=== PATIENT | female | born 1950 | race Caucasian/White ===

== ENCOUNTER 2017-05-22 18:19 | Observation (INO) ==
[2017-05-22 19:00] LABS: Basophils % 0.3 %; Eosinophils # 0.1 K/mcL (0.0-0.6); Eosinophils % 1.8 %; Hemoglobin 10.5 g/dL (11.5-15.4); Immature Granulocytes % 0.4 % (0-4); Immature Platelets 2.4 % (1.1-6.1); Lymphocytes # 0.8 K/mcL (0.6-4.6); Lymphocytes % 11.3 %; Mean Corpuscular HGB Conc 31.8 g/dL (31.6-35.5); Mean Corpuscular Hemoglobin 31.8 pg (28.0-33.3); Mean Platelet Volume 9.2 fL (9.4-12.4); Monocytes # 0.5 K/mcL (0.0-1.3); Monocytes % 6.3 %; Neutrophils # 5.8 K/mcL (1.6-8.9); Platelet Count 176 K/mcL (140-400); Red Cell Distribution Width 15.1 % (11.5-14.5); Segmented Neutrophils % 79.9 %
[2017-05-22 19:09] LABS: INR 1.2; Prothrombin Time 12.7 Seconds (9.4-12.1)
[2017-05-22 19:11] LABS: Activated Partial Thrombo Time 33.7 Seconds (26.0-36.0)
[2017-05-22 19:13] LABS: Calcium 9.8 mg/dL (8.6-10.8)
[2017-05-22 19:35] LABS: Albumin 3.6 g/dL (3.5-5.0); Albumin/Globulin Ratio 0.9 (1.1-2.2); Bilirubin,Direct 0.3 mg/dL (0.0-0.5); Bilirubin,Indirect 0.4 mg/dL (0.0-1.2); Bilirubin,Total 0.7 mg/dL (0.2-1.2); Globulin 4.1 g/dL (2.4-3.5); Total Protein 7.7 g/dL (6.0-8.3)
--- NOTE | 2017-05-22 19:46 | Emergency Department Note ---
Disposition Clinical Impression: Chest pain Qualifiers: Chest pain type: unspecified Qualified Code(s): R07.9 - Chest pain, unspecified Disposition: Admitted As Inpatient Condition: Good Referrals: Dwayne-Carole Weiss DO [Primary Care Provider] - Forms: ED Satisfaction Letter Time of Disposition: 19:59 Chest Pain HPI - General Chief Complaint: ED Chest Pain Stated Complaint: Chest Pain Time Seen by Provider: 05/22/17 18:33 Source: patient, family Mode of arrival: ambulatory Limitations: no limitations Vital Signs Reviewed: Yes Nursing Notes Reviewed: Yes - History of Present Illness HPI Narrative: Patient presents to the ED with the chief complaint of chest pain. Patient reports that for the last 4 days she has been having intermittent exertional centralized chest pressure and heaviness. States that she has had pain like this previously, but normally responds to nitroglycerin. 4 days ago she had pain that did respond to nitroglycerin, but over the past few days her pain has been coming increasingly more consistent and not responding anymore to nitroglycerin. She does complain of some shortness of breath above baseline as well. She also complains of intermittent nausea after eating and some epigastric discomfort. She does have a history of GERD and is noncompliant with her medications. Her last heart catheter was in 2010 and she does not have any history of stents or bypasses. She denies any fever, chills, headache , changes in vision, abdominal pain, vomiting, pain or swelling in her legs. No history DVT or PE. Severity scale (1-10): 0 - Related Data Home Medications Medication Instructions Recorded Confirmed Albuterol Neb [AccuNeb] 1.25 mg IH Q8H PRN 06/08/16 08/09/16 Albuterol Sulfate [Albuterol 2 puff IH Q4HR PRN 06/08/16 08/09/16 Inhaler] Allopurinol [Zyloprim 100 MG] 100 mg PO BID 06/08/16 08/09/16 Amitriptyline [Elavil] 50 mg PO HS 06/08/16 08/09/16 Aspirin 81 mg PO DAILY 06/08/16 08/09/16 Atorvastatin Calcium [Lipitor] 20 mg PO HS 06/08/16 08/09/16 Citalopram Hydrobromide [Celexa] 40 mg PO DAILY 06/08/16 08/09/16 HYDROcodone/Acet 5/325 mg [[place] 1 tab PO Q6H PRN 06/08/16 08/09/16 5-325 mg] Insulin Glargine,Hum.rec.anlog 62 unit SQ BID 06/08/16 08/09/16 [Lantus Solostar] Isosorbide MONOnitrate (24 HR) 60 mg PO DAILY 06/08/16 08/09/16 [Imdur] LORazepam [Ativan] 1 mg PO BID PRN 06/08/16 08/09/16 Magnesium Oxide [Magnesium] 2,400 mg PO DAILY 06/08/16 08/09/16 Nitroglycerin [Nitrostat] 0.4 mg SL Q5M PRN 06/08/16 08/09/16 Omeprazole [PriLOSEC] 40 mg PO Q48H 06/08/16 08/09/16 Oxygen 2 l NS AD 06/08/16 08/09/16 Tiotropium [Spiriva] 18 mcg IH 0700 06/08/16 08/09/16 metFORMIN [Glucophage] 500 mg PO BIDWM 06/08/16 08/09/16 BuPROPion XL (24 HR) [Wellbutrin 150 mg PO DAILY 08/09/16 08/09/16 Xl] Previous Rx's Medication Instructions Recorded Metoprolol [Lopressor] 12.5 mg PO BID tablet 08/11/16 Allergies Allergy/AdvReac Type Severity Reaction Status Date / Time indomethacin [From Indocin] AdvReac See Verified 08/09/16 19:54 Comments sulfamethoxazole AdvReac Gastrointestinal Verified 08/09/16 19:54 [From Bactrim] Upset trimethoprim [From Bactrim] AdvReac Gastrointestinal Verified 08/09/16 19:54 Upset All systems ED: reviewed and negative except as stated. 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 - Social History Smoking Status: Former smoker Alcohol use: Reports: none Drug use: Reports: none Physical Exam - General Limitations: no limitations General appearance: alert, in no apparent distress, obese - Head Head exam: atraumatic, normocephalic, normal inspection - Eye Eye exam: Present: normal appearance, PERRL, EOMI - ENT ENT exam: normal exam, normal oropharynx, mucous membranes moist - Chest Chest inspection: Present: normal inspection, symmetric chest wall rise - Respiratory Respiratory exam: Present: normal lung sounds bilaterally - Cardiovascular Cardiovascular exam: Present: regular rate, normal rhythm, normal heart sounds - Abdominal Exam Abdominal exam: Present: soft, Non-Tender. Absent: tenderness - Extremities Exam Extremities exam: Present: normal inspection, full ROM. Absent: tenderness, pedal edema - Neurological Exam Neurological exam: Present: alert, oriented X3 - Psychiatric Psychiatric exam: Present: normal affect, normal mood - Skin Skin exam: Present: warm, dry, intact, normal color Course Vital Signs Temperature 98.2 F 05/22/17 18:21 Pulse Rate 94 05/22/17 18:21 Respiratory Rate 20 05/22/17 18:21 Blood Pressure 120/72 05/22/17 18:21 O2 Sat by Pulse Oximetry 94 05/22/17 18:21 Temperature 98.2 F 05/22/17 18:21 Pulse Rate 88 05/22/17 19:29 Respiratory Rate 16 05/22/17 19:29 Blood Pressure 132/62 05/22/17 19:29 O2 Sat by Pulse Oximetry 98 05/22/17 19:29 Oxygen Delivery Oxygen Delivery Nasal Cannula Chest Pain - Medical Records Medical records reviewed: Yes I reviewed the patient's medical records. - Lab Data Lab results reviewed: Yes I reviewed the patient's lab results. Result diagrams: 05/22/17 18:54 05/22/17 18:54 Lab Results 05/22/17 05/22/17 05/22/17 Range/Units 18:54 18:54 18:54 WBC 7.2 (4.3-11.1) K/mcL RBC 3.30 L (3.82-4.97) M/mcL Hgb 10.5 L (11.5-15.4) g/dL Hct 33.0 L (35.3-44.9) % MCV 100.0 (83.0-100.0) fL MCH 31.8 (28.0-33.3) pg MCHC 31.8 (31.6-35.5) g/dL RDW 15.1 H (11.5-14.5) % Plt Count 176 (140-400) K/mcL MPV 9.2 L (9.4-12.4) fL Immature Gran % 0.4 (0-4) % Seg Neutrophils % 79.9 % Lymphocytes % 11.3 % Monocytes % 6.3 % Eosinophils % 1.8 % Basophils % 0.3 % Neutrophils # 5.8 (1.6-8.9) K/mcL Lymphocytes # 0.8 (0.6-4.6) K/mcL Monocytes # 0.5 (0.0-1.3) K/mcL Eosinophils # 0.1 (0.0-0.6) K/mcL Basophils # 0.0 (0.0-0.2) K/mcL Immature Plt Fraction 2.4 (1.1-6.1) % PT 12.7 H (9.4-12.1) Seconds INR 1.2 APTT 33.7 (26.0-36.0) Seconds Sodium 140 (136-145) mEq/L Potassium 4.0 (3.5-4.5) mEq/L Chloride 101 (98-109) mEq/L Carbon Dioxide 28 (19-29) mEq/L BUN 22 H (7-20) mg/dL Creatinine 1.39 H (0.57-1.11) mg/dL Est GFR ( Amer) 46 L (> 60) Est GFR (Non-Af Amer) 38 L (> 60) BUN/Creatinine Ratio 16 (6-26) Glucose 148 H (70-99) mg/dL Calculated Osmolality 296 (280-300) Calcium 9.8 (8.6-10.8) mg/dL Total Bilirubin (0.2-1.2) mg/dL Direct Bilirubin (0.0-0.5) mg/dL Indirect Bilirubin (0.0-1.2) mg/dL AST (5-34) Units/L ALT (0-55) Units/L Alkaline Phosphatase (38-126) Units/L Troponin I (0-0.03) ng/mL Serum Total Protein (6.0-8.3) g/dL Albumin (3.5-5.0) g/dL Globulin (2.4-3.5) g/dL Albumin/Globulin Ratio (1.1-2.2) Lipase (8-78) Units/L 05/22/17 05/22/17 Range/Units 18:54 18:54 WBC (4.3-11.1) K/mcL RBC (3.82-4.97) M/mcL Hgb (11.5-15.4) g/dL Hct (35.3-44.9) % MCV (83.0-100.0) fL MCH (28.0-33.3) pg MCHC (31.6-35.5) g/dL RDW (11.5-14.5) % Plt Count (140-400) K/mcL MPV (9.4-12.4) fL Immature Gran % (0-4) % Seg Neutrophils % % Lymphocytes % % Monocytes % % Eosinophils % % Basophils % % Neutrophils # (1.6-8.9) K/mcL Lymphocytes # (0.6-4.6) K/mcL Monocytes # (0.0-1.3) K/mcL Eosinophils # (0.0-0.6) K/mcL Basophils # (0.0-0.2) K/mcL Immature Plt Fraction (1.1-6.1) % PT (9.4-12.1) Seconds INR APTT (26.0-36.0) Seconds Sodium (136-145) mEq/L Potassium (3.5-4.5) mEq/L Chloride (98-109) mEq/L Carbon Dioxide (19-29) mEq/L BUN (7-20) mg/dL Creatinine (0.57-1.11) mg/dL Est GFR ( Amer) (> 60) Est GFR (Non-Af Amer) (> 60) BUN/Creatinine Ratio (6-26) Glucose (70-99) mg/dL Calculated Osmolality (280-300) Calcium (8.6-10.8) mg/dL Total Bilirubin 0.7 (0.2-1.2) mg/dL Direct Bilirubin 0.3 (0.0-0.5) mg/dL Indirect Bilirubin 0.4 (0.0-1.2) mg/dL AST 35 H (5-34) Units/L ALT 30 (0-55) Units/L Alkaline Phosphatase 146 H (38-126) Units/L Troponin I 0.00 (0-0.03) ng/mL Serum Total Protein 7.7 (6.0-8.3) g/dL Albumin 3.6 (3.5-5.0) g/dL Globulin 4.1 H (2.4-3.5) g/dL Albumin/Globulin Ratio 0.9 L (1.1-2.2) Lipase 64 (8-78) Units/L - Radiology Data Radiology results reviewed: Yes I reviewed the patient's radiology results. - EKG Data EKG attestation: Yes I reviewed and interpreted this EKG. EKG results narrative: Sinus rhythm, rate 94, NC interval 153, QRS 94, QTC 401, left axis deviation, nonspecific T-wave changes, no acute ischemic changes compared to previous. Heart Score - Score History: Highly Suspicious EKG: Non Specific repolarisation Disturbance Age: 45-65 Risk Factors: Equal/Greater than 3 risk factor or history of atherosclerotic disease Troponin: Less than normal limit HEART Score Total: 6 S.B.A.R. - S.B.A.R. Situation: Demographics, MOA Background: Presenting Complaint, Relevant PMH, Meds, & Allergies Assessment: Vital Signs, Course and respsone to treatment, Exam Concerns, Patient/Family Expectation, Pertinant Lab Results, Outstanding Labs Recommendation: Barrier(s) to disposition, Recommendation based on pending studies, treatments, or consults S.B.A.R. Report Given to: Dr. Radha HuffmanB.AChristine Repor Time: 20:02 Attestation Statement - Attestation Attestation: I personally interviewed and examined this patient and my medical decision- making was reviewed with the Resident Physician, Dr. Zavala. I agree with the documented findings, disposition and treatment plan as described except to the extent set forth below. Patient is a 66-year-old white female with a known history of coronary artery disease and has had prior Most recent was in 2010. Patient presents today with a 4 day history of intermittent exertional chest pain that she has been experiencing at home that initially was relieved with nitroglycerin but over the past 48 hours has not been working as well to alleviate her discomfort. Patient has some baseline shortness of breath with this exertion as well. Patient also complaining of some epigastric pain that is aggravated by eating and associated with some mild nausea. Patient currently following aspirin and nitroglycerin here. Rest pain-free resting comfortably with stable vital signs and is in no acute distress at this time. Patient's physical exam findings as documented. Patient's EKG was unchanged from prior with no acute ischemic changes. Patient's lab evaluation was unremarkable her upper abdominal labs including lipase were within normal limits, and initial troponin is within normal limits. Chest x-ray was clear with no pulmonary edema. Patient will be admitted for further evaluation of her chest pain. Discussed with hospitalist who accepted patient for admission.
[2017-05-22] MEDS ORDERED: Naloxone 0.4 MG/ML INJ IVP PRN (21:11)
[2017-05-22] MEDS ORDERED: Acetaminophen 325 MG TABLET PO PRN (21:11)
[2017-05-22] MEDS ORDERED: Nitroglycerin 0.4 MG TAB.SUBL SL PRN (21:15)
[2017-05-22] MEDS ORDERED: Famotidine 20 MG TABLET PO SCH (21:15)
[2017-05-22] MEDS ORDERED: *HR* HYDROcodone/Acet 5/325 mg TABLET PO PRN (21:15)
[2017-05-22] MEDS ORDERED: *HR* LORazepam 1 MG TABLET PO PRN (21:15)
[2017-05-22] MEDS ORDERED: Ipratropium/Albuterol Neb 3 ML IH PRN (21:18)
--- NOTE | 2017-05-22 21:25 | Internal Med History&Physical ---
Date of Encounter: 05/22/17 Time of Encounter: 21:23 Assessment and Plan (1) Chest pain Current visit: Yes Status: Acute Patient reporting chest pressure with activity, relieved by rest and nitro. She had Stress test 07/2016 which was negative for ischemia or infarct. Echo showed EF 60-65% with mild LV diastolic dysfunction. [facility] in 2010 reportedly showed minimal CAD according to Dr. Patel's previous outpatient note. Patient follows with Dr. Patel and last saw him in October. EKG showed no ischemic changes. Troponin was negative at 0.00. Hold morning imdur until after stress test. Continuous gambling monitor serial troponins echocardiogram and stress test. Qualifiers: Chest pain type: unspecified Qualified Code(s): R07.9 - Chest pain, unspecified (2) Type 2 diabetes mellitus Current visit: Yes Status: Chronic Check Hgb A1c Diabetic diet. Check blood sugars ACHS and Q6hr while NPO Long acting insulin 52u BID, hold morning dose until after testing and taking PO (home dose is 62u BID) Continue home dose of short acting 14u TIDWM, hold while NPO and give sliding scale correction Q6hr while NPO. hypoglycemic protocol. 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 Lora as an outpatient for CKD 3. Her creatinine of 1.39 is consistent with her CKD 3, and slightly above her previous baseline of 1.31. Check chemistry daily. Qualifiers: Chronic kidney disease stage: stage 3 (moderate) Qualified Code(s): N18.3 - Chronic kidney disease, stage 3 (moderate) (4) COPD (chronic obstructive pulmonary disease) Current visit: Yes Status: Chronic Patient wears 2L O2 at home. She denies any increased shortness of breath or coughing. Not in exacerbation. duoneb treatments QID PRN continue home dose of Spiriva, albuterol. Titrate O2 to maintain saturation > 92%. Qualifiers: COPD type: unspecified COPD Qualified Code(s): J44.9 - Chronic obstructive pulmonary disease, unspecified (5) SILVIA (obstructive sleep apnea) Current visit: Yes Status: Chronic Patient reports she wears Bipap overnight. Respiratory therapy consulted for bipap. (6) DVT prophylaxis Current visit: Yes Status: Acute anti-embolic stockings heparin 5000u TID Internal Medicine - H&P: HPI Chief complaint: chest pain Admitted From: Emergency Dept Plans for Post Hospital Care: Home History of present illness: Ms. Campa is a 66 year old female with COPD, type 2 DM, HTN, HLD, CKD3, sleep apnea, CHF, sleep apnea, who presented to the ED with complaints of chest pain. Patient reports she has not felt well since last Sunday, reporting she's felt tired, weak, with poor appetite, nausea and some diarrhea. She reports she started having chest pressure on Sunday with activity, relieved by rest and nitro. The episodes of chest pain increased in frequency and intensity through today, when she felt like the chest pressure was not relieved by the nitro. She reports occasional chills, lightheadedness, palpitations. She denies any increased coughing or shortness of breath. Evaluation in the ED included an EKG which showed no ischemic changes. Troponin was negative at 0.00. CXR showed no acute process. Creatinine was mildly elevated above her previous baseline to 1.39. She was anemic with Hgb of 10.5, down from previous of 11.3 last July. She was satting in the 90s on her 2L O2 she wears at home. On exam, patient was alert and oriented, in no acute distress. She is morbidly obese. Lungs were clear bilaterally to auscultation, heart had regular rate and rhythm. No peripheral edema. Past Med Surg Social Fam HX - Past Medical History Medical history: CHF, COPD, coronary artery disease, diabetes, hyperlipidemia, hypertension, renal disease Psychiatric history: anxiety, depression - Past Surgical History Surgical History: appendectomy, cholecystectomy, hysterectomy, knee replacement - Social History Smoking Status: Former smoker Smokeless Tobacco Status: No Alcohol use: none Drug use: none - Family History Daughter Hx Family Cancer: Yes (unknown what kind) Mother Living Status: Still Living Hx Family Cardiac Disorders: Yes Father Living Status: Age at : 41 Cause of : stomach cancer Hx Family Cancer: Yes Internal Medicine - H&P: Meds Albuterol Neb [AccuNeb] 1.25 mg IH Q8H PRN 06/08/16 [History] Albuterol Sulfate [Albuterol Inhaler] 2 puff IH Q4HR PRN 06/08/16 [History] Allopurinol [Zyloprim 100 MG] 100 mg PO BID 06/08/16 [History] Amitriptyline [Elavil] 50 mg PO HS 06/08/16 [History] Aspirin 81 mg PO DAILY 06/08/16 [History] Atorvastatin Calcium [Lipitor] 40 mg PO HS 06/08/16 [History] Citalopram Hydrobromide [Celexa] 40 mg PO DAILY 06/08/16 [History] HYDROcodone/Acet 5/325 mg [[place] 5-325 mg] 1 tab PO Q6H PRN 06/08/16 [History] Insulin Glargine,Hum.rec.anlog [Lantus Solostar] 100 unit SQ BID 06/08/16 [ History] Isosorbide MONOnitrate (24 HR) [Imdur] 60 mg PO DAILY 06/08/16 [History] LORazepam [Ativan] 1 mg PO BID PRN 06/08/16 [History] Magnesium Oxide [Magnesium] 1,200 mg PO BID 06/08/16 [History] Nitroglycerin [Nitrostat] 0.4 mg SL Q5M PRN 06/08/16 [History] Omeprazole [PriLOSEC] 40 mg PO DAILY PRN 06/08/16 [History] Oxygen 2 l NS AD 06/08/16 [History] Tiotropium [Spiriva] 18 mcg IH 0700 06/08/16 [History] metFORMIN [Glucophage] 500 mg PO BIDWM 06/08/16 [History] BuPROPion XL (24 HR) [Wellbutrin Xl] 150 mg PO DAILY 08/09/16 [History] Insulin ASPART [NovoLOG] 14 unit SQ TIDAC 05/22/17 [History] Multivitamin [Multi-Day Vitamins] 1 each PO DAILY 05/22/17 [History] Allergies indomethacin [From Indocin] Adverse Reaction (Verified 08/09/16 19:54) See Comments Patient state she was hospitalized after taking "effected my whole system" sulfamethoxazole [From Bactrim] Adverse Reaction (Verified 08/09/16 19:54) Gastrointestinal Upset trimethoprim [From Bactrim] Adverse Reaction (Verified 08/09/16 19:54) Gastrointestinal Upset All Systems PM: A 10-system review of systems was performed and is negative for pertinent findings except as documented above in the HPI. - Constitutional Constitutional: anorexia, chills, no fever(s), no night sweats - EENT Eyes: no change in vision, no discharge, no pain, no photophobia Ears: no ear discharge, no ear pain, no tinnitus Nose, mouth and throat: no dysphagia, no nasal discharge, no neck pain, no sore throat - Cardiovascular Cardiovascular ROS IM: chest pain, dyspnea on exertion, lightheadedness, palpitations, no diaphoresis, no dyspnea, no syncope - Respiratory Respiratory: dyspnea, no cough, no wheezing, no excessive phlegm production - Gastrointestinal Gastrointestinal: diarrhea, nausea, no abdominal pain, no hematemesis, no hematochezia, no melena, no vomiting - Genitourinary Genitourinary: no change in urinary stream, no dysuria, no flank pain, no hematuria - Musculoskeletal Musculoskeletal ROS IM: no numbness, no tingling - Integumentary Integumentary IM: no rash, no unusual bruising - Neurological Neurological ROS: no confusion, no convulsions, no focal weakness, no numbness, no tingling, no tremor(s) - Hematologic/Lymphatic Hematologic/Lymphatic: no easy bruising - Constitutional Vitals: Temp Pulse Resp BP Pulse Ox 98.2 F 90 14 127/64 95 05/22/17 18:21 05/22/17 20:30 05/22/17 21:11 05/22/17 21:11 05/22/17 20:30 General appearance: Present: A&O X 3, morbidly obese, pleasant, no acute distress - Head Head exam: Present: atraumatic, normocephalic - Eye Eye exam: Present: PERRL, conjuntiva pink, sclera anicteric Pupils: Present: PERRL - Neck Neck exam general surgery: Present: supple, trachea midline. Absent: lymphadenopathy - Respiratory Respiratory exam: Present: CTAB. Absent: accessory muscle use, rales, rhonchi, wheezes - Cardiovascular Cardiovascular exam: Present: RRR, +S1, +S2. Absent: diastolic murmur, gallop, rubs, systolic murmur - GI/Abdominal GI/Abdominal exam: Present: normal bowel sounds, soft, no peritoneal signs. Absent: distended, tenderness - Extremities Exam Extremities exam: Present: warm, radial pulses palpable and symmetrical. Absent : calf tenderness, cyanotic, pedal edema - Neurological Exam Neurological exam: Present: CN II-XII intact, oriented X3, no focal deficits. Absent: facial droop, speech deficit - Skin Skin exam: Present: dry, intact Internal Med - H&P Results - Labs CBC & Chem 7: 05/22/17 18:54 05/22/17 18:54 Labs: All Lab Results (24 Hours) 05/22/17 05/22/17 05/22/17 Range/Units 18:54 18:54 18:54 WBC 7.2 (4.3-11.1) K/mcL RBC 3.30 L (3.82-4.97) M/mcL Hgb 10.5 L (11.5-15.4) g/dL Hct 33.0 L (35.3-44.9) % MCV 100.0 (83.0-100.0) fL MCH 31.8 (28.0-33.3) pg MCHC 31.8 (31.6-35.5) g/dL RDW 15.1 H (11.5-14.5) % Plt Count 176 (140-400) K/mcL MPV 9.2 L (9.4-12.4) fL Immature Gran % 0.4 (0-4) % Seg Neutrophils % 79.9 % Lymphocytes % 11.3 % Monocytes % 6.3 % Eosinophils % 1.8 % Basophils % 0.3 % Neutrophils # 5.8 (1.6-8.9) K/mcL Lymphocytes # 0.8 (0.6-4.6) K/mcL Monocytes # 0.5 (0.0-1.3) K/mcL Eosinophils # 0.1 (0.0-0.6) K/mcL Basophils # 0.0 (0.0-0.2) K/mcL Immature Plt Fraction 2.4 (1.1-6.1) % PT 12.7 H (9.4-12.1) Seconds INR 1.2 APTT 33.7 (26.0-36.0) Seconds Sodium 140 (136-145) mEq/L Potassium 4.0 (3.5-4.5) mEq/L Chloride 101 (98-109) mEq/L Carbon Dioxide 28 (19-29) mEq/L BUN 22 H (7-20) mg/dL Creatinine 1.39 H (0.57-1.11) mg/dL Est GFR ( Amer) 46 L (> 60) Est GFR (Non-Af Amer) 38 L (> 60) BUN/Creatinine Ratio 16 (6-26) Glucose 148 H (70-99) mg/dL Calculated Osmolality 296 (280-300) Calcium 9.8 (8.6-10.8) mg/dL Magnesium 2.0 (1.6-2.6) mg/dL Total Bilirubin (0.2-1.2) mg/dL Direct Bilirubin (0.0-0.5) mg/dL Indirect Bilirubin (0.0-1.2) mg/dL AST (5-34) Units/L ALT (0-55) Units/L Alkaline Phosphatase (38-126) Units/L Troponin I (0-0.03) ng/mL Serum Total Protein (6.0-8.3) g/dL Albumin (3.5-5.0) g/dL Globulin (2.4-3.5) g/dL Albumin/Globulin Ratio (1.1-2.2) Lipase (8-78) Units/L 05/22/17 05/22/17 Range/Units 18:54 18:54 WBC (4.3-11.1) K/mcL RBC (3.82-4.97) M/mcL Hgb (11.5-15.4) g/dL Hct (35.3-44.9) % MCV (83.0-100.0) fL MCH (28.0-33.3) pg MCHC (31.6-35.5) g/dL RDW (11.5-14.5) % Plt Count (140-400) K/mcL MPV (9.4-12.4) fL Immature Gran % (0-4) % Seg Neutrophils % % Lymphocytes % % Monocytes % % Eosinophils % % Basophils % % Neutrophils # (1.6-8.9) K/mcL Lymphocytes # (0.6-4.6) K/mcL Monocytes # (0.0-1.3) K/mcL Eosinophils # (0.0-0.6) K/mcL Basophils # (0.0-0.2) K/mcL Immature Plt Fraction (1.1-6.1) % PT (9.4-12.1) Seconds INR APTT (26.0-36.0) Seconds Sodium (136-145) mEq/L Potassium (3.5-4.5) mEq/L Chloride (98-109) mEq/L Carbon Dioxide (19-29) mEq/L BUN (7-20) mg/dL Creatinine (0.57-1.11) mg/dL Est GFR ( Amer) (> 60) Est GFR (Non-Af Amer) (> 60) BUN/Creatinine Ratio (6-26) Glucose (70-99) mg/dL Calculated Osmolality (280-300) Calcium (8.6-10.8) mg/dL Magnesium (1.6-2.6) mg/dL Total Bilirubin 0.7 (0.2-1.2) mg/dL Direct Bilirubin 0.3 (0.0-0.5) mg/dL Indirect Bilirubin 0.4 (0.0-1.2) mg/dL AST 35 H (5-34) Units/L ALT 30 (0-55) Units/L Alkaline Phosphatase 146 H (38-126) Units/L Troponin I 0.00 (0-0.03) ng/mL Serum Total Protein 7.7 (6.0-8.3) g/dL Albumin 3.6 (3.5-5.0) g/dL Globulin 4.1 H (2.4-3.5) g/dL Albumin/Globulin Ratio 0.9 L (1.1-2.2) Lipase 64 (8-78) Units/L - Diagnostic Studies Chest x-ray Additional comments: Chest X-Ray 05/22/17 18:33 IMPRESSION: No acute process. D/ / Radu Moy MD / Radu Moy MD Interpreting Provider: Radu Moy MD
[2017-05-22] MEDS ORDERED: *HR* Dextrose 50 % in Water (Syg) 50 ML SYRINGE IVP PRN (21:26)
[2017-05-22] MEDS ORDERED: Dextrose Gel 15 GM PO PRN ×2 (21:26)
[2017-05-22] MEDS ORDERED: D5% in Water 1,000 ML IVC PRN (21:26)
[2017-05-22] MEDS ORDERED: Insulin DETEMIR 100 UNIT/ML X5UNITS SQ SCH ×2 (21:30→21:31)
[2017-05-22 21:57] LABS: Hemoglobin A1C 6.5 %
[2017-05-22] MEDS ORDERED: Aspirin 325 MG TABLET PO ONE (21:59)
[2017-05-22] MEDS: *HR* Heparin 5,000 UNIT/ML VIAL SQ SCH (23:04)
[2017-05-23] MEDS ORDERED: 0.9 % Sodium Chloride 1,000 ML IVC SCH (00:15)
[2017-05-23 01:23] LABS: Basophils % 0.3 %; Eosinophils # 0.2 K/mcL (0.0-0.6); Eosinophils % 2.7 %; Hematocrit 32.8 % (35.3-44.9); Hemoglobin 10.4 g/dL (11.5-15.4); Immature Granulocytes % 0.3 % (0-4); Lymphocytes # 1.4 K/mcL (0.6-4.6); Mean Corpuscular HGB Conc 31.7 g/dL (31.6-35.5); Mean Corpuscular Hemoglobin 31.9 pg (28.0-33.3); Mean Corpuscular Volume 100.6 fL (83.0-100.0); Mean Platelet Volume 9.4 fL (9.4-12.4); Monocytes # 0.5 K/mcL (0.0-1.3); Neutrophils # 4.6 K/mcL (1.6-8.9); Platelet Count 155 K/mcL (140-400); Red Blood Count 3.26 M/mcL (3.82-4.97); Red Cell Distribution Width 15.3 % (11.5-14.5); Segmented Neutrophils % 68.7 %
[2017-05-23 01:35] LABS: Calcium 9.7 mg/dL (8.6-10.8); Potassium 4.4 mEq/L (3.5-4.5)
[2017-05-23] MEDS: Insulin LISPRO 300 UNITS/3 ML VIAL SQ SCH ×2 (01:47→06:39)
[2017-05-23] MEDS: *HR* Heparin 5,000 UNIT/ML VIAL SQ SCH (06:39)
[2017-05-23 06:54] VITALS: BP 126/77
[2017-05-23] MEDS ORDERED: Tiotropium 18 MCG inhalation IH SCH (07:00)
[2017-05-23] MEDS ORDERED: Insulin LISPRO 300 UNITS/3 ML VIAL SQ SCH (08:00)
--- NOTE | 2017-05-23 08:43 | Internal Med Progress Note ---
Date of Encounter: 05/23/17 Time of Encounter: 08:41 - Subjective Interval history: Pt seen and examined. She states her chest pain is not present at the time and she does not have any issues with breathing while on her home dose oxygen. Does not have nausea, vomiting, diarrhea. - Constitutional Vitals: Temp Pulse Resp BP Pulse Ox 97.9 F 86 18 126/77 94 05/23/17 06:45 05/23/17 06:45 05/23/17 06:45 05/23/17 06:45 05/23/17 06:45 General appearance: Present: cooperative, morbidly obese, pleasant, no acute distress - Head Head exam: Present: atraumatic, normocephalic - Eye Eye exam: Present: PERRL, conjuntiva pink, sclera anicteric - Neck Neck exam general surgery: Present: supple, trachea midline. Absent: lymphadenopathy - Respiratory Respiratory exam: Present: CTAB. Absent: accessory muscle use, rales, rhonchi, wheezes - Cardiovascular Cardiovascular exam: Present: RRR, +S1, +S2. Absent: diastolic murmur, gallop, rubs, systolic murmur - GI/Abdominal GI/Abdominal exam: Present: normal bowel sounds, soft, no peritoneal signs. Absent: distended, tenderness - Extremities Exam Extremities exam: Present: warm, radial pulses palpable and symmetrical. Absent : calf tenderness, cyanotic, pedal edema - Neurological Exam Neurological exam: Present: alert, no focal deficits. Absent: facial droop, speech deficit - Skin Skin exam: Present: dry, intact Internal Medicine: Result - Labs CBC & Chem 7: 05/23/17 01:07 05/23/17 01:07 Labs: Short CBC 05/23/17 Range/Units 01:07 WBC 6.8 (4.3-11.1) K/mcL Hgb 10.4 L (11.5-15.4) g/dL Hct 32.8 L (35.3-44.9) % Plt Count 155 (140-400) K/mcL Neutrophils # 4.6 (1.6-8.9) K/mcL BMP 05/23/17 01:07 Sodium 139 Potassium 4.4 Chloride 101 Carbon Dioxide 28 BUN 23 H Creatinine 1.58 H Glucose 242 H Calcium 9.7 Cardiac Enzymes 05/23/17 05/23/17 Range/Units 01:07 06:57 Troponin I 0.00 0.00 (0-0.03) ng/mL - ABG Interpretation ABG results: PT/INR, D-dimer PT 12.7 Seconds (9.4-12.1) H 05/22/17 18:54 Consult Discharge Plan - Plan Referrals: Carole Spears DO [Primary Care Provider] -
[2017-05-23] MEDS ORDERED: Magnesium Oxide 400 MG TABLET PO SCH (09:00)
[2017-05-23] MEDS ORDERED: Famotidine 20 MG TABLET PO SCH (09:00)
[2017-05-23] MEDS ORDERED: BuPROPion XL (24 HR) 150 MG TABLET PO SCH (09:00)
[2017-05-23] MEDS ORDERED: Isosorbide MONOnitrate (24 HR) 60 MG TAB.ER.24H PO SCH (09:00)
[2017-05-23] MEDS ORDERED: Aspirin 81 MG TAB.CHEW PO SCH (09:00)
[2017-05-23] MEDS ORDERED: GI Cocktail 40 ML EACH PO ONE (10:10)
--- NOTE | 2017-05-23 10:36 | Cardiology Progress Note ---
Date of Encounter: 05/23/17 Time of Encounter: 10:30 Assessment and Plan Discussion w patient/family: The assessment and plan as outlined above was discussed with the patient and/or family members who expressed understanding and agreement. All questions were answered. Thank you for involving us in the care of your patient. Please call with any questions. Subjective Principal diagnosis: Chest pain Interval history: Mrs. Campa is a 66 y.o. female with past medical history significant for of NIDDM and CKD who was admitted to [facility] on 05/23/17 with chest pain. Cardiology is consulted on 05/23/17 for recommendations on further workup. Patient has had a LHC in 2010 which revealed minimal CAD at that time. she as also had a nuclear stress test in July of 2016 that was negative for ischemia or infarct at that time. Today Mrs. Campa states that shebegan having symptoms last Sunday however they have been persistent since Sunday. She sates she was having moderate to sever chest pressure that did not radiate. She thinks it may have worsened with exertion or emotional stresses but is not sure. She denies any exacerbation by position. It was not relieved by nitroglycerine. She dose have some relief with rest. She denies any increased dyspnea, diaphoresis, syncope, presyncope. She has had some Nausea. She also admits to having emotional stresses with her adult children having to move back in with her. She has no further complaints or concerns at this time. Objective Vital Signs, Last 4 Hours Temp Pulse Resp BP Pulse Ox 05/23/17 09:25 94 05/23/17 06:45 97.9 F 86 18 126/77 94 Results 05/23/17 01:07 05/23/17 01:07 Lab Results 05/23/17 05/23/17 05/23/17 01:07 01:07 01:07 WBC 6.8 Hgb 10.4 L Hct 32.8 L Plt Count 155 Sodium 139 Potassium 4.4 Chloride 101 Carbon Dioxide 28 BUN 23 H Creatinine 1.58 H Glucose 242 H Calcium 9.7 Troponin I 0.00 05/23/17 06:57 WBC Hgb Hct Plt Count Sodium Potassium Chloride Carbon Dioxide BUN Creatinine Glucose Calcium Troponin I 0.00 Consult Discharge Plan - Plan Referrals: Dwayne-Carole Weiss DO [Primary Care Provider] -
--- NOTE | 2017-05-23 10:39 | Cardiology Consult Note ---
<Wilton King - Last Filed: 05/23/17 13:06> Date of Encounter: 05/23/17 Time of Encounter: 10:37 Assessment and Plan (1) Atypical chest pain Status: Acute Patient with persistent chest pain since sunday. She is unsure if worsened by exertion. Not relieved with NTG. No acute changes in her EKG. TN 0.00 X 3. She has epigastric tenderness on exam and states this is similar to her symptoms. Also having Nausea after meals last few days. She has had a LHC in 2010 which revealed minimal CAD. She had a Nuclear stress test and echocardiogram in july of 2016 that revealed no major abnormalities. Given her prior LHC and recent cardiac testing as well as her history and exam would not recommend any further cardiac testing at this time. Discussed with patient and she is agreeable to this plan. Would consider dyspepsia. We will give the patient a GI cocktail and reasses. May consider adding a PPI. Would also consider anxiety given her recent home stresses. Thank you for consulting cardiology. (2) Diabetes Status: Acute mgmt per primary team. Qualifiers: Qualified Code(s): E11.9 - Type 2 diabetes mellitus without complications (3) CKD (chronic kidney disease) Status: Acute stage 3a/b SCR slightly above baseline. continue to monitor. avoid nephrotoxins. Qualifiers: Chronic kidney disease stage: stage 3 (moderate) Qualified Code(s): N18.3 - Chronic kidney disease, stage 3 (moderate) (4) Morbid obesity Status: Acute advise weight loss (5) Former smoker Status: Acute Discussion w patient/family: The assessment and plan as outlined above was discussed with the patient and/or family members who expressed understanding and agreement. All questions were answered. Thank you for involving us in the care of your patient. Please call with any questions. History of Present Illness Consult date: 05/23/17 Requesting physician: Bhargav Farah Consult reason: Chest pain Chief complaint: chest pain History of present illness: Mrs. Campa is a 66 y.o. female with past medical history significant for of NIDDM and CKD who was admitted to [facility] on 05/23/17 with chest pain. Cardiology is consulted on 05/23/17 for recommendations on further workup. Patient has had a LHC in 2010 which revealed minimal CAD at that time. she as also had a nuclear stress test in July of 2016 that was negative for ischemia or infarct at that time. Today Mrs. Campa states that she began having symptoms last Sunday however they have been persistent since Sunday. She sates she was having moderate to sever chest pressure that did not radiate. She thinks it may have worsened with exertion or emotional stresses but is not sure. She denies any exacerbation by position. It was not relieved by nitroglycerine. She dose have some relief with rest. She denies any increased dyspnea, diaphoresis, syncope, presyncope. She has had some Nausea. She also admits to having emotional stresses with her adult children having to move back in with her. She has no further complaints or concerns at this time. Past Med Surg Social Fam HX - Past Medical History Medical history: CHF, COPD, coronary artery disease, diabetes, hyperlipidemia, hypertension, renal disease Psychiatric history: anxiety, depression - Past Surgical History Surgical History: appendectomy, cholecystectomy, hysterectomy, knee replacement - Social History Smoking Status: Former smoker Smokeless Tobacco Status: No Alcohol use: none Drug use: none - Family History Mother Living Status: Still Living Hx Family Cardiac Disorders: Yes Father Living Status: Age at : 41 Cause of : stomach cancer Hx Family Cancer: Yes Daughter Hx Family Cancer: Yes (unknown what kind) Medications and Allergies Albuterol Neb [AccuNeb] 1.25 mg IH Q8H PRN 06/08/16 [History] Albuterol Sulfate [Albuterol Inhaler] 2 puff IH Q4HR PRN 06/08/16 [History] Allopurinol [Zyloprim 100 MG] 100 mg PO BID 06/08/16 [History] Amitriptyline [Elavil] 50 mg PO HS 06/08/16 [History] Aspirin 81 mg PO DAILY 06/08/16 [History] Atorvastatin Calcium [Lipitor] 40 mg PO HS 06/08/16 [History] Citalopram Hydrobromide [Celexa] 40 mg PO DAILY 06/08/16 [History] HYDROcodone/Acet 5/325 mg [[place] 5-325 mg] 1 tab PO Q6H PRN 06/08/16 [History] Insulin Glargine,Hum.rec.anlog [Lantus Solostar] 100 unit SQ BID 06/08/16 [ History] Isosorbide MONOnitrate (24 HR) [Imdur] 60 mg PO DAILY 06/08/16 [History] LORazepam [Ativan] 1 mg PO BID PRN 06/08/16 [History] Magnesium Oxide [Magnesium] 1,200 mg PO BID 06/08/16 [History] Nitroglycerin [Nitrostat] 0.4 mg SL Q5M PRN 06/08/16 [History] Omeprazole [PriLOSEC] 40 mg PO DAILY PRN 06/08/16 [History] Oxygen 2 l NS AD 06/08/16 [History] Tiotropium [Spiriva] 18 mcg IH 0700 06/08/16 [History] metFORMIN [Glucophage] 500 mg PO BIDWM 06/08/16 [History] BuPROPion XL (24 HR) [Wellbutrin Xl] 150 mg PO DAILY 08/09/16 [History] Insulin ASPART [NovoLOG] 14 unit SQ TIDAC 05/22/17 [History] Multivitamin [Multi-Day Vitamins] 1 each PO DAILY 05/22/17 [History] Omeprazole [PriLOSEC] 40 mg PO DAILY #30 cap 05/23/17 [Rx] Allergies indomethacin [From Indocin] Adverse Reaction (Verified 08/09/16 19:54) See Comments Patient state she was hospitalized after taking "effected my whole system" sulfamethoxazole [From Bactrim] Adverse Reaction (Verified 08/09/16 19:54) Gastrointestinal Upset trimethoprim [From Bactrim] Adverse Reaction (Verified 08/09/16 19:54) Gastrointestinal Upset All Systems Review: A 10-system review of systems was performed and is negative for pertinent findings except as documented above in the HPI. - Constitutional Constitutional: no anorexia, no chills, no fever(s), no malaise, no night sweats , no weakness, no weight gain, no weight loss - EENT Eyes: no blurred vision, no pain Nose, mouth and throat: no bleeding gums, no epistaxis - Cardiovascular Cardiovascular: as per HPI - Respiratory Respiratory: no cough, no dyspnea, no hemoptysis - Gastrointestinal Gastrointestinal: abdominal pain (epigastic), no coffee ground emesis, no hematemesis, no hematochezia - Genitourinary Genitourinary: no dysuria, no hematuria, no nocturia - Musculoskeletal Musculoskeletal: no muscle cramps, no muscle weakness - Integumentary Integumentary: no erythema, no rash - Neurological Neurological: no abnormal speech, no dizziness, no focal weakness - Psychiatric Psychiatric: anxiety - Hematological/Lymphatic Hematologic/Lymphatic: no easy bleeding, no easy bruising Physical Examination Vital Signs, Last 4 Hours Temp Pulse Resp BP Pulse Ox 05/23/17 09:25 94 05/23/17 06:45 97.9 F 86 18 126/77 94 General: Conversant, No Apparent Distress HEENT: Atraumatic, Normocephaly, Mucus Membranes Moist Neck: No JVD, Normal carotid pulses Cardiac: Reg Rate and Rhythm, Normal S1 and S2, No Murmur Lungs: Normal Breath Sounds, No Wheeze, Rales, Rhonchi Neuro: Alert and responsive, No focal deficits noted Abdomen: Soft, Other (tenerness in the epigastric region. ) Skin: No rashes noted on visualized skin Musculoskeletal: No Chest Wall Tenderness Extremities: No Clubbing, No Cyanosis, No Edema Results 05/23/17 01:07 05/23/17 01:07 Lab Results 05/23/17 05/23/17 05/23/17 01:07 01:07 01:07 WBC 6.8 Hgb 10.4 L Hct 32.8 L Plt Count 155 Sodium 139 Potassium 4.4 Chloride 101 Carbon Dioxide 28 BUN 23 H Creatinine 1.58 H Glucose 242 H Calcium 9.7 Troponin I 0.00 05/23/17 06:57 WBC Hgb Hct Plt Count Sodium Potassium Chloride Carbon Dioxide BUN Creatinine Glucose Calcium Troponin I 0.00 - Imaging and Cardiology Chest Xray: report reviewed, image reviewed - EKG Interpretation EKG results cardiology: personally reviewed, normal ECG, sinus rhythm Consult Discharge Plan - Plan Instructions: Omeprazole (By mouth), Chronic Kidney Disease (DC), Diabetes Mellitus Type 2 in Adults (DC) Additional Instructions: Please follow up with your pcp within 1 week and can reforming 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 Referrals: Able-Carole Weiss DO [Primary Care Provider] - (Tried calling this number so many times., nobody grain picker. Please make sure you call for an apppt. for hospital follow up) Owen Kelley DO [Partnered Physician] - Prescriptions: Omeprazole [PriLOSEC] 40 mg PO DAILY #30 cap <Shelby Franklin - Last Filed: 05/23/17 17:35> Date of Encounter: 05/23/17 Assessment and Plan Discussion w patient/family: The assessment and plan as outlined above was discussed with the patient and/or family members who expressed understanding and agreement. All questions were answered. Thank you for involving us in the care of your patient. Please call with any questions. History of Present Illness History of present illness: Ms. Campa is a 66 year old female All Systems Review: A 10-system review of systems was performed and is negative for pertinent findings except as documented above in the HPI. Results 05/23/17 01:07 05/23/17 01:07 Lab Results 05/23/17 05/23/17 05/23/17 01:07 01:07 01:07 WBC 6.8 Hgb 10.4 L Hct 32.8 L Plt Count 155 Sodium 139 Potassium 4.4 Chloride 101 Carbon Dioxide 28 BUN 23 H Creatinine 1.58 H Glucose 242 H Calcium 9.7 Troponin I 0.00 05/23/17 06:57 WBC Hgb Hct Plt Count Sodium Potassium Chloride Carbon Dioxide BUN Creatinine Glucose Calcium Troponin I 0.00 - Attending Attestation I examined this patient and my medical decision-making was reviewed with the Resident Physician. I agree with the documented findings, disposition and treatment plan. Ms. Campa presents with epigastric discomfort that is reproducible on palpation. Her symptoms have been persistent for several days and made worse with food. She admits to taking her PPI only intermittently. Her troponins have been negative and ECG without concerning findings. She had a stress test in July that was negative for ischemia. No further cardiac testing is warranted. Recommend evaluation by GI.
--- NOTE | 2017-05-23 11:08 | Discharge Summary ---
<Amauri Ervin - Last Filed: 05/23/17 14:46> Date of Encounter: 05/23/17 Time of Encounter: 11:04 - Discharge Diagnosis (1) Chest pain Priority: Primary Status: Acute Qualifiers: Chest pain type: unspecified Qualified Code(s): R07.9 - Chest pain, unspecified (2) CKD (chronic kidney disease) Priority: Secondary Status: Acute Qualifiers: Chronic kidney disease stage: stage 3 (moderate) Qualified Code(s): N18.3 - Chronic kidney disease, stage 3 (moderate) (3) Morbid obesity Priority: Secondary Status: Acute (4) COPD (chronic obstructive pulmonary disease) Priority: Secondary Status: Chronic Qualifiers: COPD type: unspecified COPD Qualified Code(s): J44.9 - Chronic obstructive pulmonary disease, unspecified (5) Hypertension Priority: Secondary Status: Chronic Qualifiers: Hypertension type: essential hypertension Qualified Code(s): I10 - Essential (primary) hypertension (6) Type 2 diabetes mellitus Priority: Secondary Status: Chronic Qualifiers: Diabetes mellitus complication status: with unspecified complications Diabetes mellitus rn long term care insulin use: with rn long term care use Qualified Code(s) : E11.8 - Type 2 diabetes mellitus with unspecified complications; 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 (7) DVT prophylaxis Priority: Secondary Status: Acute - Discharge Medications Prescriptions: Omeprazole [PriLOSEC] 40 mg PO DAILY #30 cap Home Medications: Albuterol Neb [AccuNeb] 1.25 mg IH Q8H PRN 06/08/16 [History] Albuterol Sulfate [Albuterol Inhaler] 2 puff IH Q4HR PRN 06/08/16 [History] Allopurinol [Zyloprim 100 MG] 100 mg PO BID 06/08/16 [History] Amitriptyline [Elavil] 50 mg PO HS 06/08/16 [History] Aspirin 81 mg PO DAILY 06/08/16 [History] Atorvastatin Calcium [Lipitor] 40 mg PO HS 06/08/16 [History] Citalopram Hydrobromide [Celexa] 40 mg PO DAILY 06/08/16 [History] HYDROcodone/Acet 5/325 mg [[place] 5-325 mg] 1 tab PO Q6H PRN 06/08/16 [History] Insulin Glargine,Hum.rec.anlog [Lantus Solostar] 100 unit SQ BID 06/08/16 [ History] Isosorbide MONOnitrate (24 HR) [Imdur] 60 mg PO DAILY 06/08/16 [History] LORazepam [Ativan] 1 mg PO BID PRN 06/08/16 [History] Magnesium Oxide [Magnesium] 1,200 mg PO BID 06/08/16 [History] Nitroglycerin [Nitrostat] 0.4 mg SL Q5M PRN 06/08/16 [History] Omeprazole [PriLOSEC] 40 mg PO DAILY PRN 06/08/16 [History] Oxygen 2 l NS AD 06/08/16 [History] Tiotropium [Spiriva] 18 mcg IH 0700 06/08/16 [History] metFORMIN [Glucophage] 500 mg PO BIDWM 06/08/16 [History] BuPROPion XL (24 HR) [Wellbutrin Xl] 150 mg PO DAILY 08/09/16 [History] Insulin ASPART [NovoLOG] 14 unit SQ TIDAC 05/22/17 [History] Multivitamin [Multi-Day Vitamins] 1 each PO DAILY 05/22/17 [History] Omeprazole [PriLOSEC] 40 mg PO DAILY #30 cap 05/23/17 [Rx] Allergies/Adverse Reactions: Allergies indomethacin [From Indocin] Adverse Reaction (Verified 08/09/16 19:54) See Comments Patient state she was hospitalized after taking "effected my whole system" sulfamethoxazole [From Bactrim] Adverse Reaction (Verified 08/09/16 19:54) Gastrointestinal Upset trimethoprim [From Bactrim] Adverse Reaction (Verified 08/09/16 19:54) Gastrointestinal Upset Procedures/tests Complete & Pending: Procedures Performed prior 72 hours Category Date Time Status EV echocardiogram Routine Y 05/22/17 21:19 Ordered Date of admission: 05/22/17 20:16 Primary care physician: Carole Rice Consults: 05/23/17 00:05 Consult to Cardiology [CONS] Routine Comment: Consulting Provider: Paul Trujillo Reason for Consult: 66F with exertional chest pain relieved by nitro and rest , negative stress test in 07/2016. Risk factors include DM, obesity, HTN. Please evaluate need for LHC given concerning symptoms and risk factors Call Completed: No Discharging clinician: Amauri Ervin Anticipated date of discharge: 05/23/17 - Patient Status Disposition: Home, Self-Care Condition: Good Functional capacity at discharge: independent ambulation Overall status at discharge: patient is progressing back to baseline - Discharge Instructions Instructions: Omeprazole (By mouth), Chronic Kidney Disease (DC), Diabetes Mellitus Type 2 in Adults (DC) Follow Up With: Dwayne-Carole Weiss DO [Primary Care Provider] - (Tried calling this number so many times., nobody tack picker. Please make sure you call for an apppt. for hospital follow up) Owen Kelley DO [Partnered Physician] - Additional Instructions: Please follow up with your pcp within 1 week and bilingual trainer 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 - Diet and Activity Activity: increase activity as tolerated Diet: low fat, low cholesterol Interval History: Pt seen and examined. She states her chest pain is not present at the time and she does not have any issues with breathing while on her home dose oxygen. Does not have nausea, vomiting, diarrhea. Hospital course: Ms. Campa is a 66 year old female who presents with chest pain that started last Sunday. She states it started with weakness that began last . The pain was related with exertion and relieved with rest. Patient did have a recent echo and stress test last July, both which were negative. She also had a LHC in 2010 which showed minimal stenosis. She had negative troponins and EKD did not show any acute changes. Cardiology was consulted as she was deemed high risk for CAD and they did not believe it was cardiac in etiology. It was likely due to her anxiety vs. GERD since she stopped taking her Omeprazole. She will be going back home with PPI and will see Dr. Kelley for hospital follow up. - Time Spent with Patient Total time spent providing and/or coordinating discharge services: Greater than 30 minutes - Constitutional Vitals: Temp Pulse Resp BP Pulse Ox 97.9 F 86 18 126/77 94 05/23/17 06:45 05/23/17 06:45 05/23/17 06:45 05/23/17 06:45 05/23/17 09:25 General appearance: Present: cooperative, morbidly obese, pleasant, no acute distress - Head Head exam: Present: atraumatic, normocephalic - Eye Eye exam: Present: PERRL, conjuntiva pink, sclera anicteric - Neck Neck exam general surgery: Present: supple, trachea midline. Absent: lymphadenopathy - Respiratory Respiratory exam: Present: CTAB. Absent: accessory muscle use, rales, rhonchi, wheezes - Cardiovascular Cardiovascular exam: Present: RRR, +S1, +S2. Absent: diastolic murmur, gallop, rubs, systolic murmur - GI/Abdominal GI/Abdominal exam: Present: normal bowel sounds, soft, no peritoneal signs. Absent: distended, tenderness - Extremities Exam Extremities exam: Present: warm, radial pulses palpable and symmetrical. Absent : calf tenderness, cyanotic, pedal edema - Neurological Exam Neurological exam: Present: alert, no focal deficits. Absent: facial droop, speech deficit - Skin Skin exam: Present: dry, intact <Bhargav Farah - Last Filed: 05/23/17 16:32> Date of Encounter: 05/23/17 Date of admission: 05/22/17 20:16 Primary care physician: Carole Rice Consults: 05/23/17 00:05 Consult to Cardiology [CONS] Routine Comment: Consulting Provider: Cardiology Cassandra Reason for Consult: 66F with exertional chest pain relieved by nitro and rest , negative stress test in 07/2016. Risk factors include DM, obesity, HTN. Please evaluate need for LHC given concerning symptoms and risk factors Call Completed: No Hospital course: Ms. Campa is a 66 year old female - Time Spent with Patient Total time spent providing and/or coordinating discharge services: - Constitutional Vitals: Temp Pulse Resp BP Pulse Ox 97.9 F 86 18 126/77 94 05/23/17 06:45 05/23/17 06:45 05/23/17 07:48 05/23/17 06:45 05/23/17 09:25 - Attending Attestation I examined this patient and my medical decision-making was reviewed with the Resident Physician on 05/23/17. I agree with the documented findings, disposition and treatment plan as described except to the extent set forth below. Seen and evaluated at bedside 66 YO F with Morbid Obesity, OHS on chronic home O2, SILVIA on CPAP, CKD III DM, HTN, CAD She was admitted to observation for chest pain management From her description, her chest pain seems to be GERD and or stable angina Her work up so far is negative Stress test and ECHO 07/2016 unremarkable LHC in 2010 showed mild disease Per cardiology, she does not need any further intervention She is educated to take her PPIs at home, as prescribed Continue other home meds Follow up with PCP and Cardiology Rest of details as in resident physician's documentation
--- NOTE | 2017-05-23 20:24 | Electrocardiograph Report ---
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
== END 2017-05-23 12:10 | disposition home or self-care (01) ==
LOC: EMEROO 18:19 → 2ANU 18:19
PROVIDERS: ADMIT Internal Medicine; ATTEND Internal Medicine

== ENCOUNTER 2018-03-02 14:28 | Observation (INO) ==
--- NOTE | 2018-03-02 14:48 | Emergency Department Note ---
Disposition Clinical Impression: Chest pain Qualifiers: Chest pain type: unspecified Qualified Code(s): R07.9 - Chest pain, unspecified Disposition: Home, Self-Care Condition: Good General Adult HPI - General Chief complaint: ED Shortness of Breath/Dyspnea Stated complaint: SESAR Time Seen by Provider: 03/02/18 14:39 Source: patient Limitations: no limitations Nursing Notes Reviewed: Yes Vital Signs Reviewed: Yes - History of Present Illness HPI Narrative: Patient with history of diabetes, obesity, hypertension, hypercholesterolemia presents today for evaluation of chest pain, weakness, shortness of breath. Symptoms started several days ago. Patient has had associated nausea. She states that she just feels "unwell". Patient states that she has been having chest pain with exertion. Chest pain has been described as pressure in her chest associated with shortness of breath and diaphoresis. Patient's improved with rest. Patient has not glycerin at home which is also improved her symptoms. Patient took tonight glycerin yesterday and 1 today. The patient has significant emphysema as well. The patient's oxygen dependent on 2 L. Pain Scale: 0 - Related Data Home Medications Medication Instructions Recorded Confirmed Albuterol Neb [AccuNeb] 1.25 mg IH Q8H PRN 06/08/16 05/22/17 Albuterol Sulfate [Albuterol 2 puff IH Q4HR PRN 06/08/16 05/22/17 Inhaler] Allopurinol [Zyloprim 100 MG] 100 mg PO BID 06/08/16 05/22/17 Amitriptyline [Elavil] 50 mg PO HS 06/08/16 05/22/17 Aspirin 81 mg PO DAILY 06/08/16 05/22/17 Atorvastatin Calcium [Lipitor] 40 mg PO HS 06/08/16 05/22/17 Citalopram Hydrobromide [Celexa] 40 mg PO DAILY 06/08/16 05/22/17 HYDROcodone/Acet 5/325 mg [[place] 1 tab PO Q6H PRN 06/08/16 05/22/17 5-325 mg] Insulin Glargine,Hum.rec.anlog 100 unit SQ BID 06/08/16 05/22/17 [Lantus Solostar] Isosorbide MONOnitrate (24 HR) 60 mg PO DAILY 06/08/16 05/22/17 [Imdur] LORazepam [Ativan] 1 mg PO BID PRN 06/08/16 05/22/17 Magnesium Oxide [Magnesium] 1,200 mg PO BID 06/08/16 05/22/17 Nitroglycerin [Nitrostat] 0.4 mg SL Q5M PRN 06/08/16 05/22/17 Omeprazole [PriLOSEC] 40 mg PO DAILY PRN 06/08/16 05/22/17 Oxygen 2 l NS AD 06/08/16 05/22/17 Tiotropium [Spiriva] 18 mcg IH 0700 06/08/16 05/22/17 metFORMIN [Glucophage] 500 mg PO BIDWM 06/08/16 05/22/17 BuPROPion XL (24 HR) [Wellbutrin 150 mg PO DAILY 08/09/16 05/22/17 Xl] Insulin ASPART [NovoLOG] 14 unit SQ TIDAC 05/22/17 05/22/17 Multivitamin [Multi-Day Vitamins] 1 each PO DAILY 05/22/17 05/22/17 Previous Rx's Medication Instructions Recorded Omeprazole [PriLOSEC] 40 mg PO DAILY #30 cap 05/23/17 Allergies Allergy/AdvReac Type Severity Reaction Status Date / Time indomethacin [From Indocin] AdvReac See Verified 08/09/16 19:54 Comments sulfamethoxazole AdvReac Gastrointestinal Verified 08/09/16 19:54 [From Bactrim] Upset trimethoprim [From Bactrim] AdvReac Gastrointestinal Verified 08/09/16 19:54 Upset Review of Systems: CONSTITUTIONAL: Weakness and fatigue and diaphoresis No weight loss, fever, chills HEENT: Eyes: No visual changes. Ears, Nose, Throat: No hearing loss, difficulty talking or unable to swallow. SKIN: No rash or itching. CARDIOVASCULAR: Chest pain RESPIRATORY: Shortness of breath GASTROINTESTINAL: Nausea No anorexia,vomiting or diarrhea. No abdominal pain or blood. GENITOURINARY: No burning on urination or hematuria. NEUROLOGICAL: No headache, dizziness, syncope, paralysis, ataxia, numbness or tingling in the extremities. No change in bowel or bladder control. MUSCULOSKELETAL: No muscle pain, back pain, joint pain or stiffness. 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 - Social History Smoking Status: Former smoker Smokeless Tobacco Status: No Alcohol use: Reports: none Drug use: Reports: none Physical Exam General: Exertional dyspnea trying to get into the bed Head: Normocephalic Atraumatic Eyes: PERRL, EOMI ENT: Airway patent, no stridor Neck: supple, no meningismus Chest: Mild wheezing bilaterally Cardiac: Regular rhythm Abdomen: soft, nontender, nondistended; no guarding, rebound, or tenderness to percussion Musculoskeletal: Calves symmetric, nontender, no palpable cord Skin: No rash, normal skin tone Neuro: Alert and Oriented to person, place, and time; - General Limitations: no limitations General appearance: alert, in no apparent distress Course - Reevaluation(s) Reevaluation #1: Discussed the patient her chest pain with exertion better with nitro will need for further cardiac workup. Patient states that she has a graduation to be at for her [employer] tomorrow; she understands the need for further investigation. She agrees to stay at this time. Patient also states that she has a trip to go to on Sunday. - Consultations Consultation #1: Discussed with hospitalist. Patient accepted for admission. Vital Signs Temperature 97.7 F 03/02/18 14:35 Pulse Rate 105 03/02/18 14:35 Respiratory Rate 22 03/02/18 14:35 Blood Pressure 163/82 03/02/18 14:35 O2 Sat by Pulse Oximetry 97 03/02/18 14:35 Temperature 97.7 F 03/02/18 14:35 Pulse Rate 98 03/02/18 15:29 Respiratory Rate 16 03/02/18 15:29 Blood Pressure 170/84 03/02/18 15:29 O2 Sat by Pulse Oximetry 97 03/02/18 15:29 Oxygen Delivery Oxygen Delivery Nasal Cannula Medical Decision Making - Medical Records Medical records reviewed: Yes I reviewed the patient's medical records. - Lab Data Lab results reviewed: Yes I reviewed the patient's lab results. Result diagrams: 03/02/18 14:50 03/02/18 14:50 Lab Results 05/19/18 05/19/18 05/19/18 Range/Units 14:38 14:50 14:50 WBC 7.2 (4.3-11.1) K/mcL RBC 3.45 L (3.82-4.97) M/mcL Hgb 10.8 L (11.5-15.4) g/dL Hct 32.8 L (35.3-44.9) % MCV 95.1 (83.0-100.0) fL MCH 31.3 (28.0-33.3) pg MCHC 32.9 (31.6-35.5) g/dL RDW 14.9 H (11.5-14.5) % Plt Count 190 (140-400) K/mcL MPV 9.4 (9.4-12.4) fL Immature Gran % 1.0 (0-4) % Seg Neutrophils % 76.4 % Lymphocytes % 15.4 % Monocytes % 5.4 % Eosinophils % 1.4 % Basophils % 0.4 % Neutrophils # 5.5 (1.6-8.9) K/mcL Lymphocytes # 1.1 (0.6-4.6) K/mcL Monocytes # 0.4 (0.0-1.3) K/mcL Eosinophils # 0.1 (0.0-0.6) K/mcL Basophils # 0.0 (0.0-0.2) K/mcL Nucleated RBCs/100 WBC 0.4 H (0) /100 WBC Platelet Estimate Normal (Normal) Immature Plt Fraction 2.4 (1.1-6.1) % PT (9.4-12.1) Seconds INR APTT (26.0-36.0) Seconds Sodium 139 (136-145) mEq/L Potassium 4.0 (3.5-5.1) mEq/L Chloride 101 (98-107) mEq/L Carbon Dioxide 29 (23-29) mEq/L BUN 20 (8-23) mg/dL Creatinine 1.09 (0.60-1.20) mg/dL Est GFR ( Amer) > 60 (> 60) Est GFR (Non-Af Amer) 50 L (> 60) BUN/Creatinine Ratio 18 (6-26) Glucose 151 H (70-105) mg/dL POC Glucose 145 H (70-99) mg/dL Calculated Osmolality 294 (280-300) Calcium 9.6 (8.6-10.3) mg/dL Troponin I < 0.03 (< 0.04) ng/mL B-Natriuretic Peptide (Less than 100) pg/mL Urine Color (Yellow) Urine Clarity (Clear) Urine pH (5.0-8.0) pH Units Ur Specific [place] (1.010-1.025) Urine Protein (Neg-Trace) mg/dL Urine Glucose (UA) (Normal) mg/dL Urine Ketones (Negative) mg/dL Urine Blood (Negative) Urine Nitrite (Negative) Urine Bilirubin (Negative) Urine Urobilinogen (Normal) mg/dL Ur Leukocyte Esterase (Negative) Urine Microscopic RBC (0-3) per hpf Urine Microscopic WBC (0-3) per hpf Ur Squamous Epith Cells (None-Few) per lpf Urine Bacteria (None-Few) per hpf Hyaline Casts (None-Few) per lpf Ur Culture Indicated? (NO) 03/02/18 03/02/18 03/02/18 Range/Units 14:50 14:50 15:36 WBC (4.3-11.1) K/mcL RBC (3.82-4.97) M/mcL Hgb (11.5-15.4) g/dL Hct (35.3-44.9) % MCV (83.0-100.0) fL MCH (28.0-33.3) pg MCHC (31.6-35.5) g/dL RDW (11.5-14.5) % Plt Count (140-400) K/mcL MPV (9.4-12.4) fL Immature Gran % (0-4) % Seg Neutrophils % % Lymphocytes % % Monocytes % % Eosinophils % % Basophils % % Neutrophils # (1.6-8.9) K/mcL Lymphocytes # (0.6-4.6) K/mcL Monocytes # (0.0-1.3) K/mcL Eosinophils # (0.0-0.6) K/mcL Basophils # (0.0-0.2) K/mcL Nucleated RBCs/100 WBC (0) /100 WBC Platelet Estimate (Normal) Immature Plt Fraction (1.1-6.1) % PT 11.9 (9.4-12.1) Seconds INR 1.1 APTT 32.6 (26.0-36.0) Seconds Sodium (136-145) mEq/L Potassium (3.5-5.1) mEq/L Chloride (98-107) mEq/L Carbon Dioxide (23-29) mEq/L BUN (8-23) mg/dL Creatinine (0.60-1.20) mg/dL Est GFR ( Amer) (> 60) Est GFR (Non-Af Amer) (> 60) BUN/Creatinine Ratio (6-26) Glucose (70-105) mg/dL POC Glucose (70-99) mg/dL Calculated Osmolality (280-300) Calcium (8.6-10.3) mg/dL Troponin I (< 0.04) ng/mL B-Natriuretic Peptide 19 (Less than 100) pg/mL Urine Color Yellow (Yellow) Urine Clarity Clear (Clear) Urine pH 5.5 (5.0-8.0) pH Units Ur Specific [place] 1.024 (1.010-1.025) Urine Protein 30 H (Neg-Trace) mg/dL Urine Glucose (UA) Normal (Normal) mg/dL Urine Ketones Negative (Negative) mg/dL Urine Blood Negative (Negative) Urine Nitrite Negative (Negative) Urine Bilirubin Negative (Negative) Urine Urobilinogen Normal (Normal) mg/dL Ur Leukocyte Esterase Small H (Negative) Urine Microscopic RBC 0-3 (0-3) per hpf Urine Microscopic WBC 5-15 H (0-3) per hpf Ur Squamous Epith Cells Many H (None-Few) per lpf Urine Bacteria Few (None-Few) per hpf Hyaline Casts None Seen (None-Few) per lpf Ur Culture Indicated? NO. A (NO) - Radiology Data Radiology results reviewed: Yes I reviewed the patient's radiology results. - EKG Data EKG #1 EKG attestation: Yes I reviewed and interpreted this EKG. EKG results narrative: EKG shows sinus tachycardia with ventricular rate of 102. CO 144. QRS 86. QTC 380. Patient has no significant ST elevations or depressions. No previous EKG for comparison.
[2018-03-02 15:00] LABS: Basophils % 0.4 %; Eosinophils # 0.1 K/mcL (0.0-0.6); Eosinophils % 1.4 %; Hematocrit 32.8 % (35.3-44.9); Hemoglobin 10.8 g/dL (11.5-15.4); Lymphocytes # 1.1 K/mcL (0.6-4.6); Lymphocytes % 15.4 %; Mean Corpuscular HGB Conc 32.9 g/dL (31.6-35.5); Mean Corpuscular Hemoglobin 31.3 pg (28.0-33.3); Mean Corpuscular Volume 95.1 fL (83.0-100.0); Mean Platelet Volume 9.4 fL (9.4-12.4); Monocytes # 0.4 K/mcL (0.0-1.3); Monocytes % 5.4 %; Neutrophils # 5.5 K/mcL (1.6-8.9); Nucleated Red Blood Cells 0.4 /100 WBC (0); Platelet Count 190 K/mcL (140-400); Red Blood Count 3.45 M/mcL (3.82-4.97); Red Cell Distribution Width 14.9 % (11.5-14.5); Segmented Neutrophils % 76.4 %
[2018-03-02 15:06] LABS: INR 1.1; Prothrombin Time 11.9 Seconds (9.4-12.1)
[2018-03-02 15:09] LABS: Activated Partial Thrombo Time 32.6 Seconds (26.0-36.0)
[2018-03-02 15:18] LABS: Immature Platelets 2.4 % (1.1-6.1)
[2018-03-02 15:21] LABS: Platelet Estimate Normal (Normal)
[2018-03-02 15:23] LABS: BUN/Creatinine Ratio 18 (6-26); Blood Urea Nitrogen 20 mg/dL (8-23); Calcium 9.6 mg/dL (8.6-10.3); Carbon Dioxide 29 mEq/L (23-29); Chloride 101 mEq/L (98-107); Glucose 151 mg/dL (70-105); Osmolality,Calculated 294 (280-300); Sodium 139 mEq/L (136-145); eGFR For African Americans > 60 (> 60); eGFR For Non-African Americans 50 (> 60)
[2018-03-02 15:25] LABS: Troponin I < 0.03 ng/mL (< 0.04)
[2018-03-02 15:42] LABS: Bilirubin,Urine Negative (Negative); Blood,Urine Negative (Negative); Clarity,Urine Clear (Clear); Color,Urine Yellow (Yellow); Glucose,Urine (UA) Normal (Normal); Ketones,Urine Negative (Negative); Leukocyte Esterase,Urine Small (Negative); Nitrite,Urine Negative (Negative); PH,Urine 5.5 pH Units (5.0-8.0); Protein,Urine 30 mg/dL (Neg-Trace); Specific Gravity,Urine 1.024 (1.010-1.025); Urobilinogen,Urine Normal (Normal)
[2018-03-02 15:43] LABS: Bacteria,Urine Few per hpf (None-Few); Hyaline Casts,Urine None Seen per lpf (None-Few); RBC,Urine 0-3 per hpf (0-3); Squamous Epithelial Cell,Urine Many per lpf (None-Few)
--- NOTE | 2018-03-02 15:46 | Emergency Department Note ---
Disposition Clinical Impression: Chest pain Disposition: Home, Self-Care Condition: Good General Adult HPI - General Chief complaint: ED Shortness of Breath/Dyspnea Stated complaint: SESAR Time Seen by Provider: 03/02/18 14:39 Source: patient Limitations: no limitations - History of Present Illness Pain Scale: 0 - Related Data Home Medications Medication Instructions Recorded Confirmed Albuterol Neb [AccuNeb] 1.25 mg IH Q8H PRN 06/08/16 05/22/17 Albuterol Sulfate [Albuterol 2 puff IH Q4HR PRN 06/08/16 05/22/17 Inhaler] Allopurinol [Zyloprim 100 MG] 100 mg PO BID 06/08/16 05/22/17 Amitriptyline [Elavil] 50 mg PO HS 06/08/16 05/22/17 Aspirin 81 mg PO DAILY 06/08/16 05/22/17 Atorvastatin Calcium [Lipitor] 40 mg PO HS 06/08/16 05/22/17 Citalopram Hydrobromide [Celexa] 40 mg PO DAILY 06/08/16 05/22/17 HYDROcodone/Acet 5/325 mg [[place] 1 tab PO Q6H PRN 06/08/16 05/22/17 5-325 mg] Insulin Glargine,Hum.rec.anlog 100 unit SQ BID 06/08/16 05/22/17 [Lantus Solostar] Isosorbide MONOnitrate (24 HR) 60 mg PO DAILY 06/08/16 05/22/17 [Imdur] LORazepam [Ativan] 1 mg PO BID PRN 06/08/16 05/22/17 Magnesium Oxide [Magnesium] 1,200 mg PO BID 06/08/16 05/22/17 Nitroglycerin [Nitrostat] 0.4 mg SL Q5M PRN 06/08/16 05/22/17 Omeprazole [PriLOSEC] 40 mg PO DAILY PRN 06/08/16 05/22/17 Oxygen 2 l NS AD 06/08/16 05/22/17 Tiotropium [Spiriva] 18 mcg IH 0700 06/08/16 05/22/17 metFORMIN [Glucophage] 500 mg PO BIDWM 06/08/16 05/22/17 BuPROPion XL (24 HR) [Wellbutrin 150 mg PO DAILY 08/09/16 05/22/17 Xl] Insulin ASPART [NovoLOG] 14 unit SQ TIDAC 05/22/17 05/22/17 Multivitamin [Multi-Day Vitamins] 1 each PO DAILY 05/22/17 05/22/17 Previous Rx's Medication Instructions Recorded Omeprazole [PriLOSEC] 40 mg PO DAILY #30 cap 05/23/17 Allergies Allergy/AdvReac Type Severity Reaction Status Date / Time indomethacin [From Indocin] AdvReac See Verified 08/09/16 19:54 Comments sulfamethoxazole AdvReac Gastrointestinal Verified 08/09/16 19:54 [From Bactrim] Upset trimethoprim [From Bactrim] AdvReac Gastrointestinal Verified 08/09/16 19:54 Upset Past Medical History - Past Medical History Medical history: Reports: CHF, COPD, coronary artery disease, diabetes, hyperlipidemia, hypertension, renal disease Surgical history: Reports: appendectomy, cholecystectomy, hysterectomy, knee replacement Psychiatric history: Reports: anxiety, depression 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 - Social History Smoking Status: Former smoker Smokeless Tobacco Status: No Alcohol use: Reports: none Drug use: Reports: none Physical Exam - General Limitations: no limitations General appearance: alert, in no apparent distress Course Vital Signs Temperature 97.7 F 03/02/18 14:35 Pulse Rate 105 03/02/18 14:35 Respiratory Rate 22 03/02/18 14:35 Blood Pressure 163/82 03/02/18 14:35 O2 Sat by Pulse Oximetry 97 03/02/18 14:35 Temperature 97.7 F 03/02/18 14:35 Pulse Rate 98 03/02/18 15:29 Respiratory Rate 16 03/02/18 15:29 Blood Pressure 170/84 03/02/18 15:29 O2 Sat by Pulse Oximetry 97 03/02/18 15:29 Oxygen Delivery Oxygen Delivery Nasal Cannula Medical Decision Making - Lab Data Result diagrams: 03/02/18 14:50 03/02/18 14:50 Lab Results 03/02/18 03/02/18 03/02/18 Range/Units 14:38 14:50 14:50 WBC 7.2 (4.3-11.1) K/mcL RBC 3.45 L (3.82-4.97) M/mcL Hgb 10.8 L (11.5-15.4) g/dL Hct 32.8 L (35.3-44.9) % MCV 95.1 (83.0-100.0) fL MCH 31.3 (28.0-33.3) pg MCHC 32.9 (31.6-35.5) g/dL RDW 14.9 H (11.5-14.5) % Plt Count 190 (140-400) K/mcL MPV 9.4 (9.4-12.4) fL Immature Gran % 1.0 (0-4) % Seg Neutrophils % 76.4 % Lymphocytes % 15.4 % Monocytes % 5.4 % Eosinophils % 1.4 % Basophils % 0.4 % Neutrophils # 5.5 (1.6-8.9) K/mcL Lymphocytes # 1.1 (0.6-4.6) K/mcL Monocytes # 0.4 (0.0-1.3) K/mcL Eosinophils # 0.1 (0.0-0.6) K/mcL Basophils # 0.0 (0.0-0.2) K/mcL Nucleated RBCs/100 WBC 0.4 H (0) /100 WBC Platelet Estimate Normal (Normal) Immature Plt Fraction 2.4 (1.1-6.1) % PT (9.4-12.1) Seconds INR APTT (26.0-36.0) Seconds Sodium 139 (136-145) mEq/L Potassium 4.0 (3.5-5.1) mEq/L Chloride 101 (98-107) mEq/L Carbon Dioxide 29 (23-29) mEq/L BUN 20 (8-23) mg/dL Creatinine 1.09 (0.60-1.20) mg/dL Est GFR ( Amer) > 60 (> 60) Est GFR (Non-Af Amer) 50 L (> 60) BUN/Creatinine Ratio 18 (6-26) Glucose 151 H (70-105) mg/dL POC Glucose 145 H (70-99) mg/dL Calculated Osmolality 294 (280-300) Calcium 9.6 (8.6-10.3) mg/dL Troponin I < 0.03 (< 0.04) ng/mL B-Natriuretic Peptide (Less than 100) pg/mL Urine Color (Yellow) Urine Clarity (Clear) Urine pH (5.0-8.0) pH Units Ur Specific [place] (1.010-1.025) Urine Protein (Neg-Trace) mg/dL Urine Glucose (UA) (Normal) mg/dL Urine Ketones (Negative) mg/dL Urine Blood (Negative) Urine Nitrite (Negative) Urine Bilirubin (Negative) Urine Urobilinogen (Normal) mg/dL Ur Leukocyte Esterase (Negative) Urine Microscopic RBC (0-3) per hpf Urine Microscopic WBC (0-3) per hpf Ur Squamous Epith Cells (None-Few) per lpf Urine Bacteria (None-Few) per hpf Hyaline Casts (None-Few) per lpf Ur Culture Indicated? (NO) 03/02/18 03/02/18 03/02/18 Range/Units 14:50 14:50 15:36 WBC (4.3-11.1) K/mcL RBC (3.82-4.97) M/mcL Hgb (11.5-15.4) g/dL Hct (35.3-44.9) % MCV (83.0-100.0) fL MCH (28.0-33.3) pg MCHC (31.6-35.5) g/dL RDW (11.5-14.5) % Plt Count (140-400) K/mcL MPV (9.4-12.4) fL Immature Gran % (0-4) % Seg Neutrophils % % Lymphocytes % % Monocytes % % Eosinophils % % Basophils % % Neutrophils # (1.6-8.9) K/mcL Lymphocytes # (0.6-4.6) K/mcL Monocytes # (0.0-1.3) K/mcL Eosinophils # (0.0-0.6) K/mcL Basophils # (0.0-0.2) K/mcL Nucleated RBCs/100 WBC (0) /100 WBC Platelet Estimate (Normal) Immature Plt Fraction (1.1-6.1) % PT 11.9 (9.4-12.1) Seconds INR 1.1 APTT 32.6 (26.0-36.0) Seconds Sodium (136-145) mEq/L Potassium (3.5-5.1) mEq/L Chloride (98-107) mEq/L Carbon Dioxide (23-29) mEq/L BUN (8-23) mg/dL Creatinine (0.60-1.20) mg/dL Est GFR ( Amer) (> 60) Est GFR (Non-Af Amer) (> 60) BUN/Creatinine Ratio (6-26) Glucose (70-105) mg/dL POC Glucose (70-99) mg/dL Calculated Osmolality (280-300) Calcium (8.6-10.3) mg/dL Troponin I (< 0.04) ng/mL B-Natriuretic Peptide 19 (Less than 100) pg/mL Urine Color Yellow (Yellow) Urine Clarity Clear (Clear) Urine pH 5.5 (5.0-8.0) pH Units Ur Specific [place] 1.024 (1.010-1.025) Urine Protein 30 H (Neg-Trace) mg/dL Urine Glucose (UA) Normal (Normal) mg/dL Urine Ketones Negative (Negative) mg/dL Urine Blood Negative (Negative) Urine Nitrite Negative (Negative) Urine Bilirubin Negative (Negative) Urine Urobilinogen Normal (Normal) mg/dL Ur Leukocyte Esterase Small H (Negative) Urine Microscopic RBC 0-3 (0-3) per hpf Urine Microscopic WBC 5-15 H (0-3) per hpf Ur Squamous Epith Cells Many H (None-Few) per lpf Urine Bacteria Few (None-Few) per hpf Hyaline Casts None Seen (None-Few) per lpf Ur Culture Indicated? NO. A (NO) Attestation Statement - Attestation Attestation: I examined this patient and my medical decision-making was reviewed with the Resident Physician. I agree with the documented findings, disposition and treatment plan as described except to the extent set forth below. Patient to the ED with chief complaint of shortness of breath. Chest pressure. Has not felt well for a couple of days. She describes it as discomfort. No fever. Patient states she took 2 nitroglycerin yesterday and took one today that is resolved her chest pressure. She is in no distress on examination. Her lung sounds are diminished. Heart regular. Plan. Cardiac workup. Concerning history with exertional dyspnea and chest pain that resolved with nitroglycerin. We will admit. Workup unremarkable. Patient admitted to medicine. Chest X-Ray 03/02/18 14:42 IMPRESSION: No acute process. D/ / Bernardo Yeung MD / Bernardo Yeung MD Interpreting Provider: Bernardo Yeung MD
[2018-03-02] MEDS ORDERED: Aspirin 81 MG TAB.CHEW PO ONE (15:59)
--- NOTE | 2018-03-02 17:36 | Internal Med History&Physical ---
Date of Encounter: 03/02/18 Time of Encounter: 17:36 Internal Medicine - H&P: HPI Chief complaint: CP History of present illness: Ms. Campa is a 67 year old female with PMH DM, morbid obesity, COPD and hyperlipidemia who presented with two days history of chief complaint of shortness of breath, Chest pain, pressure in character the resolved with nitroglycerin. ECG revealed no significant abnormalities and first set of cardiac enzymes were normal. The patient was admitted to R/O ACS. Past Med Surg Social Fam HX - Past Medical History Medical history: CHF, COPD, coronary artery disease, diabetes, hyperlipidemia, hypertension, renal disease Psychiatric history: anxiety, depression - Past Surgical History Surgical History: appendectomy, cholecystectomy, hysterectomy, knee replacement - Social History Smoking Status: Former smoker Smokeless Tobacco Status: No Alcohol use: none Drug use: none - Family History Mother Living Status: Still Living Hx Family Cardiac Disorders: Yes Father Living Status: Hx Family Cancer: Yes Daughter Hx Family Cancer: Yes (unknown what kind) Internal Medicine - H&P: Meds Albuterol Neb [AccuNeb] 1.25 mg IH Q8H PRN 06/08/16 [History] Albuterol Sulfate [Albuterol Inhaler] 2 puff IH Q4HR PRN 06/08/16 [History] Allopurinol [Zyloprim 100 MG] 200 mg PO DAILY 06/08/16 [History] Amitriptyline [Elavil] 50 mg PO HS 06/08/16 [History] Aspirin 81 mg PO DAILY 06/08/16 [History] Atorvastatin Calcium [Lipitor] 40 mg PO HS 06/08/16 [History] HYDROcodone/Acet 5/325 mg [[place] 5-325 mg] 1 tab PO Q6H PRN 06/08/16 [History] Insulin Glargine,Hum.rec.anlog [Lantus Solostar] 90 unit SQ BID 06/08/16 [ History] Isosorbide MONOnitrate (24 HR) [Imdur] 60 mg PO DAILY 06/08/16 [History] LORazepam [Ativan] 1 mg PO BID PRN 06/08/16 [History] Magnesium Oxide [Magnesium] 400 mg PO DAILY 06/08/16 [History] Nitroglycerin [Nitrostat] 0.4 mg SL Q5M PRN 06/08/16 [History] Oxygen 2 l NS AD 06/08/16 [History] Tiotropium [Spiriva] 18 mcg IH 0700 06/08/16 [History] metFORMIN [Glucophage] 500 mg PO BIDWM 06/08/16 [History] Multivitamin [Multi-Day Vitamins] 1 each PO DAILY 05/22/17 [History] Omeprazole [PriLOSEC] 40 mg PO DAILY #30 cap 05/23/17 [Rx] Duloxetine HCl [Cymbalta] 60 mg PO DAILY 03/02/18 [History] Ramelteon [Rozerem] 8 mg PO HS 03/03/18 [History] Metoprolol [Lopressor] 25 mg PO BID #60 tablet 03/05/18 [Rx] 3 Allergy/AdvReac Type Severity Reaction Status Date / Time indomethacin [From Indocin] AdvReac See Verified 08/09/16 19:54 Comments sulfamethoxazole AdvReac Gastrointestinal Verified 08/09/16 19:54 [From Bactrim] Upset trimethoprim [From Bactrim] AdvReac Gastrointestinal Verified 08/09/16 19:54 Upset All Systems PM: A 10-system review of systems was performed and is negative for pertinent findings except as documented above in the HPI. - Constitutional Constitutional: no chills, no fever(s), no night sweats - Cardiovascular Cardiovascular ROS IM: chest pain, no diaphoresis, no dyspnea, no lightheadedness, no palpitations, no syncope - Respiratory Respiratory: no cough, no dyspnea, no wheezing, no excessive phlegm production - Constitutional Vitals: Temp Pulse Resp BP Pulse Ox 97.7 F 98 16 170/84 97 03/02/18 14:35 03/02/18 15:29 03/02/18 15:29 03/02/18 15:29 03/02/18 15:29 General appearance: Present: A&O X 3 - Head Head exam: Present: atraumatic, normocephalic - Neck Neck exam general surgery: Present: supple, trachea midline. Absent: lymphadenopathy - Respiratory Respiratory exam: Present: CTAB. Absent: accessory muscle use, rales, rhonchi, wheezes - Cardiovascular Cardiovascular exam: Present: RRR, +S1, +S2. Absent: diastolic murmur, gallop, rubs, systolic murmur - GI/Abdominal GI/Abdominal exam: Present: normal bowel sounds, soft, no peritoneal signs. Absent: distended, tenderness - Extremities Exam Extremities exam: Present: warm, radial pulses palpable and symmetrical. Absent : calf tenderness, cyanotic, pedal edema Internal Med - H&P Results - Labs CBC & Chem 7: 03/03/18 02:45 03/03/18 02:45 - Assessment and plan (1) Chest pain Status: Acute Assessment and plan: ASSESSMENT: - Chest pain DD *CAD *Muskuloskeletal CP - myofascial strain, costochondritis *GERD *Esophageal spasm *Pericarditis - unlikely *Pneumonia - no infiltrate on CXR PLAN: - cardiac enzymes x 2 q 8 hr - EKG now and in AM - ASA - O2 by NC to keep SpO2 greater than 92% - UA - CBCD, BMP in AM - Fasting lipids - Tylenol 650 mg PO q 4-6 hr PRN headache - Home meds (check list) - Heparin 5000 U SQ BID - 2D Echo - Cardiology consult Qualifiers: Chest pain type: unspecified Qualified Code(s): R07.9 - Chest pain, unspecified (2) Type 2 diabetes mellitus Status: Chronic Qualifiers: Diabetes mellitus ferry terminal agent insulin use: with ferry terminal agent use Diabetes mellitus complication status: with unspecified complications Qualified Code(s) : E11.8 - Type 2 diabetes mellitus with unspecified complications; Z79.4 - exterminator (current) use of insulin (3) Hypertension Status: Chronic Assessment and plan: We will cont homs meds, starting insulin sliding scale Qualifiers: Hypertension type: essential hypertension Qualified Code(s): I10 - Essential (primary) hypertension (4) COPD (chronic obstructive pulmonary disease) Status: Chronic Assessment and plan: We will cont home meds, no evidence of exacerbation Qualifiers: COPD type: unspecified COPD Qualified Code(s): J44.9 - Chronic obstructive pulmonary disease, unspecified (5) SILVIA (obstructive sleep apnea) Status: Chronic Assessment and plan: We will con home O2 , the patient on BIPAP at night. (6) CKD (chronic kidney disease) Status: Chronic Assessment and plan: Cr is at baseline, we will obtain PCR given h/o DM, cont to monitor renal panel while inpatient. Qualifiers: Chronic kidney disease stage: stage 2 (mild) Qualified Code(s): N18.2 - Chronic kidney disease, stage 2 (mild) (7) Morbid obesity Status: Acute (8) Gout Status: Acute Assessment and plan: We will cont. home meds. Qualifiers: Gout site: unspecified site Gout etiology: unspecified cause Chronicity: chronic Presence of tophus: without tophus Qualified Code(s): M1A.9XX0 - Chronic gout, unspecified, without tophus (tophi) (9) DVT prophylaxis Status: Acute Assessment and plan: We will start the patient on sc heparin - Time Spent With Patient Total time spent is greater than 50% in coordination of care (as documented) at patient's floor/unit and/or counseling patient:
[2018-03-02] MEDS ORDERED: Naloxone 0.4 MG/ML INJ IVP PRN (20:11)
[2018-03-02] MEDS ORDERED: Nitroglycerin 0.4 MG TAB.SUBL SL PRN (22:37)
[2018-03-02] MEDS ORDERED: Albuterol Neb 1.25 MG/3 ML VIAL IH PRN (22:37)
[2018-03-02] MEDS ORDERED: *HR* HYDROcodone/Acet 5/325 mg TABLET PO PRN (22:37)
[2018-03-02] MEDS ORDERED: NON-FORMULARY MEDICATION 1 EACH EACH (Oxygen [Oxygen] 2 L) NS SCH (22:45)
[2018-03-02 22:47] LABS: Bilirubin,Urine Negative (Negative); Blood,Urine Negative (Negative); Clarity,Urine Clear (Clear); Color,Urine Yellow (Yellow); Glucose,Urine (UA) Normal (Normal); Ketones,Urine Negative (Negative); Leukocyte Esterase,Urine Small (Negative); Nitrite,Urine Negative (Negative); Protein,Urine Trace mg/dL (Neg-Trace); Specific Gravity,Urine 1.021 (1.010-1.025); Urobilinogen,Urine Normal (Normal)
[2018-03-02 22:50] LABS: Bacteria,Urine Few per hpf (None-Few); Hyaline Casts,Urine None Seen per lpf (None-Few); Squamous Epithelial Cell,Urine Many per lpf (None-Few)
[2018-03-02 23:00] LABS: Mucus,Urine Few (Few)
[2018-03-02 23:01] LABS: RBC,Urine 0-3 per hpf (0-3)
[2018-03-03] MEDS ORDERED: D5% in Water 1,000 ML IVC PRN (01:36)
[2018-03-03] MEDS ORDERED: *HR* Dextrose 50 % in Water (Syg) 50 ML SYRINGE IVP PRN (01:36)
[2018-03-03] MEDS ORDERED: Dextrose Gel 15 GM/37.5 ML TUBE PO PRN ×2 (01:36)
[2018-03-03] MEDS: Acetaminophen 325 MG TABLET PO PRN ×2 (01:37→17:09)
[2018-03-03 03:49] LABS: INR 1.1; Prothrombin Time 12.2 Seconds (9.4-12.1)
[2018-03-03 03:52] LABS: Activated Partial Thrombo Time 30.7 Seconds (26.0-36.0)
[2018-03-03 03:54] LABS: Basophils % 0.3 %; Eosinophils # 0.1 K/mcL (0.0-0.6); Eosinophils % 1.4 %; Hematocrit 30.5 % (35.3-44.9); Hemoglobin 10.2 g/dL (11.5-15.4); Lymphocytes # 1.2 K/mcL (0.6-4.6); Lymphocytes % 17.1 %; Mean Corpuscular HGB Conc 33.4 g/dL (31.6-35.5); Mean Corpuscular Hemoglobin 31.9 pg (28.0-33.3); Mean Corpuscular Volume 95.3 fL (83.0-100.0); Mean Platelet Volume 10.3 fL (9.4-12.4); Monocytes # 0.5 K/mcL (0.0-1.3); Monocytes % 6.6 %; Neutrophils # 5.3 K/mcL (1.6-8.9); Platelet Count 185 K/mcL (140-400); Red Cell Distribution Width 15.1 % (11.5-14.5); Segmented Neutrophils % 73.6 %
[2018-03-03 04:07] LABS: Albumin 3.7 g/dL (3.5-5.7); Albumin/Globulin Ratio 1.1 (1.1-2.2); Bilirubin,Total 0.5 mg/dL (0.3-1.0); Calcium 9.1 mg/dL (8.6-10.3); Chol/HDL Ratio 3.7 (0-4.9); Globulin 3.3 g/dL (2.4-3.5); Magnesium 1.6 mg/dL (1.6-2.6); Phosphorous 4.2 mg/dL (2.7-4.5); Potassium 3.9 mEq/L (3.5-5.1)
[2018-03-03 04:11] LABS: Platelet Estimate Normal (Normal)
[2018-03-03] MEDS: *HR* Heparin 5,000 UNIT/ML VIAL SQ SCH ×2 (05:43→17:06)
[2018-03-03 06:06] LABS: Creatinine,Urine 144 mg/dL
[2018-03-03] MEDS ORDERED: NON-FORMULARY MEDICATION 1 EACH EACH (Insulin Aspart 10 UNIT) SQ SCH (07:30)
[2018-03-03] MEDS ORDERED: *HR* Metformin 500 MG TABLET PO SCH (08:00)
[2018-03-03] MEDS: Insulin LISPRO 300 UNITS/3 ML VIAL SQ SCH ×4 (08:28→20:27)
[2018-03-03] MEDS: Magnesium Oxide 400 MG TABLET PO SCH ×2 (08:34→20:21)
[2018-03-03] MEDS: Aspirin 81 MG TAB.CHEW PO SCH (08:34)
[2018-03-03] MEDS: Isosorbide MONOnitrate (24 HR) 60 MG TAB.ER.24H PO SCH (08:34)
[2018-03-03] MEDS: Multivit/Ca/Min/Fe/FA 1 TAB TABLET PO SCH (08:34)
[2018-03-03] MEDS: Insulin DETEMIR 100 UNIT/ML X5UNITS SQ SCH ×2 (08:35→20:28)
[2018-03-03] MEDS ORDERED: Insulin DETEMIR 100 UNIT/ML X5UNITS SQ SCH (09:00)
[2018-03-03] MEDS ORDERED: Aspirin 81 MG TAB.CHEW PO SCH (09:00)
[2018-03-03] MEDS: Tiotropium 18 MCG inhalation IH SCH (10:27)
[2018-03-03] MEDS: *HR* HYDROcodone/Acet 5/325 mg TABLET PO PRN (11:12)
--- NOTE | 2018-03-03 15:13 | Internal Med Progress Note ---
Date of Encounter: 03/03/18 Time of Encounter: 15:00 - Assessment and plan (1) Chest pain Current Visit: Yes Status: Acute Assessment and plan: So far negative troponin x 3 No acute ischemic changes noticed on EKG 2 D Echo - P Since pt is high risk fro ACS will get a stress test in AM Reviewed her previous stress test from 2016 Qualifiers: Chest pain type: unspecified Qualified Code(s): R07.9 - Chest pain, unspecified (2) Hypertension Current Visit: No Status: Chronic Assessment and plan: Resumed home med Imdur Also will start her on low dose Metoprolol 25 BID Qualifiers: Hypertension type: essential hypertension Qualified Code(s): I10 - Essential (primary) hypertension (3) COPD (chronic obstructive pulmonary disease) Current Visit: No Status: Chronic Assessment and plan: Not in exacerbation Cont home regimen INH Qualifiers: COPD type: unspecified COPD Qualified Code(s): J44.9 - Chronic obstructive pulmonary disease, unspecified (4) SILVIA (obstructive sleep apnea) Current Visit: No Status: Chronic Assessment and plan: We will con home O2 , the patient does use BIPAP at night. (5) DVT prophylaxis Current Visit: No Status: Acute Assessment and plan: On SQ heparin (6) Type 2 diabetes mellitus Current Visit: No Status: Chronic Qualifiers: Diabetes mellitus halfway insulin use: with terminal gauger use Diabetes mellitus complication status: with unspecified complications Qualified Code(s) : E11.8 - Type 2 diabetes mellitus with unspecified complications; Z79.4 - computer terminal operator (current) use of insulin (7) CKD (chronic kidney disease) Current Visit: No Status: Chronic Assessment and plan: Cr is at baseline - seems to be CKD2-3 Qualifiers: Chronic kidney disease stage: stage 2 (mild) Qualified Code(s): N18.2 - Chronic kidney disease, stage 2 (mild) (8) Morbid obesity Current Visit: No Status: Acute Assessment and plan: counseled to loose weight (9) Gout Current Visit: Yes Status: Acute Assessment and plan: Resumed home meds. Qualifiers: Gout site: unspecified site Gout etiology: unspecified cause Chronicity: chronic Presence of tophus: without tophus Qualified Code(s): M1A.9XX0 - Chronic gout, unspecified, without tophus (tophi) - Time Spent With Patient Total time spent is greater than 50% in coordination of care (as documented) at patient's floor/unit and/or counseling patient: - Subjective Interval history: Ms. Campa is a 67 year old female with PMH DM, morbid obesity, COPD, Chronic hypoxic resp fialure uses 2 lit O2 and hyperlipidemia who presented to ER with two days history of chief complaint of shortness of breath, Chest pain, pressure in character the resolved with nitroglycerin. ECG revealed no significant abnormalities and first set of cardiac enzymes were normal. The patient was admitted to R/O ACS. Pt was placed on cardiac catheterization technologist. So far her cardiac enzymes negative. She denied any more CP / SOB - Constitutional Vitals: Temp Pulse Resp BP Pulse Ox 98.2 F 94 17 146/70 96 03/03/18 11:10 03/03/18 11:10 03/03/18 11:10 03/03/18 11:10 03/03/18 11:10 General appearance: Present: A&O X 3 - Head Head exam: Present: atraumatic, normal inspection - Neck Neck exam general surgery: Present: supple - Respiratory Respiratory exam: Present: decreased breath sounds, wheezes. Absent: rales, respiratory distress, rhonchi - Cardiovascular Cardiovascular exam: Present: RRR, +S1, +S2. Absent: tachycardia - GI/Abdominal GI/Abdominal exam: Present: normal bowel sounds, soft. Absent: rebound, rigid, tenderness - Extremities Exam Extremities exam: Absent: calf tenderness, pedal edema, tenderness - Back Exam Back exam: Absent: CVA tenderness (L), CVA tenderness (R) - Neurological Exam Neurological exam: Present: alert, oriented X3 - Psychiatric Psychiatric exam: Present: normal affect, normal mood - Skin Skin exam: Absent: rash Internal Medicine: Result - Labs CBC & Chem 7: 03/03/18 02:45 03/03/18 02:45 Labs: Short CBC 03/03/18 Range/Units 02:45 WBC 7.2 (4.3-11.1) K/mcL Hgb 10.2 L (11.5-15.4) g/dL Hct 30.5 L (35.3-44.9) % Plt Count 185 (140-400) K/mcL Neutrophils # 5.3 (1.6-8.9) K/mcL BMP 03/03/18 02:45 Sodium 140 Potassium 3.9 Chloride 102 Carbon Dioxide 29 BUN 19 Creatinine 1.15 Glucose 97 Calcium 9.1 Cardiac Enzymes 03/02/18 03/03/18 03/03/18 Range/Units 20:40 02:45 08:30 Troponin I < 0.03 < 0.03 < 0.03 (< 0.04) ng/mL Liver Function 03/03/18 Range/Units 02:45 Total Bilirubin 0.5 (0.3-1.0) mg/dL AST 28 (13-39) Units/L ALT 25 (7-52) Units/L Alkaline Phosphatase 109 H (34-104) Units/L Albumin 3.7 (3.5-5.7) g/dL Urine 03/02/18 Range/Units 22:30 Urine Color Yellow (Yellow) Urine Clarity Clear (Clear) Urine pH 6.0 (5.0-8.0) pH Units Ur Specific [place] 1.021 (1.010-1.025) Urine Protein Trace (Neg-Trace) mg/dL Urine Glucose (UA) Normal (Normal) mg/dL - ABG Interpretation ABG results: PT/INR, D-dimer PT 12.2 Seconds (9.4-12.1) H 03/03/18 02:45 Consult Discharge Plan - Plan Referrals: Dwayne-Carole Weiss DO [Primary Care Provider] -
[2018-03-03] MEDS: *HR* LORazepam 1 MG TABLET PO PRN (20:21)
[2018-03-04] MEDS: *HR* Heparin 5,000 UNIT/ML VIAL SQ SCH ×2 (05:07→17:49)
[2018-03-04] MEDS ORDERED: Regadenoson 0.4 MG/5 ML SYRINGE IVP ONE (05:33)
[2018-03-04] MEDS: Insulin LISPRO 300 UNITS/3 ML VIAL SQ SCH ×4 (07:29→20:12)
[2018-03-04] MEDS: Tiotropium 18 MCG inhalation IH SCH (07:30)
--- NOTE | 2018-03-04 08:17 | Internal Med Progress Note ---
Date of Encounter: 03/04/18 Time of Encounter: 08:15 - Assessment and plan (1) Chest pain Current Visit: Yes Status: Acute Assessment and plan: So far negative troponin x 3 No acute ischemic changes noticed on EKG 2 D Echo - Preserved LVEF 60-65%, Grossly normal LV. Mild LV diastolic dysfunction Since pt is high risk fro ACS ordered pharmacological stress test .. Due to her obesity may need 2 day testing Reviewed her previous stress test from 2016 Qualifiers: Chest pain type: unspecified Qualified Code(s): R07.9 - Chest pain, unspecified (2) Hypertension Current Visit: No Status: Chronic Assessment and plan: stable with home med Imdur will start her on low dose Metoprolol 25 BID after stress test Qualifiers: Hypertension type: essential hypertension Qualified Code(s): I10 - Essential (primary) hypertension (3) COPD (chronic obstructive pulmonary disease) Current Visit: No Status: Chronic Assessment and plan: Not in exacerbation Cont home regimen INH Qualifiers: COPD type: unspecified COPD Qualified Code(s): J44.9 - Chronic obstructive pulmonary disease, unspecified (4) SILVIA (obstructive sleep apnea) Current Visit: No Status: Chronic Assessment and plan: We will con home O2 , the patient does use BIPAP at night. (5) DVT prophylaxis Current Visit: No Status: Acute Assessment and plan: On SQ heparin (6) Type 2 diabetes mellitus Current Visit: No Status: Chronic Qualifiers: Diabetes mellitus termite technician insulin use: with termite technician use Diabetes mellitus complication status: with unspecified complications Qualified Code(s) : E11.8 - Type 2 diabetes mellitus with unspecified complications; Z79.4 - long term care pharmacist (current) use of insulin (7) CKD (chronic kidney disease) Current Visit: No Status: Chronic Assessment and plan: Cr is at baseline - seems to be CKD2-3 Qualifiers: Chronic kidney disease stage: stage 2 (mild) Qualified Code(s): N18.2 - Chronic kidney disease, stage 2 (mild) (8) Morbid obesity Current Visit: No Status: Acute Assessment and plan: counseled to loose weight (9) Gout Current Visit: Yes Status: Acute Assessment and plan: Resumed home meds. Qualifiers: Gout site: unspecified site Gout etiology: unspecified cause Chronicity: chronic Presence of tophus: without tophus Qualified Code(s): M1A.9XX0 - Chronic gout, unspecified, without tophus (tophi) - Time Spent With Patient Total time spent is greater than 50% in coordination of care (as documented) at patient's floor/unit and/or counseling patient: - Subjective Interval history: Ms. Campa is a 67 year old female with PMH DM, morbid obesity, COPD, Chronic hypoxic resp fialure uses 2 lit O2 and hyperlipidemia who presented to ER with two days history of chief complaint of shortness of breath, Chest pain, pressure in character the resolved with nitroglycerin. ECG revealed no significant abnormalities and first set of cardiac enzymes were normal. The patient was admitted to R/O ACS. Pt was placed on residential door unit installer. So far her cardiac enzymes negative. She denied any more CP / SOB. She did develop eczematous rash over her face. - Constitutional Vitals: Temp Pulse Resp BP Pulse Ox 98.2 F 95 16 135/67 98 03/04/18 06:51 03/04/18 06:51 03/04/18 07:32 03/04/18 06:51 03/04/18 07:32 General appearance: Present: A&O X 3 - Head Head exam: Present: atraumatic, normal inspection - Neck Neck exam general surgery: Present: supple - Respiratory Respiratory exam: Present: decreased breath sounds. Absent: rales, respiratory distress, rhonchi, wheezes - Cardiovascular Cardiovascular exam: Present: RRR, +S1, +S2. Absent: tachycardia - GI/Abdominal GI/Abdominal exam: Present: normal bowel sounds, soft. Absent: rebound, rigid, tenderness - Extremities Exam Extremities exam: Absent: calf tenderness, pedal edema, tenderness - Back Exam Back exam: Absent: CVA tenderness (L), CVA tenderness (R) - Neurological Exam Neurological exam: Present: alert, oriented X3 - Psychiatric Psychiatric exam: Present: normal affect, normal mood - Skin Skin exam: Present: rash (eczematous rash over the face) Internal Medicine: Result - Labs CBC & Chem 7: 03/03/18 02:45 03/03/18 02:45 Labs: Cardiac Enzymes 03/03/18 Range/Units 08:30 Troponin I < 0.03 (< 0.04) ng/mL - ABG Interpretation ABG results: PT/INR, D-dimer PT 12.2 Seconds (9.4-12.1) H 03/03/18 02:45 - Impressions Impressions Echocardiogram 03/03/18 14:00 Impressions: Technically sub-optimal due to poor echocardiographic windows. LVEF 60-65%. Not all LV segments were well visualized, but overall LVEF appears normal. Grossly normal LV chamber size and wall thickness. Mild left ventricular diastolic dysfunction. Normal right ventricular structure and function. Unable to estimate RVSP due to lack of TR jet. No obvious significant valvular dysfunction. Findings: Study Quality * Technically sub-optimal due to poor echocardiographic windows. ECG Findings * Normal sinus rhythm. Left Ventricle * LVEF 60-65%. Not all LV segments were well visualized, but overall LVEF appears normal. * Grossly normal LV chamber size and wall thickness. * Mild left ventricular diastolic dysfunction. Right Ventricle * Normal right ventricular structure and function. Left Atrium * Mildly dilated left atrium. Right Atrium * Normal right atrial size. Aortic Valve * Aortic valve not well visualized. * No aortic regurgitation. * No aortic stenosis. Mitral Valve * Normal mitral valve structure and function. * No mitral regurgitation. * No mitral stenosis. Tricuspid Valve * Tricuspid valve not well visualized. * No tricuspid regurgitation. * Unable to estimate RVSP due to lack of TR jet. Pulmonic Valve * Pulmonic valve not well visualized. Aorta * Normally sized aortic root. Pericardium * The pericardium appears normal. IVC * The IVC is not well evaluated. Pulmonary Artery * Pulmonary artery not well visualized. - VTE Documentation of Mechanical Device: Graduated compression elastic hosiery Consult Discharge Plan - Plan Referrals: Able-Carole Weiss DO [Primary Care Provider] -
[2018-03-04] MEDS: Multivit/Ca/Min/Fe/FA 1 TAB TABLET PO SCH (10:49)
[2018-03-04] MEDS: Aspirin 81 MG TAB.CHEW PO SCH (10:49)
[2018-03-04] MEDS: Magnesium Oxide 400 MG TABLET PO SCH ×2 (10:49→20:00)
[2018-03-04] MEDS: Isosorbide MONOnitrate (24 HR) 60 MG TAB.ER.24H PO SCH (10:49)
[2018-03-04] MEDS: *HR* HYDROcodone/Acet 5/325 mg TABLET PO PRN ×2 (10:49→22:34)
[2018-03-04] MEDS: Insulin DETEMIR 100 UNIT/ML X5UNITS SQ SCH ×2 (12:09→20:13)
--- NOTE | 2018-03-04 14:27 | Electrocardiograph Report ---
[address] [address] Test Date: 2018-03-02 Pat Name: Shira Campa Department: 102 Room: 3B22 Gender: F Avionics Technician: : 1950 Requested By: [id number] Order Number: [id number] Reading MD: Shelby Franklin Measurements Intervals [place] Rate: 102 P: 0 RI: 144 QRS: -12 QRSD: 86 T: 78 QT: 321 QTc: 380 Interpretive Statements SINUS TACHYCARDIA BASELINE ARTIFACT Electronically Signed On 03-04-2018 14:25:52 EDT by Shelby Franklin
--- NOTE | 2018-03-04 14:33 | Electrocardiograph Report ---
[place] [address] Test Date: 2018-03-02 Pat Name: Shira Campa Department: 113 Room: 3B22 Gender: F Napkin Machine Operator: : 1950 Requested By: Sheela Pete Order Number: [id number] Reading MD: Shelby Franklin Measurements Intervals [place] Rate: 91 P: 11 [place]: 156 QRS: -10 QRSD: 102 T: 77 QT: 361 QTc: 410 Interpretive Statements SINUS RHYTHM NONSPECIFIC ST-WAVE ABNORMALITY Electronically Signed On 03-04-2018 14:31:28 EDT by Shelby Franklin
[2018-03-04] MEDS: *HR* LORazepam 1 MG TABLET PO PRN (19:59)
[2018-03-05] MEDS: *HR* Heparin 5,000 UNIT/ML VIAL SQ SCH ×2 (06:15→17:04)
[2018-03-05] MEDS: Tiotropium 18 MCG inhalation IH SCH (07:46)
[2018-03-05] MEDS: Magnesium Oxide 400 MG TABLET PO SCH (08:42)
[2018-03-05] MEDS: Aspirin 81 MG TAB.CHEW PO SCH (08:42)
[2018-03-05] MEDS: Isosorbide MONOnitrate (24 HR) 60 MG TAB.ER.24H PO SCH (08:43)
[2018-03-05] MEDS: Multivit/Ca/Min/Fe/FA 1 TAB TABLET PO SCH (08:43)
[2018-03-05] MEDS: Insulin LISPRO 300 UNITS/3 ML VIAL SQ SCH ×3 (08:46→17:07)
[2018-03-05] MEDS: Insulin DETEMIR 100 UNIT/ML X5UNITS SQ SCH (08:50)
[2018-03-05] MEDS ORDERED: Hydrocortisone 1% OINT 28 GM TUBE TP SCH (09:00)
[2018-03-05] MEDS: *HR* LORazepam 1 MG TABLET PO PRN (13:43)
--- NOTE | 2018-03-05 14:55 | Cardiology Consult Note ---
Date of Encounter: 03/05/18 Time of Encounter: 14:30 Assessment and Plan (1) Chest pain Current Visit: Yes Status: Acute Describes atypical/typical chest pain symptoms. Troponin negative x3. Nonspecific ST-T wave abnormalities noted on ECG. Prior [facility] 2010 demonstrated minimal CAD TTE 03/03/18: LVEF 60-65%, mild LVDD, normal RV structure and function, no obvious valvular dysfunction Regadenoson nuclear 2-day 03/05/18: small, mild basal-mid inferior wall perfusion defect in which mild ischemia cannot be excluded, gated EF=56% Suspect symptoms may be secondary to blood pressure, will add low dose betablocker. Continue asa, statin, and nitrates. Patient is anxious to go home, will further discuss with Dr. Trinidad. Qualifiers: Chest pain type: unspecified Qualified Code(s): R07.9 - Chest pain, unspecified (2) CKD (chronic kidney disease) Current Visit: No Status: Acute SCr stable. Follows with Dr. Conway as outpatient. Qualifiers: Chronic kidney disease stage: stage 3 (moderate) Qualified Code(s): N18.3 - Chronic kidney disease, stage 3 (moderate) (3) Essential hypertension Current Visit: Yes Status: Acute Remains elevated as inpatient, will start betablocker. Discussion w patient/family: The assessment and plan as outlined above was discussed with the patient and/or family members who expressed understanding and agreement. All questions were answered. Thank you for involving us in the care of your patient. Please call with any questions. The patient will be discussed and reviewed with Dr. Trinidad; changes to be made accordingly. History of Present Illness Consult date: 03/05/18 Requesting physician: Jorge Perez Consult reason: Abnormal stress test Chief complaint: Chest discomfort History of present illness: Ms. Campa is a 67 year old female with a history of HTN, DM, obesity, SILVIA ( intolerant to CPAP), and CKD-3 who presented to the ED with feeling unwell since last Sunday. Reports non-radiating midnsternal chest squeezing that occurs with activity and seems to improve with rest. Symptoms lasts for minutes. Associated symptoms include palpitations and shortness of breath with walking. Has noted lately blood pressure has been running high, was previously on antihypertensives years ago however was taken off by Dr. Conway due to CKD. Troponin negative x3. Non-specific ST/T wave abnormalities on ECG. Has been chest pain free since admission. Cardiology consulted for abnormal stress test. Previous testing: Left heart catheterization 09/01/2011 minimal CAD. Stress test 01/14/2014: Negative for ischemia or prior infarct. Lexiscan nuclear stress test 07/2016: Negative for ischemia or prior infarct. Echocardiogram 04/21/2014: EF 55%. No significant valve disease. Echocardiogram 07/2016: LVEF 60-65%. Mild diastolic dysfunction. No significant valvular dysfunction. RVSP was not well obtained. Past Med Surg Social Fam HX - Past Medical History Attestation: Yes The following information was validated with the patient. Source: patient Medical history: COPD, diabetes, hyperlipidemia, hypertension, renal disease Psychiatric history: anxiety, depression - Past Surgical History Surgical History: appendectomy, cholecystectomy, hysterectomy, knee replacement - Social History Smoking Status: Former smoker Smokeless Tobacco Status: No Alcohol use: none Drug use: none - Family History Mother Age: 91 Living Status: Still Living Hx Family Cardiac Disorders: Yes Father Family Member Ethnicity: Non- Living Status: Hx Family Cancer: Yes Daughter Living Status: Still Living Hx Family Cardiac Disorders: Yes (HTN) Hx Family Cancer: Yes (unknown what kind) Hx Family Endocrine Disorder: Yes (DM) Medications and Allergies Albuterol Neb [AccuNeb] 1.25 mg IH Q8H PRN 06/08/16 [History] Albuterol Sulfate [Albuterol Inhaler] 2 puff IH Q4HR PRN 06/08/16 [History] Allopurinol [Zyloprim 100 MG] 200 mg PO DAILY 06/08/16 [History] Amitriptyline [Elavil] 50 mg PO HS 06/08/16 [History] Aspirin 81 mg PO DAILY 06/08/16 [History] Atorvastatin Calcium [Lipitor] 40 mg PO HS 06/08/16 [History] HYDROcodone/Acet 5/325 mg [Rigby 5-325 mg] 1 tab PO Q6H PRN 06/08/16 [History] Insulin Glargine,Hum.rec.anlog [Lantus Solostar] 90 unit SQ BID 06/08/16 [ History] Isosorbide MONOnitrate (24 HR) [Imdur] 60 mg PO DAILY 06/08/16 [History] LORazepam [Ativan] 1 mg PO BID PRN 06/08/16 [History] Magnesium Oxide [Magnesium] 400 mg PO DAILY 06/08/16 [History] Nitroglycerin [Nitrostat] 0.4 mg SL Q5M PRN 06/08/16 [History] Oxygen 2 l NS AD 06/08/16 [History] Tiotropium [Spiriva] 18 mcg IH 0700 06/08/16 [History] metFORMIN [Glucophage] 500 mg PO BIDWM 06/08/16 [History] Insulin ASPART [NovoLOG] 0 unit SQ TIDAC PRN 05/22/17 [History] Multivitamin [Multi-Day Vitamins] 1 each PO DAILY 05/22/17 [History] Omeprazole [PriLOSEC] 40 mg PO DAILY #30 cap 05/23/17 [Rx] Duloxetine HCl [Cymbalta] 60 mg PO DAILY 03/02/18 [History] Ramelteon [Rozerem] 8 mg PO HS 03/03/18 [History] 3 Allergy/AdvReac Type Severity Reaction Status Date / Time indomethacin [From Indocin] AdvReac See Verified 08/09/16 19:54 Comments sulfamethoxazole AdvReac Gastrointestinal Verified 08/09/16 19:54 [From Bactrim] Upset trimethoprim [From Bactrim] AdvReac Gastrointestinal Verified 08/09/16 19:54 Upset All Systems Review: The remainder of the systems were reviewed and are negative - Cardiovascular Cardiovascular: as per HPI Physical Examination Vital Signs, Last 4 Hours Temp Pulse Resp BP Pulse Ox 03/05/18 11:03 98.6 F 85 14 160/65 97 General: Conversant, No Apparent Distress, Other (morbidly obese) Cardiac: Reg Rate and Rhythm, Normal S1 and S2 Lungs: Normal Breath Sounds Neuro: Alert and responsive Abdomen: Soft, Other (large) Musculoskeletal: No Chest Wall Tenderness Extremities: No Edema, Normal Pulses Results 03/03/18 02:45 03/03/18 02:45 Active Medications Acetaminophen (Tylenol) 650 mg PO Q6HR PRN PRN Reason: Mild Pain/Fever Stop: 09/01/18 20:12 Last Admin: 03/03/18 17:09 Dose: 650 mg Hydrocodone Bitart/Acetaminophen (Rigby 5-325 Mg) 1 tab PO Q6HR PRN PRN Reason: Moderate Pain Stop: 09/01/18 20:12 Last Admin: 03/04/18 22:34 Dose: 1 tab Albuterol Sulfate (Accuneb) 1.25 mg IH Q8H PRN PRN Reason: Shortness Of Breath Stop: 09/01/18 22:38 Albuterol Sulfate (Albuterol Inhaler) 2 puff IH Q4HR PRN PRN Reason: Shortness Of Breath Stop: 09/01/18 22:38 Allopurinol (Zyloprim) 100 mg PO BID [facility] Stop: 09/02/18 09:01 Last Admin: 03/05/18 08:42 Dose: 100 mg Amitriptyline HCl (Elavil) 50 mg PO HS [facility] Stop: 09/02/18 21:01 Last Admin: 03/04/18 20:00 Dose: 50 mg Aspirin (Aspirin) 81 mg PO DAILY [facility] Stop: 09/02/18 09:01 Last Admin: 03/05/18 08:42 Dose: 81 mg Atorvastatin Calcium (Lipitor) 40 mg PO HS [facility] Stop: 09/02/18 21:01 Last Admin: 03/04/18 20:00 Dose: 40 mg Dextrose/Water (Dextrose 50% (Syg)) 25 ml IVP AD PRN PRN Reason: Hypoglycemia Stop: 09/02/18 01:37 Duloxetine HCl (Cymbalta) 60 mg PO DAILY [facility] Stop: 09/02/18 09:01 Last Admin: 03/05/18 08:43 Dose: 60 mg Glucagon (Glucagen) 1 mg IM ONCE PRN PRN Reason: Hypoglycemia Stop: 09/02/18 01:37 Glucose (Gluctose) 15 gm PO ONCE PRN PRN Reason: Hypoglycemia Stop: 09/02/18 01:37 Glucose (Gluctose) 30 gm PO ONCE PRN PRN Reason: Hypoglycemia Stop: 09/02/18 01:37 Heparin Sodium (Porcine) (Heparin) 5,000 unit SQ Q12HCO [facility] Stop: 09/02/18 06:01 Last Admin: 03/05/18 06:15 Dose: 5,000 unit Hydrocortisone Acetate (Cortaid) 1 appl TP BID [facility] PRN Reason: Protocol Stop: 09/04/18 09:01 Last Admin: 03/05/18 08:44 Dose: 1 appl Dextrose (Dextrose 5%) 1,000 mls @ 100 mls/hr IVC .Q10H PRN PRN Reason: HYPOGLYCEMIA Stop: 09/02/18 01:37 Insulin Detemir (Levemir) 90 unit SQ BID [facility] Stop: 09/02/18 09:01 Last Admin: 03/05/18 08:50 Dose: 90 unit Insulin Human Lispro (Humalog) 0 units SQ HS [facility] PRN Reason: Protocol Stop: 09/02/18 21:01 Last Admin: 03/04/18 20:12 Dose: 5 units Insulin Human Lispro (Humalog) 0 units SQ TIDAC [facility] PRN Reason: Protocol Stop: 09/02/18 07:31 Last Admin: 03/05/18 12:27 Dose: 6 units Isosorbide Mononitrate (Imdur) 60 mg PO DAILY [facility] Stop: 09/02/18 09:01 Last Admin: 03/05/18 08:43 Dose: 60 mg Lorazepam (Ativan) 1 mg PO BID PRN PRN Reason: Anxiety Stop: 09/01/18 22:38 Last Admin: 03/05/18 13:43 Dose: 1 mg Magnesium Oxide (Mag-Ox) 1,200 mg PO BID [facility] PRN Reason: Protocol Stop: 09/02/18 09:01 Last Admin: 03/05/18 08:42 Dose: 1,200 mg Multivitamins/Calcium (Thera M Plus) 1 tab PO DAILY [facility] Stop: 09/02/18 09:01 Last Admin: 03/05/18 08:43 Dose: 1 tab Naloxone HCl (Narcan) 0.4 mg IVP Q2MIN PRN PRN Reason: SEE COMMENTS Stop: 09/01/18 20:12 Nitroglycerin (Nitroglycerin) 0.4 mg SL Q5M PRN PRN Reason: Chest Pain Stop: 09/01/18 22:38 Omeprazole (Prilosec) 40 mg PO 0630 [facility] Stop: 09/02/18 06:31 Last Admin: 03/05/18 06:15 Dose: 40 mg Tiotropium [place] (Spiriva) 18 mcg IH 0700 [facility] Stop: 09/02/18 07:01 Last Admin: 03/05/18 07:46 Dose: 18 mcg - Imaging and Cardiology Stress Test: report reviewed Echo: report reviewed Cardiac cath: report reviewed Other Results: 12 hour tele: avg HR=90 SR. No events noted. - EKG Interpretation EKG results cardiology: personally reviewed Consult Discharge Plan - Plan Instructions: Chest Pain (DC) Additional Instructions: Follow-up appointments: If there is not an appointment listed below, please call your physician and schedule a follow-up appointment. If you have congestive heart failure and your symptoms return, make an appointment with your physician. Medication List: Carry an up to date list of medications you are taking at all time. We have given you an updated medication list including any new medications that you have been prescribed. Please provide that list to your primary provider Symptoms: If your condition changes or you experience any of the following symptoms, notify your physician immediately: Unusual or worsening pain, fever, persistent nausea and vomiting, bleeding, increase in swelling (especially in your legs), sudden weight gain, extreme dizziness, chest pain, increased drainage or redness from a wound or incision. Go to the emergency department if you experience a problem with breathing. Weights: If you have a history of swelling or shortness of breath, weigh yourself daily and notify your physician if you have a weight gain of two or more pounds in one day or 5 or more pounds in a week. If you experience any of the warning signs for stroke: Sudden numbness or weakness of the face, arm or leg; especially on one side of the body, sudden confusion, trouble speaking or understanding, sudden trouble seeing in one or both eyes, sudden trouble walking, dizziness, loss of balance or coordination, sudden sever headache with no cause; Call 911 or go to the emergency room. Stroke is a medical emergency. Some risk factors for stroke: Age, cigarette smoking, diabetes, excessive alcohol consumption, family history , high blood pressure, overweight, physical inactivity, prior stroke, heart attack, diagnosis of carotid artery stenosis or other artery disease. If you smoke, STOP: Smoking or tobacco use significantly increases your risk of heart and lung disease. Your chance of disease greatly increases if you continue to smoke. For more information, call the [place] tobacco quit line for smoking cessation QUIT-NOW ( ) Referrals: Carole Spears DO [Primary Care Provider] - 03/12/18 3:45 pm
[2018-03-05 14:59] VITALS: BP 135/56
[2018-03-05] MEDS: *HR* HYDROcodone/Acet 5/325 mg TABLET PO PRN (17:04)
--- NOTE | 2018-03-05 17:11 | Discharge Summary ---
- NOTES TO OUTPATIENT PROVIDER Notes to Outpatient Provider: f/u with PCP in one week. f/u with Card Dr. Trinidad 3-4 weeks Orders not resulted at time of discharge: Pending orders 03/03/18 15:10 NM yair perf SPECT multi [NM] Routine Date of Encounter: 03/05/18 Time of Encounter: 17:05 - Discharge Diagnosis (1) Chest pain Priority: Primary Status: Acute Qualifiers: Chest pain type: unspecified Qualified Code(s): R07.9 - Chest pain, unspecified (2) Hypertension Priority: Secondary Status: Chronic Qualifiers: Hypertension type: essential hypertension Qualified Code(s): I10 - Essential (primary) hypertension (3) COPD (chronic obstructive pulmonary disease) Priority: Secondary Status: Chronic Qualifiers: COPD type: unspecified COPD Qualified Code(s): J44.9 - Chronic obstructive pulmonary disease, unspecified (4) SILVIA (obstructive sleep apnea) Priority: Secondary Status: Chronic (5) DVT prophylaxis Priority: Secondary Status: Acute (6) Type 2 diabetes mellitus Priority: Secondary Status: Chronic Qualifiers: Diabetes mellitus fdc insulin use: with termite helper use Diabetes mellitus complication status: with unspecified complications Qualified Code(s) : E11.8 - Type 2 diabetes mellitus with unspecified complications; Z79.4 - nursing home (current) use of insulin (7) CKD (chronic kidney disease) Priority: Secondary Status: Chronic Qualifiers: Chronic kidney disease stage: stage 2 (mild) Qualified Code(s): N18.2 - Chronic kidney disease, stage 2 (mild) (8) Morbid obesity Priority: Secondary Status: Acute (9) Gout Priority: Secondary Status: Acute Qualifiers: Gout site: unspecified site Gout etiology: unspecified cause Chronicity: chronic Presence 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 Campa is a 67 year old female with PMH DM, morbid obesity, COPD, Chronic hypoxic resp fialure uses 2 lit O2 and hyperlipidemia who presented to ER with two days history of chief complaint of shortness of breath, Chest pain, pressure in character the resolved with nitroglycerin. ECG revealed no significant abnormalities and first set of cardiac enzymes were normal. The patient was admitted to R/O ACS. Pt was placed on radiation monitor. So far her cardiac enzymes negative. She denied any more CP / SOB. No acute EKG changes noticed. However since pt is high risk fro ACS with age, SILVIA, HTN, DM2 and HLD ordered pharmacological stress test which came back as slightly positive with minor perfusion defect. Cardiology consulted who evaluated the pt and recommend to continue medical management only, with better BP control. So added metoprolol for her current BP regimen. Will d/c her home in stable condition today. She remained CP free through out this hospital stay. Recommend to f/u with Card as an out pt. - Time Spent with Patient Total time spent providing and/or coordinating discharge services: - Discharge Medications Home Medications: Albuterol Neb [AccuNeb] 1.25 mg IH Q8H PRN 06/08/16 [History] Albuterol Sulfate [Albuterol Inhaler] 2 puff IH Q4HR PRN 06/08/16 [History] Allopurinol [Zyloprim 100 MG] 200 mg PO DAILY 06/08/16 [History] Amitriptyline [Elavil] 50 mg PO HS 06/08/16 [History] Aspirin 81 mg PO DAILY 06/08/16 [History] Atorvastatin Calcium [Lipitor] 40 mg PO HS 06/08/16 [History] HYDROcodone/Acet 5/325 mg [[place] 5-325 mg] 1 tab PO Q6H PRN 06/08/16 [History] Insulin Glargine,Hum.rec.anlog [Lantus Solostar] 90 unit SQ BID 06/08/16 [ History] Isosorbide MONOnitrate (24 HR) [Imdur] 60 mg PO DAILY 06/08/16 [History] LORazepam [Ativan] 1 mg PO BID PRN 06/08/16 [History] Magnesium Oxide [Magnesium] 400 mg PO DAILY 06/08/16 [History] Nitroglycerin [Nitrostat] 0.4 mg SL Q5M PRN 06/08/16 [History] Oxygen 2 l NS AD 06/08/16 [History] Tiotropium [Spiriva] 18 mcg IH 0700 06/08/16 [History] metFORMIN [Glucophage] 500 mg PO BIDWM 06/08/16 [History] Insulin ASPART [NovoLOG] 0 unit SQ TIDAC PRN 05/22/17 [History] Multivitamin [Multi-Day Vitamins] 1 each PO DAILY 05/22/17 [History] Omeprazole [PriLOSEC] 40 mg PO DAILY #30 cap 05/23/17 [Rx] Duloxetine HCl [Cymbalta] 60 mg PO DAILY 03/02/18 [History] Ramelteon [Rozerem] 8 mg PO HS 03/03/18 [History] Allergies/Adverse Reactions: 3 Allergy/AdvReac Type Severity Reaction Status Date / Time indomethacin [From Indocin] AdvReac See Verified 08/09/16 19:54 Comments sulfamethoxazole AdvReac Gastrointestinal Verified 08/09/16 19:54 [From Bactrim] Upset trimethoprim [From Bactrim] AdvReac Gastrointestinal Verified 08/09/16 19:54 Upset Date of admission: 03/02/18 17:12 Primary care physician: Carole Rice Consults: 03/02/18 20:18 Consult to Cardiac Rehabilitation-Phase1 [CONS] Routine Comment: Reason for Consult: cp Call Completed: Yes Consult to Nurse Navigator [CONS] Routine Comment: 03/05/18 13:48 Consult to Cardiology [CONS] Routine Comment: Consulting Provider: Cardiology Cassandra Reason for Consult: Chest pain..abnormal stress test Time Notified: 13:48 Call Completed: Yes - Constitutional Vitals: Temp Pulse Resp BP Pulse Ox 98.4 F 95 14 135/56 95 03/05/18 14:57 03/05/18 14:57 03/05/18 14:57 03/05/18 14:57 03/05/18 14:57 General appearance: Present: A&O X 3 - Head Head exam: Present: atraumatic, normal inspection - Neck Neck exam general surgery: Present: supple - Respiratory Respiratory exam: Present: decreased breath sounds. Absent: rales, respiratory distress, rhonchi, wheezes - Cardiovascular Cardiovascular exam: Present: RRR, +S1, +S2. Absent: tachycardia - GI/Abdominal GI/Abdominal exam: Present: normal bowel sounds, soft. Absent: rebound, rigid, tenderness - Extremities Exam Extremities exam: Absent: calf tenderness, pedal edema, tenderness - Back Exam Back exam: Absent: CVA tenderness (L), CVA tenderness (R) - Neurological Exam Neurological exam: Present: alert, oriented X3 - Psychiatric Psychiatric exam: Present: normal affect, normal mood - Patient Status Disposition: Home, Self-Care Condition: Good Overall status at discharge: patient is back to baseline - Discharge Instructions Instructions: Chest Pain (DC) Follow Up With: Dwayne-Carole Weiss DO [Primary Care Provider] - 03/12/18 3:45 pm Abdelrahman Trinidad MD [Partnered Physician] - Additional Instructions: Follow-up appointments: If there is not an appointment listed below, please call your physician and schedule a follow-up appointment. If you have congestive heart failure and your symptoms return, make an appointment with your physician. Medication List: Carry an up to date list of medications you are taking at all time. We have given you an updated medication list including any new medications that you have been prescribed. Please provide that list to your primary provider Symptoms: If your condition changes or you experience any of the following symptoms, notify your physician immediately: Unusual or worsening pain, fever, persistent nausea and vomiting, bleeding, increase in swelling (especially in your legs), sudden weight gain, extreme dizziness, chest pain, increased drainage or redness from a wound or incision. Go to the emergency department if you experience a problem with breathing. Weights: If you have a history of swelling or shortness of breath, weigh yourself daily and notify your physician if you have a weight gain of two or more pounds in one day or 5 or more pounds in a week. If you experience any of the warning signs for stroke: Sudden numbness or weakness of the face, arm or leg; especially on one side of the body, sudden confusion, trouble speaking or understanding, sudden trouble seeing in one or both eyes, sudden trouble walking, dizziness, loss of balance or coordination, sudden sever headache with no cause; Call 911 or go to the emergency room. Stroke is a medical emergency. Some risk factors for stroke: Age, cigarette smoking, diabetes, excessive alcohol consumption, family history , high blood pressure, overweight, physical inactivity, prior stroke, heart attack, diagnosis of carotid artery stenosis or other artery disease. If you smoke, STOP: Smoking or tobacco use significantly increases your risk of heart and lung disease. Your chance of disease greatly increases if you continue to smoke. For more information, call the [employer] tobacco quit line for smoking cessation QUIT-NOW ( ) - Diet and Activity Activity: increase activity as tolerated Diet: low salt diet - VTE Documentation of Mechanical Device: Graduated compression elastic hosiery
== END 2018-03-05 18:25 | disposition home or self-care (01) ==
LOC: 3BNU 14:28 → EMEROO 14:28 → 3BNU 17:51
PROVIDERS: ADMIT Internal Medicine Nephrology; ATTEND Internal Medicine Nephrology

== ENCOUNTER 2019-02-11 16:10 | Observation (INO) ==
[2019-02-11 18:19] LABS: Basophils % 0.5 %; Eosinophils # 0.1 K/mcL (0.0-0.6); Eosinophils % 1.9 %; Hematocrit 32.1 % (35.3-44.9); Hemoglobin 10.1 g/dL (11.5-15.4); Immature Granulocytes % 0.5 % (0-4); Lymphocytes # 0.8 K/mcL (0.6-4.6); Lymphocytes % 13.3 %; Mean Corpuscular HGB Conc 31.5 g/dL (31.6-35.5); Mean Corpuscular Volume 98.5 fL (83.0-100.0); Mean Platelet Volume 10.1 fL (9.4-12.4); Monocytes # 0.5 K/mcL (0.0-1.3); Monocytes % 7.4 %; Neutrophils # 4.7 K/mcL (1.6-8.9); Platelet Count 168 K/mcL (140-400); Red Blood Count 3.26 M/mcL (3.82-4.97); Red Cell Distribution Width 15.7 % (11.5-14.5); Segmented Neutrophils % 76.4 %
[2019-02-11] MEDS ORDERED: Ipratropium/Albuterol Neb 3 ML IH ONE (18:35)
[2019-02-11] MEDS ORDERED: predniSONE 20 MG TABLET PO ONE (18:36)
[2019-02-11 18:41] LABS: BUN/Creatinine Ratio 23 (6-26); Blood Urea Nitrogen 25 mg/dL (8-23); Calcium 9.5 mg/dL (8.6-10.3); Carbon Dioxide 26 mEq/L (23-29); Chloride 98 mEq/L (98-107); Glucose 262 mg/dL (70-105); Osmolality,Calculated 291 (280-300); Potassium 4.5 mEq/L (3.5-5.1); Sodium 134 mEq/L (136-145); Troponin I < 0.03 ng/mL (< 0.04); eGFR For Non-African Americans 50 (> 60)
--- NOTE | 2019-02-11 18:41 | Emergency Department Note ---
Disposition Clinical Impression: Hyperglycemia COPD (chronic obstructive pulmonary disease) Qualifiers: COPD type: unspecified COPD Qualified Code(s): J44.9 - Chronic obstructive pulmonary disease, unspecified Disposition: Admitted As Inpatient Condition: Good Time of Disposition: 20:44 SOB HPI - General Chief Complaint: ED Shortness of Breath/Dyspnea Stated Complaint: Bronchitis Time Seen by Provider: 02/11/19 18:03 Source: patient Mode of arrival: ambulatory Limitations: no limitations Nursing Notes Reviewed: Yes Vital Signs Reviewed: Yes - History of Present Illness 68-year-old female with history of CAD, COPD with 2 L, hypertension, diabetes presents for evaluation of shortness of breath. Patient states she has a baseline oxygen requirement 2 years. Notably short of breath over the past 24- 48 hours. Notes productive sputum change this morning. No fevers. States she has been short of breath at rest and with exertion. States that she usually never lets her COPD get this bad. Denies any fevers. Notes chest pain related to the cough. No abdominal pain. No vomiting. No recent antibiotics or steroids. - Related Data Home Medications Medication Instructions Recorded Confirmed Albuterol Neb [AccuNeb] 1.25 mg IH Q8H PRN 06/08/16 02/11/19 Albuterol Sulfate [Albuterol 2 puff IH Q4HR PRN 06/08/16 02/11/19 Inhaler] Allopurinol [Zyloprim 100 MG] 100 mg PO BID 06/08/16 02/11/19 Amitriptyline [Elavil] 50 mg PO HS 06/08/16 02/11/19 Aspirin 81 mg PO DAILY 06/08/16 02/11/19 Atorvastatin Calcium [Lipitor] 40 mg PO HS 06/08/16 02/11/19 HYDROcodone/Acet 5/325 mg [[place] 1 tab PO Q6H PRN 06/08/16 02/11/19 5-325 mg] Insulin Glargine,Hum.rec.anlog 100 unit SQ BID 06/08/16 02/11/19 [Lantus Solostar] Isosorbide MONOnitrate (24 HR) 60 mg PO DAILY 06/08/16 02/11/19 [Imdur] LORazepam [Ativan] 1 mg PO BID PRN 06/08/16 02/11/19 Magnesium Oxide [Magnesium] 400 mg PO BID 06/08/16 02/11/19 Nitroglycerin [Nitrostat] 0.4 mg SL Q5M PRN 06/08/16 02/11/19 Tiotropium [Spiriva] 18 mcg IH 0700 06/08/16 02/11/19 metFORMIN [Glucophage] 500 mg PO BIDWM 06/08/16 02/11/19 Multivitamin [Multi-Day Vitamins] 1 each PO DAILY 05/22/17 02/11/19 Duloxetine HCl [Cymbalta] 60 mg PO BID 03/02/18 02/11/19 Ramelteon [Rozerem] 8 mg PO HS 03/03/18 02/11/19 Insulin ASPART [NovoLOG] 20 unit SQ TIDWM 02/11/19 02/11/19 Previous Rx's Medication Instructions Recorded Omeprazole [PriLOSEC] 40 mg PO DAILY #30 cap 05/23/17 Metoprolol [Lopressor] 25 mg PO BID #60 tablet 03/05/18 Allergies Allergy/AdvReac Type Severity Reaction Status Date / Time indomethacin [From Indocin] AdvReac See Verified 08/09/16 19:54 Comments sulfamethoxazole AdvReac Gastrointestinal Verified 08/09/16 19:54 [From Bactrim] Upset trimethoprim [From Bactrim] AdvReac Gastrointestinal Verified 08/09/16 19:54 Upset All systems ED: reviewed and negative except as stated. Constitutional: Denies: fever Cardiovascular: Reports: chest pain Respiratory: Reports: cough, dyspnea Gastrointestinal: Denies: abdominal pain, nausea, vomiting Past Medical History - Past Medical History Source: patient Medical history: Reports: CHF, COPD, coronary artery disease, diabetes, hyperlipidemia, hypertension, renal disease Surgical history: Reports: appendectomy, cholecystectomy, hysterectomy, knee replacement Psychiatric history: Reports: anxiety, depression CERTIFIED NURSE AIDE history: Reports: non-contributory - Social History Smoking Status: Former smoker Smokeless Tobacco Status: No Alcohol use: Reports: none Drug use: Reports: none Physical Exam - General Limitations: no limitations General appearance: alert, in no apparent distress, obese - Head Head exam: atraumatic, normocephalic, normal inspection - Eye Eye exam: Present: normal appearance - ENT ENT exam: normal exam - Neck Neck exam: Present: normal inspection - Chest Chest inspection: Present: normal inspection, symmetric chest wall rise - Respiratory Respiratory exam: Present: wheezes (faint expiratory), prolonged expiratory phase - Cardiovascular Cardiovascular exam: Present: regular rate, normal rhythm. Absent: normal heart sounds - Abdominal Exam Abdominal exam: Present: soft, Non-Tender - Extremities Exam Extremities exam: Present: normal inspection. Absent: pedal edema - Expanded Lower Extremity Exam Neurovascular/Tendon exam: Present: normal capillary refill - Back Exam Back exam: Present: normal inspection - Neurological Exam Neurological exam: Present: alert - Skin Skin exam: Present: warm, dry, intact, normal color Course Course Narrative: Patient seen and examined. Patient does have expiratory wheeze with increasing oxygen requirement and dyspnea. Patient will be given aerosol steroids basic labs ordered from triage. Patient also be given antibiotic. Disposition pending - Reevaluation(s) Reevaluation #1: Patient seen and examined. Patient is receiving her nebs. Better aeration. Time: 19:33 Reevaluation #2: Patient was able to ambulate but he became very dyspneic tachypnea can and dropped her oxygen 90%. Patient's repeat lung exam is better. Patient states he is breathing better. Time: 20:28 Vital Signs Temperature 98.5 F 02/11/19 16:13 Pulse Rate 93 02/11/19 16:13 Respiratory Rate 22 02/11/19 16:13 Blood Pressure 132/77 02/11/19 16:13 O2 Sat by Pulse Oximetry 94 02/11/19 16:13 Temperature 98.5 F 02/11/19 16:13 Pulse Rate 97 02/11/19 18:53 Respiratory Rate 18 02/11/19 19:09 Blood Pressure 132/64 02/11/19 18:53 O2 Sat by Pulse Oximetry 96 02/11/19 19:09 Oxygen Delivery Oxygen Delivery Nasal Cannula Shortness of Breath/Dyspnea - MDM Narrative Medical decision making narrative: Patient presented for concerns of bronchitis. Known COPD oxygen dependent. Patient received aerosols and did get improvement. Patient received steroids. Patient was able to ambulate however he came to get neck with increased work of breathing and became more hypoxic with oxygen sats in the 90. Patient states she did feel better after the treatments. At this point the patient has been using her aerosol at home every 4 hours. Patient is not a candidate this time for outpatient management. Patient will be admitted for COPD exacerbation. Patient was started on appropriate antibiotics. No concerns for PE as the patient's symptoms did not improve with initial COPD management. - Lab Data Lab results reviewed: Yes I reviewed the patient's lab results. Result diagrams: 02/11/19 18:06 02/11/19 18:06 Lab Results 02/11/19 02/11/19 02/11/19 Range/Units 18:06 18:06 18:06 WBC 6.2 (4.3-11.1) K/mcL RBC 3.26 L (3.82-4.97) M/mcL Hgb 10.1 L (11.5-15.4) g/dL Hct 32.1 L (35.3-44.9) % MCV 98.5 (83.0-100.0) fL MCH 31.0 (28.0-33.3) pg MCHC 31.5 L (31.6-35.5) g/dL RDW 15.7 H (11.5-14.5) % Plt Count 168 (140-400) K/mcL MPV 10.1 (9.4-12.4) fL Immature Gran % 0.5 (0-4) % Seg Neutrophils % 76.4 % Lymphocytes % 13.3 % Monocytes % 7.4 % Eosinophils % 1.9 % Basophils % 0.5 % Neutrophils # 4.7 (1.6-8.9) K/mcL Lymphocytes # 0.8 (0.6-4.6) K/mcL Monocytes # 0.5 (0.0-1.3) K/mcL Eosinophils # 0.1 (0.0-0.6) K/mcL Basophils # 0.0 (0.0-0.2) K/mcL Sodium 134 L (136-145) mEq/L Potassium 4.5 (3.5-5.1) mEq/L Chloride 98 (98-107) mEq/L Carbon Dioxide 26 (23-29) mEq/L BUN 25 H (8-23) mg/dL Creatinine 1.09 (0.60-1.20) mg/dL Est GFR ( Amer) > 60 (> 60) Est GFR (Non-Af Amer) 50 L (> 60) BUN/Creatinine Ratio 23 (6-26) Glucose 262 H (70-105) mg/dL Calculated Osmolality 291 (280-300) Lactic Acid 2.2 (0.5-2.2) mmol/L Calcium 9.5 (8.6-10.3) mg/dL Troponin I < 0.03 (< 0.04) ng/mL B-Natriuretic Peptide (Less than 100) pg/mL 02/11/19 Range/Units 18:06 WBC (4.3-11.1) K/mcL RBC (3.82-4.97) M/mcL Hgb (11.5-15.4) g/dL Hct (35.3-44.9) % MCV (83.0-100.0) fL MCH (28.0-33.3) pg MCHC (31.6-35.5) g/dL RDW (11.5-14.5) % Plt Count (140-400) K/mcL MPV (9.4-12.4) fL Immature Gran % (0-4) % Seg Neutrophils % % Lymphocytes % % Monocytes % % Eosinophils % % Basophils % % Neutrophils # (1.6-8.9) K/mcL Lymphocytes # (0.6-4.6) K/mcL Monocytes # (0.0-1.3) K/mcL Eosinophils # (0.0-0.6) K/mcL Basophils # (0.0-0.2) K/mcL Sodium (136-145) mEq/L Potassium (3.5-5.1) mEq/L Chloride (98-107) mEq/L Carbon Dioxide (23-29) mEq/L BUN (8-23) mg/dL Creatinine (0.60-1.20) mg/dL Est GFR ( Amer) (> 60) Est GFR (Non-Af Amer) (> 60) BUN/Creatinine Ratio (6-26) Glucose (70-105) mg/dL Calculated Osmolality (280-300) Lactic Acid (0.5-2.2) mmol/L Calcium (8.6-10.3) mg/dL Troponin I (< 0.04) ng/mL B-Natriuretic Peptide 26 (Less than 100) pg/mL - Radiology Data Radiology results reviewed: Yes I reviewed the patient's radiology results. Chest X-Ray 02/11/19 16:17 IMPRESSION: No acute process. D/ / Bernardo Yeung MD / Bernardo Yeung MD Interpreting Provider: Bernardo Yeung MD - EKG Data EKG attestation: Yes I reviewed and interpreted this EKG. EKG shows normal: Reports: sinus rhythm Rate: Reports: normal Rhythm: Reports: NSR [place]/QRS: Reports: left axis deviation Interpretation: Reports: no acute changes, nonspecific ST-T wave changes S.B.A.R. - S.Clary.Santiago Situation: Demographics Background: Presenting Complaint Assessment: Vital Signs, Course and respsone to treatment, Patient/Family Expectation Recommendation: Barrier(s) to disposition, Recommendation based on pending s tudies, treatments, or consults S.B.A.Partha Report Given to: Dr. Boby Cortes Repor Time: 20:46 Attestation Statement - Attestation Attestation: Resident Attestation: I examined this patient and my medical decision making was reviewed with the Resident Physician. I agree with the documented findings, disposition and treatment plan as described except to the extent set forth below. We independently had [id number] contact with the patient. Patient history of COPD on oxygen at home presenting for worsening shortness of breath started several days ago with worsening cough and associated sputum production described as yellow. Feels like previous bronchitis that has r equired admission. Patient with associated decreased breath sounds and diffuse wheezing. Patient will undergo further evaluation for COPD exacerbation versus pneumonia. Patient was using breathing treatments at home every 4 hours prior to arrival. Patient did not tolerate ambulation trial. Patient be admitted for further treatment.
[2019-02-11] MEDS ORDERED: cefTRIAXone 1,000 MG in Water for inj. (sterile) 20 ML 10 ML IVP ONE (20:27)
[2019-02-11] MEDS ORDERED: Azithromycin 500 MG in D5% in Water 250 ML IVPB ONE (20:27)
[2019-02-12] MEDS ORDERED: Naloxone 0.4 MG/ML INJ IVP PRN (02:43)
[2019-02-12] MEDS ORDERED: Dextrose Gel 15 GM/37.5 ML TUBE PO PRN ×4 (02:50→08:19)
[2019-02-12] MEDS ORDERED: *HR* Dextrose 50 % in Water (Syg) 50 ML SYRINGE IVP PRN ×2 (02:50→08:19)
[2019-02-12] MEDS ORDERED: D5% in Water 1,000 ML IVC PRN ×2 (02:50→08:19)
[2019-02-12] MEDS ORDERED: *HR* LORazepam 1 MG TABLET PO PRN (02:55)
[2019-02-12] MEDS ORDERED: *HR* HYDROcodone/Acet 5/325 mg TABLET PO PRN (02:55)
[2019-02-12] MEDS ORDERED: Azithromycin 500 MG in D5% in Water 250 ML IVPB SCH (03:00)
--- NOTE | 2019-02-12 03:20 | Internal Med History&Physical ---
Date of Encounter: 02/12/19 Time of Encounter: 02:00 Internal Medicine - H&P: HPI Chief complaint: Shortness of breath Admitted From: Home Plans for Post Hospital Care: Home History of present illness: Ms. Campa is a 68 year old female with past medical history significant for CAD, hypertension, hyperlipidemia, CHF, COPD, diabetes, renal disease, GERD, anxiety, and depression who presents for complaints of shortness of breath. States symptoms started Sunday and has gotten progressively worse. Shortness of breath is associated with frequent productive cough with thick yellow sputum and chest soreness when coughing. Denies any recent illness, fever, chills, hospitalization, or antibiotic use. Chronically wears 2lpm nasal canula continuously at home and denies any increased oxygen need. Has also been doing home breathing treatments 3 times per day for last 2 days without much improvement. Denies any other home treatment. ER reported EKG as sinus rhythm with no acute changes. ER also obtained chest xray which showed no acute process. Received antibiotics, breathing treatment, and steroids while in ER and reports she is feeling much improvement. However oxygen saturations dropped and became short of breath with ambulation in ER so admission was requested. Denies any current headache, chest pain, abdominal pain, bowel or bladder changes. Denies regularly checking blood pressures at home. Regularly checks blood sugars at home and reports they average around 200. Follows regularly with PCP, cardiology, pulmonology, and nephrology. Past Med Surg Social Fam HX - Past Medical History Medical history: CHF, COPD, coronary artery disease, diabetes, GERD, hyperlipidemia, hypertension, renal disease Additional medical history: SLEEP APNEA Psychiatric history: anxiety, depression - Past Surgical History Surgical History: appendectomy, cholecystectomy, hysterectomy, knee replacement Additional surgical history: mastoidectomy right ear - Social History Smoking Status: Former smoker Smokeless Tobacco Status: No Alcohol use: none Drug use: none - Family History Mother Living Status: Still Living Hx Family Cardiac Disorders: Yes Father Family Member Ethnicity: Non- Living Status: Hx Family Cancer: Yes Daughter Living Status: Still Living Hx Family Cardiac Disorders: Yes (HTN) Hx Family Cancer: Yes (unknown what kind) Hx Family Endocrine Disorder: Yes (DM) Internal Medicine - H&P: Meds Albuterol Neb [AccuNeb] 1.25 mg IH Q8H PRN 06/08/16 [History] Albuterol Sulfate [Albuterol Inhaler] 2 puff IH Q4HR PRN 06/08/16 [History] Allopurinol [Zyloprim 100 MG] 100 mg PO BID 06/08/16 [History] Amitriptyline [Elavil] 50 mg PO HS 06/08/16 [History] Aspirin 81 mg PO DAILY 06/08/16 [History] Atorvastatin Calcium [Lipitor] 40 mg PO HS 06/08/16 [History] HYDROcodone/Acet 5/325 mg [[place] 5-325 mg] 1 tab PO Q6H PRN 06/08/16 [History] Insulin Glargine,Hum.rec.anlog [Lantus Solostar] 100 unit SQ BID 06/08/16 [History] Isosorbide MONOnitrate (24 HR) [Imdur] 60 mg PO DAILY 06/08/16 [History] LORazepam [Ativan] 1 mg PO BID PRN 06/08/16 [History] Magnesium Oxide [Magnesium] 400 mg PO BID 06/08/16 [History] Nitroglycerin [Nitrostat] 0.4 mg SL Q5M PRN 06/08/16 [History] Tiotropium [Spiriva] 18 mcg IH 0700 06/08/16 [History] metFORMIN [Glucophage] 500 mg PO BIDWM 06/08/16 [History] Multivitamin [Multi-Day Vitamins] 1 each PO DAILY 05/22/17 [History] Omeprazole [PriLOSEC] 40 mg PO DAILY #30 cap 05/23/17 [Rx] Duloxetine HCl [Cymbalta] 60 mg PO BID 03/02/18 [History] Ramelteon [Rozerem] 8 mg PO HS 03/03/18 [History] Metoprolol [Lopressor] 25 mg PO BID #60 tablet 03/05/18 [Rx] Insulin ASPART [NovoLOG] 20 unit SQ TIDWM 02/11/19 [History] Allergy/AdvReac Type Severity Reaction Status Date / Time indomethacin [From Indocin] AdvReac See Verified 08/09/16 19:54 Comments sulfamethoxazole AdvReac Gastrointestinal Verified 08/09/16 19:54 [From Bactrim] Upset trimethoprim [From Bactrim] AdvReac Gastrointestinal Verified 08/09/16 19:54 Upset All Systems PM: A 10-system review of systems was performed and is negative for pertinent findings except as documented above in the HPI. - Constitutional Vitals: Temp Pulse Resp BP Pulse Ox 98.7 F 104 16 123/73 93 02/11/19 22:27 02/11/19 22:27 02/11/19 22:27 02/11/19 22:27 02/11/19 22:27 Exam: General: Alert and oriented. Calm. No acute distress. Skin:Normal color, no rash, no lesions. HEENT:Pupils equal, round and reactive. Cardiovascular:Heart sounds distant, no rubs, murmurs or gallops. No JVD. Pulse regular. Lungs:Breath sounds decreased, wheezes noted throughout. Abdomen:Soft, round, non-tender, no rigidity. Extremities:No deformity, no edema or tenderness, no joint swelling or clubbing. Neurological:Normal cognition and motor skills. Pulses:Carotid and radial pulses normal +2. Rest of the physical exam is non contributory. Internal Med - H&P Results - Labs CBC & Chem 7: 02/11/19 18:06 02/11/19 18:06 Labs: Short CBC 02/11/19 Range/Units 18:06 WBC 6.2 (4.3-11.1) K/mcL Hgb 10.1 L (11.5-15.4) g/dL Hct 32.1 L (35.3-44.9) % Plt Count 168 (140-400) K/mcL Neutrophils # 4.7 (1.6-8.9) K/mcL BMP 02/11/19 18:06 Sodium 134 L Potassium 4.5 Chloride 98 Carbon Dioxide 26 BUN 25 H Creatinine 1.09 Glucose 262 H Calcium 9.5 Cardiac Enzymes 02/11/19 Range/Units 18:06 Troponin I < 0.03 (< 0.04) ng/mL - Impressions ITS Impressions Chest X-Ray 02/11/19 16:17 IMPRESSION: No acute process. D/ / Bernardo Yeung MD / Bernardo Yeung MD Interpreting Provider: Bernardo Yeung MD - Assessment and Plan (1) COPD exacerbation Current Visit: Yes Status: Acute Assessment and plan: Received duoneb in ER, will continue same scheduled. Received steroids in ER, will continue same daily. Received Azithromycin and Ceftriaxone in ER, will continue same. No cultures obtained prior to initial antibiotics, cultures ordered. Continuous pulse oximetry. Currently on home 02 at 2lpm. (2) Shortness of breath Current Visit: Yes Status: Acute Assessment and plan: Likely secondary to COPD exacerbation. Reports improvement after initial treatment in ER. Chest xray shows no acute process. Plan as stated above. (3) Serum sodium decreased Current Visit: Yes Status: Acute Assessment and plan: Likely secondary to elevated blood glucose. Repeat labs ordered. (4) CKD (chronic kidney disease) Current Visit: No Status: Chronic Assessment and plan: BUN slightly elevated from baseline, GFR improved from baseline, creatinine within normal limits. Repeat labs ordered. Avoid nephrotoxins when possible. Qualifiers: Chronic kidney disease stage: unspecified stage Qualified Code(s): N18.9 - Chronic kidney disease, unspecified (5) Diabetes mellitus Current Visit: Yes Status: Chronic Assessment and plan: Hold home diabetic medications. High dose sliding scale insulin ordered. Accucheck ACHS. Diabetic diet. Qualifiers: Diabetes mellitus type: type 2 Qualified Code(s): E11.9 - Type 2 diabetes mellitus without complications; Z79.4 - FDC (current) use of insulin (6) Anemia Current Visit: Yes Status: Chronic Assessment and plan: Baseline hemoglobin 10-11, currently 10.2 Repeat labs ordered. Qualifiers: Anemia type: unspecified type Qualified Code(s): D64.9 - Anemia, unspecifie d - Time Spent With Patient Total time spent is greater than 50% in coordination of care (as documented) at patient's floor/unit and/or counseling patient:
[2019-02-12] MEDS: Ipratropium/Albuterol Neb 3 ML IH SCH ×2 (03:49→11:15)
[2019-02-12 04:10] LABS: Basophils % 0.2 %; Eosinophils % 0.2 %; Hematocrit 30.6 % (35.3-44.9); Hemoglobin 9.8 g/dL (11.5-15.4); Immature Granulocytes % 0.7 % (0-4); Lymphocytes # 0.4 K/mcL (0.6-4.6); Lymphocytes % 7.2 %; Mean Corpuscular Hemoglobin 31.3 pg (28.0-33.3); Mean Corpuscular Volume 97.8 fL (83.0-100.0); Mean Platelet Volume 10.3 fL (9.4-12.4); Monocytes # 0.1 K/mcL (0.0-1.3); Monocytes % 1.5 %; Neutrophils # 5.5 K/mcL (1.6-8.9); Platelet Count 156 K/mcL (140-400); Red Blood Count 3.13 M/mcL (3.82-4.97); Segmented Neutrophils % 90.2 %
[2019-02-12 04:32] LABS: Calcium 9.4 mg/dL (8.6-10.3); Potassium 4.9 mEq/L (3.5-5.1)
[2019-02-12] MEDS ORDERED: Insulin LISPRO 300 UNITS/3 ML VIAL SQ ONE ×2 (04:37→05:47)
[2019-02-12] MEDS ORDERED: Ondansetron 4 MG/2 ML VIAL IVP ONE (04:42)
[2019-02-12] MEDS ORDERED: Insulin LISPRO 300 UNITS/3 ML VIAL SQ SCH ×3 (07:30→12:00)
--- NOTE | 2019-02-12 08:44 | Electrocardiograph Report ---
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
[2019-02-12] MEDS ORDERED: Isosorbide MONOnitrate (24 HR) 60 MG TAB.ER.24H PO SCH (09:00)
[2019-02-12] MEDS ORDERED: predniSONE 20 MG TABLET PO SCH (09:00)
[2019-02-12] MEDS ORDERED: Aspirin 81 MG TAB.CHEW PO SCH (09:00)
[2019-02-12] MEDS ORDERED: NON-FORMULARY MEDICATION 1 EACH EACH (Duloxetine Hcl [Cymbalta] 60 MG) PO SCH (09:00)
[2019-02-12] MEDS ORDERED: cefTRIAXone 1,000 MG in Water for inj. (sterile) 20 ML 10 ML IVP SCH (09:00)
[2019-02-12] MEDS ORDERED: Insulin DETEMIR 100 UNIT/ML X5UNITS SQ SCH (09:00)
[2019-02-12] MEDS ORDERED: Multivit/Ca/Min/Fe/FA 1 TAB TABLET PO SCH (09:00)
[2019-02-12] MEDS ORDERED: Magnesium Oxide 400 MG TABLET PO SCH (09:00)
[2019-02-12 11:17] VITALS: BP 117/67
--- NOTE | 2019-02-12 12:42 | Discharge Summary ---
- NOTES TO OUTPATIENT PROVIDER Notes to Outpatient Provider: f/u with PCP in one week. Orders not resulted at time of discharge: Pending orders 02/12/19 03:45 Culture,Blood [BC] Stat 02/12/19 08:00 Sputum Culture [Culture,Sputum with Gram Stain] [] Stat Date of Encounter: 02/12/19 Time of Encounter: 11:45 - Discharge Diagnosis (1) Acute bronchitis Priority: Primary Status: Acute Qualifiers: Bronchitis organism: unspecified organism Qualified Code(s): J20.9 - Acute bronchitis, unspecified (2) COPD exacerbation Priority: Primary Status: Acute (3) Shortness of breath Priority: Primary Status: Acute (4) CKD (chronic kidney disease) Priority: Secondary Status: Chronic Qualifiers: Chronic kidney disease stage: unspecified stage Qualified Code(s): N18.9 - Chronic kidney disease, unspecified (5) Anemia Priority: Secondary Status: Chronic Qualifiers: Anemia type: unspecified type Qualified Code(s): D64.9 - Anemia, unspecified (6) Diabetes mellitus Priority: Secondary Status: Chronic Qualifiers: Diabetes mellitus type: type 2 Qualified Code(s): E11.9 - Type 2 diabetes mellitus without complications; 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 Campa is a 68 year old female with past medical history significant for CAD, hypertension, hyperlipidemia, Diastolic CHF, COPD, diabetes, CKD-3, GERD, COPD, chronic hypoxic respiratory failure on 2 lit O2 at home, anxiety, and depression who presented to ER with progressively worsening SOB, MOTT and cough with exacerbation. She was admitted in the hospital and started her on hihg dose IV steroids and empirical abx Rocephin + Azihromycin. Pt stated she is feeling better and feels like back to baseline. So will d/c her home in stable condition today. She had uncontrolled BS initially due to steroids, which improved now with resuming her regular home insulin regimen. Will d/c her home with PO tapering dose steroids and empirical abx Levaquin. - Time Spent with Patient Total time spent providing and/or coordinating discharge services: - Discharge Medications Prescriptions: New levoFLOXacin [Levaquin] 500 mg PO DAILY #3 tablet predniSONE [PredniSONE] 40 mg PO DAILY #10 tablet Continued Tiotropium [Spiriva] 18 mcg IH 0700 Magnesium Oxide [Magnesium] 400 mg PO BID LORazepam [Ativan] 1 mg PO BID PRN PRN Reason: Anxiety Isosorbide MONOnitrate (24 HR) [Imdur] 60 mg PO DAILY Insulin Glargine,Hum.rec.anlog [Lantus Solostar] 100 unit SQ BID Atorvastatin Calcium [Lipitor] 40 mg PO HS Aspirin 81 mg PO DAILY Amitriptyline [Elavil] 50 mg PO HS Allopurinol [Zyloprim 100 MG] 100 mg PO BID Albuterol Sulfate [Albuterol Inhaler] 2 puff IH Q4HR PRN PRN Reason: Shortness Of Breath Nitroglycerin [Nitrostat] 0.4 mg SL Q5M PRN PRN Reason: Chest Pain metFORMIN [Glucophage] 500 mg PO BIDWM Albuterol Neb [AccuNeb] 1.25 mg IH Q8H PRN PRN Reason: Shortness Of Breath HYDROcodone/Acet 5/325 mg [[place] 5-325 mg] 1 tab PO Q6H PRN PRN Reason: Mild Pain Multivitamin [Multi-Day Vitamins] 1 each PO DAILY Omeprazole [PriLOSEC] 40 mg PO DAILY #30 cap Duloxetine HCl [Cymbalta] 60 mg PO BID Ramelteon [Rozerem] 8 mg PO HS Metoprolol [Lopressor] 25 mg PO BID #60 tablet Insulin ASPART [NovoLOG] 20 unit SQ TIDWM Home Medications: Albuterol Neb [AccuNeb] 1.25 mg IH Q8H PRN 06/08/16 [History] Albuterol Sulfate [Albuterol Inhaler] 2 puff IH Q4HR PRN 06/08/16 [History] Allopurinol [Zyloprim 100 MG] 100 mg PO BID 06/08/16 [History] Amitriptyline [Elavil] 50 mg PO HS 06/08/16 [History] Aspirin 81 mg PO DAILY 06/08/16 [History] Atorvastatin Calcium [Lipitor] 40 mg PO HS 06/08/16 [History] HYDROcodone/Acet 5/325 mg [[place] 5-325 mg] 1 tab PO Q6H PRN 06/08/16 [History] Insulin Glargine,Hum.rec.anlog [Lantus Solostar] 100 unit SQ BID 06/08/16 [History] Isosorbide MONOnitrate (24 HR) [Imdur] 60 mg PO DAILY 06/08/16 [History] LORazepam [Ativan] 1 mg PO BID PRN 06/08/16 [History] Magnesium Oxide [Magnesium] 400 mg PO BID 06/08/16 [History] Nitroglycerin [Nitrostat] 0.4 mg SL Q5M PRN 06/08/16 [History] Tiotropium [Spiriva] 18 mcg IH 0700 06/08/16 [History] metFORMIN [Glucophage] 500 mg PO BIDWM 06/08/16 [History] Multivitamin [Multi-Day Vitamins] 1 each PO DAILY 05/22/17 [History] Omeprazole [PriLOSEC] 40 mg PO DAILY #30 cap 05/23/17 [Rx] Duloxetine HCl [Cymbalta] 60 mg PO BID 03/02/18 [History] Ramelteon [Rozerem] 8 mg PO HS 03/03/18 [History] Metoprolol [Lopressor] 25 mg PO BID #60 tablet 03/05/18 [Rx] Insulin ASPART [NovoLOG] 20 unit SQ TIDWM 02/11/19 [History] levoFLOXacin [Levaquin] 500 mg PO DAILY #3 tablet 02/12/19 [Rx] predniSONE [PredniSONE] 40 mg PO DAILY #10 tablet 02/12/19 [Rx] Allergies/Adverse Reactions: Allergy/AdvReac Type Severity Reaction Status Date / Time indomethacin [From Indocin] AdvReac See Verified 08/09/16 19:54 Comments sulfamethoxazole AdvReac Gastrointestinal Verified 08/09/16 19:54 [From Bactrim] Upset trimethoprim [From Bactrim] AdvReac Gastrointestinal Verified 08/09/16 19:54 Upset Date of admission: 02/11/19 21:10 Primary care physician: Carole Spears DO Consults: 02/12/19 10:18 Consult to Nurse Navigator [CONS] Routine Comment: COPD - Constitutional Vitals: Temp Pulse Resp BP Pulse Ox 98.4 F 79 16 117/67 96 02/12/19 11:16 02/12/19 11:16 02/12/19 11:20 02/12/19 11:16 02/12/19 11:20 General appearance: Present: A&O X 3, no acute distress, answers questions appropriately Exam: Gen: Alert, awake, Oriented to time,place and person Chest: Diminished breath sounds B/L, Moderate wheezing, No crackles, No rales Heart: S1S2+ RRR No murmurs Abd: Soft, NT, BS +, No organomegaly Ext: trace edema, pulses are palpable, No calf tenderness Neuro : Benign findings Skin: No rash. - Patient Status Disposition: Home, Self-Care Condition: Good Overall status at discharge: patient is back to baseline - Discharge Instructions Follow Up With: Carole Spears DO [Primary Care Provider] - - Diet and Activity Activity: increase activity as tolerated, wear oxygen at all times Diet: low salt diet
== END 2019-02-12 14:15 | disposition home or self-care (01) ==
LOC: 3BNU 16:10 → EMEROOARM 16:10 → SUATTDRO 21:10 → 3BNU 22:17
PROVIDERS: ADMIT Pediatrics; ATTEND Family Medicine

== ENCOUNTER 2019-08-25 14:07 | Inpatient (IN) ==
[2019-08-25] MEDS ORDERED: Ondansetron 4 MG/2 ML VIAL IVP ONE (14:24)
[2019-08-25 14:44] LABS: Basophils % 0.3 %; Eosinophils # 0.1 K/mcL (0.0-0.6); Eosinophils % 1.9 %; Immature Granulocytes % 0.5 % (0-4); Lymphocytes # 0.7 K/mcL (0.6-4.6); Lymphocytes % 11.9 %; Mean Corpuscular HGB Conc 33.3 g/dL (31.6-35.5); Mean Corpuscular Hemoglobin 32.4 pg (28.0-33.3); Mean Corpuscular Volume 97.1 fL (83.0-100.0); Mean Platelet Volume 9.7 fL (9.4-12.4); Monocytes # 0.4 K/mcL (0.0-1.3); Monocytes % 6.6 %; Neutrophils # 4.6 K/mcL (1.6-8.9); Platelet Count 145 K/mcL (140-400); Red Cell Distribution Width 14.1 % (11.5-14.5); Segmented Neutrophils % 78.8 %; White Blood Count 5.8 K/mcL (4.3-11.1)
[2019-08-25 14:48] LABS: INR 1.1; Prothrombin Time 12.9 Seconds (9.4-12.1)
[2019-08-25 14:50] LABS: Activated Partial Thrombo Time 36.4 Seconds (26.0-36.0)
[2019-08-25] MEDS ORDERED: Nitroglycerin 0.4 MG TAB.SUBL SL STA (14:57)
[2019-08-25 15:06] LABS: Alanine Aminotransferase 47 Units/L (7-52); Albumin 3.7 g/dL (3.5-5.7); Albumin/Globulin Ratio 0.9 (1.1-2.2); Alkaline Phosphatase 145 Units/L (34-104); Bilirubin,Total 0.8 mg/dL (0.3-1.0); Globulin 3.9 g/dL (2.4-3.5); Total Protein 7.6 g/dL (6.4-8.9)
[2019-08-25 15:13] LABS: BUN/Creatinine Ratio 16 (6-26); Blood Urea Nitrogen 18 mg/dL (8-23); Calcium 9.3 mg/dL (8.6-10.3); Carbon Dioxide 27 mEq/L (23-29); Chloride 101 mEq/L (98-107); Glucose 207 mg/dL (70-105); Osmolality,Calculated 294 (280-300); Sodium 138 mEq/L (136-145); eGFR For African Americans 59 (> 60); eGFR For Non-African Americans 48 (> 60)
[2019-08-25 15:14] LABS: Troponin I < 0.03 ng/mL (< 0.04)
[2019-08-25] MEDS ORDERED: Naloxone 0.4 MG/ML INJ IVP PRN (16:57)
[2019-08-25] MEDS ORDERED: Dextrose Gel 15 GM/37.5 ML TUBE PO PRN ×2 (17:04)
[2019-08-25] MEDS ORDERED: D5% in Water 1,000 ML IVC PRN (17:04)
[2019-08-25] MEDS ORDERED: *HR* Dextrose 50 % in Water (Syg) 50 ML SYRINGE IVP PRN (17:04)
[2019-08-25] MEDS ORDERED: Acetaminophen 325 MG TABLET PO PRN (17:31)
[2019-08-25 17:34] LABS: Estimated Average Glucose 186 mg/dl
[2019-08-25] MEDS: Ipratropium/Albuterol Neb 3 ML IH SCH ×2 (20:05→23:16)
[2019-08-25] MEDS: Budesonide/Formoterol 160/4.5 1 PUFF INH IH SCH (20:05)
[2019-08-25] MEDS: Insulin LISPRO 300 UNITS/3 ML VIAL SQ SCH (21:28)
[2019-08-25] MEDS: Insulin DETEMIR 100 UNIT/ML X5UNITS SQ SCH (21:28)
[2019-08-25] MEDS: *HR* Heparin 5,000 UNIT/ML VIAL SQ SCH (21:37)
[2019-08-26 02:20] LABS: Bilirubin,Urine Small (Negative); Blood,Urine Negative (Negative); Clarity,Urine Clear (Clear); Color,Urine Yellow (Yellow); Glucose,Urine (UA) 100 mg/dL (Normal); Ketones,Urine Negative (Negative); Leukocyte Esterase,Urine Trace (Negative); Nitrite,Urine Negative (Negative); PH,Urine 5.5 pH Units (5.0-8.0); Protein,Urine 30 mg/dL (Neg-Trace); Specific Gravity,Urine 1.028 (1.010-1.025); Urobilinogen,Urine Normal (Normal)
[2019-08-26 02:22] LABS: Bacteria,Urine Moderate per hpf (None-Few); Hyaline Casts,Urine None Seen per lpf (None-Few); Squamous Epithelial Cell,Urine Many per lpf (None-Few)
[2019-08-26] MEDS: Ipratropium/Albuterol Neb 3 ML IH SCH ×4 (03:58→15:24)
[2019-08-26 04:51] LABS: Basophils % 0.2 %; Eosinophils # 0.1 K/mcL (0.0-0.6); Eosinophils % 1.8 %; Hemoglobin 10.7 g/dL (11.5-15.4); Immature Granulocytes % 0.5 % (0-4); Lymphocytes # 0.9 K/mcL (0.6-4.6); Lymphocytes % 14.8 %; Mean Corpuscular HGB Conc 32.4 g/dL (31.6-35.5); Mean Corpuscular Hemoglobin 32.3 pg (28.0-33.3); Mean Corpuscular Volume 99.7 fL (83.0-100.0); Mean Platelet Volume 10.3 fL (9.4-12.4); Monocytes # 0.5 K/mcL (0.0-1.3); Monocytes % 8.4 %; Neutrophils # 4.7 K/mcL (1.6-8.9); Platelet Count 153 K/mcL (140-400); Red Blood Count 3.31 M/mcL (3.82-4.97); Red Cell Distribution Width 14.5 % (11.5-14.5); Segmented Neutrophils % 74.3 %; White Blood Count 6.3 K/mcL (4.3-11.1)
[2019-08-26 05:05] LABS: Magnesium 1.6 mg/dL (1.6-2.6); Phosphorous 4.1 mg/dL (2.7-4.5); Potassium 4.1 mEq/L (3.5-5.1)
[2019-08-26] MEDS: *HR* Heparin 5,000 UNIT/ML VIAL SQ SCH ×2 (05:48→16:46)
[2019-08-26] MEDS ORDERED: Regadenoson 0.4 MG/5 ML SYRINGE IVP ONE (06:07)
[2019-08-26] MEDS: Budesonide/Formoterol 160/4.5 1 PUFF INH IH SCH ×2 (07:25→21:22)
[2019-08-26] MEDS: Tiotropium 18 MCG inhalation IH SCH (07:25)
[2019-08-26] MEDS: Insulin LISPRO 300 UNITS/3 ML VIAL SQ SCH ×6 (08:35→16:47)
[2019-08-26] MEDS ORDERED: Aspirin 81 MG TAB.CHEW PO SCH (09:00)
[2019-08-26] MEDS: Isosorbide MONOnitrate (24 HR) 60 MG TAB.ER.24H PO SCH (10:06)
[2019-08-26] MEDS: Insulin DETEMIR 100 UNIT/ML X5UNITS SQ SCH ×2 (10:07→21:43)
[2019-08-26] MEDS ORDERED: tiZANidine 4 MG TABLET PO PRN (11:53)
[2019-08-26] MEDS ORDERED: Ipratropium/Albuterol Neb 3 ML IH PRN (15:32)
[2019-08-26] MEDS: traMADol 50 MG TABLET PO PRN (15:44)
[2019-08-27] MEDS ORDERED: Ondansetron ODT 4 MG TAB.RAPDIS SL ONE (01:42)
[2019-08-27] MEDS: *HR* Heparin 5,000 UNIT/ML VIAL SQ SCH ×2 (05:35→16:58)
[2019-08-27] MEDS: Budesonide/Formoterol 160/4.5 1 PUFF INH IH SCH ×2 (07:06→21:09)
[2019-08-27] MEDS: Tiotropium 18 MCG inhalation IH SCH (07:07)
[2019-08-27] MEDS: Insulin LISPRO 300 UNITS/3 ML VIAL SQ SCH ×6 (07:46→16:57)
[2019-08-27] MEDS: Aspirin Enteric Coated 81 MG Tablet PO SCH (08:31)
[2019-08-27] MEDS: Isosorbide MONOnitrate (24 HR) 60 MG TAB.ER.24H PO SCH (08:31)
[2019-08-27] MEDS: Insulin DETEMIR 100 UNIT/ML X5UNITS SQ SCH ×2 (08:39→21:55)
[2019-08-27] MEDS ORDERED: Albuterol Neb 1.25 MG/3 ML VIAL IH PRN (11:19)
[2019-08-27] MEDS ORDERED: 0.9 % Sodium Chloride 1,000 ML IVC SCH (11:30)
[2019-08-27] MEDS: traMADol 50 MG TABLET PO PRN (16:58)
[2019-08-27] MEDS: Magnesium Oxide 400 MG TABLET PO SCH (21:50)
[2019-08-28 02:00] LABS: Basophils % 0.3 %; Eosinophils # 0.1 K/mcL (0.0-0.6); Hematocrit 33.3 % (35.3-44.9); Hemoglobin 10.6 g/dL (11.5-15.4); Immature Granulocytes % 0.5 % (0-4); Lymphocytes # 0.9 K/mcL (0.6-4.6); Lymphocytes % 13.3 %; Mean Corpuscular HGB Conc 31.8 g/dL (31.6-35.5); Mean Corpuscular Hemoglobin 32.2 pg (28.0-33.3); Mean Corpuscular Volume 101.2 fL (83.0-100.0); Mean Platelet Volume 10.2 fL (9.4-12.4); Monocytes # 0.5 K/mcL (0.0-1.3); Monocytes % 7.5 %; Neutrophils # 4.9 K/mcL (1.6-8.9); Platelet Count 158 K/mcL (140-400); Red Blood Count 3.29 M/mcL (3.82-4.97); Segmented Neutrophils % 76.4 %; White Blood Count 6.4 K/mcL (4.3-11.1)
[2019-08-28 02:20] LABS: Calcium 9.3 mg/dL (8.6-10.3); Potassium 4.5 mEq/L (3.5-5.1)
[2019-08-28] MEDS: *HR* Heparin 5,000 UNIT/ML VIAL SQ SCH (06:05)
[2019-08-28 07:45] VITALS: BP 145/73
[2019-08-28] MEDS: Budesonide/Formoterol 160/4.5 1 PUFF INH IH SCH (07:45)
[2019-08-28] MEDS: Tiotropium 18 MCG inhalation IH SCH (07:46)
[2019-08-28] MEDS: Isosorbide MONOnitrate (24 HR) 60 MG TAB.ER.24H PO SCH (08:15)
[2019-08-28] MEDS: Magnesium Oxide 400 MG TABLET PO SCH (08:15)
[2019-08-28] MEDS: Aspirin Enteric Coated 81 MG Tablet PO SCH (08:15)
[2019-08-28] MEDS: Insulin LISPRO 300 UNITS/3 ML VIAL SQ SCH ×2 (08:19)
[2019-08-28] MEDS ORDERED: VITAMIN A PO SCH (09:00)
[2019-08-28] MEDS ORDERED: Cyanocobalamin (B-12) 1,000 MCG TABLET PO SCH (09:00)
[2019-08-28] MEDS ORDERED: Multivit/Ca/Min/Fe/FA 1 TAB TABLET PO SCH (09:00)
[2019-08-28] MEDS: Insulin DETEMIR 100 UNIT/ML X5UNITS SQ SCH (10:22)
== END 2019-08-28 11:34 | disposition home or self-care (01) | DRG 313 ==
LOC: EMEROOARM 14:07 → 3BNU 14:07 → SUATTDRO 17:07 → 3BNU 18:15
PROVIDERS: ADMIT Student in an Organized Health Care Education/Training Program; ATTEND Internal Medicine

== ENCOUNTER 2021-09-08 16:17 | Inpatient (IN) ==
[2021-09-08] MEDS ORDERED: Naloxone 0.4 MG/ML INJ IVP PRN (22:19)
[2021-09-08] MEDS ORDERED: *HR* Promethazine 25 MG/ML VIAL IM PRN (22:24)
[2021-09-08] MEDS ORDERED: Melatonin 3 MG TABLET PO PRN (22:24)
[2021-09-08] MEDS ORDERED: Dextrose Gel 15 GM/37.5 ML TUBE PO PRN ×2 (23:35)
[2021-09-08] MEDS ORDERED: *HR* Dextrose 50 % in Water (Syg) 50 ML SYRINGE IVP PRN (23:35)
[2021-09-08] MEDS ORDERED: D5% in Water 1,000 ML IVC PRN (23:35)
[2021-09-08] MEDS ORDERED: traZODone 50 MG TABLET PO PRN (23:36)
[2021-09-08] MEDS ORDERED: Ipratropium/Albuterol Neb 3 ML IH PRN (23:36)
[2021-09-08] MEDS: Furosemide 20 MG/2 ML VIAL IVP SCH (23:42)
[2021-09-09] MEDS ORDERED: Saliva Stimulant 44.3ml BOTTLE PO PRN (00:06)
[2021-09-09] MEDS ORDERED: Saline Nasal Spray 44 ML BOTTLE NS PRN (00:08)
[2021-09-09] MEDS ORDERED: Artificial Tears SOLN 15 ML BOTTLE BOTH EYES PRN (00:08)
[2021-09-09 01:16] LABS: Adenovirus Not Detected (Not Detect); Bordetella Pertussis Not Detected (Not Detect); Chlamydophila pneumoniae Not Detected (Not Detect); Coronavirus 229E Not Detected (Not Detect); Coronavirus HKU1 Not Detected (Not Detect); Coronavirus NL63 Not Detected (Not Detect); Coronavirus OC43 Not Detected (Not Detect); Human Metapneumovirus Not Detected (Not Detect); Human Rhinovirus/Enterovirus DETECTED (Not Detect); Influenza A Subtype 2009 H1 Not Detected (Not Detect); Influenza B Not Detected (Not Detect); Mycoplasma pneumoniae Not Detected (Not Detect); Parainfluenza Virus 1 Not Detected (Not Detect); Parainfluenza Virus 2 Not Detected (Not Detect); Parainfluenza Virus 3 Not Detected (Not Detect); Parainfluenza Virus 4 Not Detected (Not Detect); Respiratory Syncytial Virus Not Detected (Not Detect); SARS-CoV-2 Not Detected (Not Detect)
[2021-09-09 02:50] LABS: Hemoglobin 7.8 g/dL (11.5-15.4); Mean Corpuscular Hemoglobin 32.1 pg (28.0-33.3); Mean Platelet Volume 10.3 fL (9.4-12.4); Platelet Count 140 K/mcL (140-400); Red Blood Count 2.43 M/mcL (3.82-4.97); Red Cell Distribution Width 17.6 % (11.5-14.5); White Blood Count 6.2 K/mcL (4.3-11.1)
[2021-09-09 02:56] LABS: INR 1.3; Prothrombin Time 14.1 Seconds (9.4-12.1); Prothrombin Time 14.3 Seconds (9.4-12.1)
[2021-09-09 03:14] LABS: Magnesium 1.6 mg/dL (1.6-2.6); Magnesium 1.7 mg/dL (1.6-2.6); Phosphorous 4.1 mg/dL (2.7-4.5); Phosphorous 4.3 mg/dL (2.7-4.5); Potassium 4.3 mEq/L (3.5-5.1)
[2021-09-09 03:15] LABS: Chol/HDL Ratio 3.5 (0-4.9)
[2021-09-09 03:18] LABS: Iron 47 mcg/dL (50-170)
[2021-09-09 03:29] LABS: Thyroid Stimulating Hormone 5.404 mcIU/mL (0.340-5.600)
[2021-09-09 03:34] LABS: Ferritin 34 ng/mL (10-120)
[2021-09-09 03:40] LABS: Folate 14.8 ng/mL (3.0-16.0)
[2021-09-09] MEDS: Budesonide/Formoterol 160/4.5 1 PUFF INH IH SCH ×2 (08:17→20:56)
[2021-09-09] MEDS: Furosemide 20 MG/2 ML VIAL IVP SCH ×2 (08:38→16:40)
[2021-09-09] MEDS: Chlorhexidine Rinse 15 ML MOUTHWASH MM SCH ×2 (08:38→20:11)
[2021-09-09] MEDS: Azithromycin 250 MG TABLET PO SCH (08:38)
[2021-09-09] MEDS: predniSONE 20 MG TABLET PO SCH (08:38)
[2021-09-09] MEDS: Insulin LISPRO 300 UNITS/3 ML VIAL SUBQ SCH ×3 (08:39→16:40)
[2021-09-09] MEDS: Fluticasone Propionate Nasal 50 MCG/SPRAY BOTTLE NS SCH (12:16)
[2021-09-09] MEDS ORDERED: Perflutren Lipid Microsphere 1.3 ML in 0.9 % Sodium Chloride 8.7 ML IVP PRN (13:50)
[2021-09-09] MEDS: Gabapentin 300 MG CAPSULE PO SCH ×2 (16:39→20:10)
[2021-09-09] MEDS: Metoprolol 100 MG TABLET PO SCH (20:10)
[2021-09-09] MEDS: allopurinoL 100 MG TABLET PO SCH (20:10)
[2021-09-09] MEDS: Magnesium Oxide 400 MG TABLET PO SCH (20:10)
[2021-09-10 01:00] LABS: Basophils % 0.3 %; Eosinophils # 0.1 K/mcL (0.0-0.6); Eosinophils % 0.7 %; Hematocrit 29.9 % (35.3-44.9); Hemoglobin 8.9 g/dL (11.5-15.4); Immature Granulocytes % 0.5 % (0-4); Lymphocytes % 10.3 %; Mean Corpuscular HGB Conc 29.8 g/dL (31.6-35.5); Mean Corpuscular Hemoglobin 31.3 pg (28.0-33.3); Mean Corpuscular Volume 105.3 fL (83.0-100.0); Mean Platelet Volume 10.3 fL (9.4-12.4); Monocytes # 0.6 K/mcL (0.0-1.3); Monocytes % 6.6 %; Neutrophils # 7.5 K/mcL (1.6-8.9); Platelet Count 166 K/mcL (140-400); Red Blood Count 2.84 M/mcL (3.82-4.97); Red Cell Distribution Width 17.3 % (11.5-14.5); Segmented Neutrophils % 81.6 %; White Blood Count 9.2 K/mcL (4.3-11.1)
[2021-09-10 01:15] LABS: Calcium 9.5 mg/dL (8.6-10.3)
[2021-09-10] MEDS: Insulin LISPRO 300 UNITS/3 ML VIAL SUBQ SCH ×3 (08:01→16:19)
[2021-09-10] MEDS: Furosemide 20 MG/2 ML VIAL IVP SCH ×2 (08:01→16:18)
[2021-09-10] MEDS: Fluticasone Propionate Nasal 50 MCG/SPRAY BOTTLE NS SCH (08:01)
[2021-09-10] MEDS: Isosorbide MONOnitrate (24 HR) 60 MG TAB.ER.24H PO SCH (08:02)
[2021-09-10] MEDS: Metoprolol 100 MG TABLET PO SCH ×2 (08:02→21:05)
[2021-09-10] MEDS: predniSONE 20 MG TABLET PO SCH (08:02)
[2021-09-10] MEDS: allopurinoL 100 MG TABLET PO SCH ×2 (08:02→21:05)
[2021-09-10] MEDS: Aspirin Enteric Coated 81 MG Tablet PO SCH (08:02)
[2021-09-10] MEDS: Gabapentin 300 MG CAPSULE PO SCH ×3 (08:02→21:05)
[2021-09-10] MEDS: Azithromycin 250 MG TABLET PO SCH (08:02)
[2021-09-10] MEDS: Magnesium Oxide 400 MG TABLET PO SCH ×2 (08:02→21:05)
[2021-09-10] MEDS: Cyanocobalamin (B-12) 1,000 MCG TABLET PO SCH (08:02)
[2021-09-10] MEDS: Chlorhexidine Rinse 15 ML MOUTHWASH MM SCH ×2 (08:02→21:05)
[2021-09-10] MEDS ORDERED: NON-FORMULARY MEDICATION 1 EACH EACH (Omeprazole [Prilosec] 40 MG Capsule.Dr) PO SCH (09:00)
[2021-09-10] MEDS: Acetaminophen 325 MG TABLET PO PRN (09:53)
[2021-09-10] MEDS: Budesonide/Formoterol 160/4.5 1 PUFF INH IH SCH ×2 (10:46→19:39)
[2021-09-10] MEDS: Tiotropium 10 INH DOSE IH SCH (10:46)
[2021-09-10] MEDS: cefTRIAXone 1,000 MG in Water for inj. (sterile) 10 ML IVP SCH (10:59)
[2021-09-11 01:14] LABS: Basophils % 0.4 %; Eosinophils % 0.5 %; Hematocrit 23.8 % (35.3-44.9); Immature Granulocytes % 0.5 % (0-4); Lymphocytes # 0.9 K/mcL (0.6-4.6); Lymphocytes % 11.3 %; Mean Corpuscular HGB Conc 30.7 g/dL (31.6-35.5); Mean Corpuscular Volume 104.4 fL (83.0-100.0); Mean Platelet Volume 10.1 fL (9.4-12.4); Monocytes # 0.5 K/mcL (0.0-1.3); Monocytes % 6.6 %; Neutrophils # 6.1 K/mcL (1.6-8.9); Platelet Count 130 K/mcL (140-400); Red Blood Count 2.28 M/mcL (3.82-4.97); Red Cell Distribution Width 17.1 % (11.5-14.5); Segmented Neutrophils % 80.7 %; White Blood Count 7.6 K/mcL (4.3-11.1)
[2021-09-11 01:19] LABS: Hemoglobin 7.3 g/dL (11.5-15.4)
[2021-09-11 01:25] LABS: Calcium 8.8 mg/dL (8.6-10.3); Potassium 4.2 mEq/L (3.5-5.1)
[2021-09-11] MEDS: Magnesium Oxide 400 MG TABLET PO SCH ×2 (07:59→21:34)
[2021-09-11] MEDS: Chlorhexidine Rinse 15 ML MOUTHWASH MM SCH ×2 (07:59→21:35)
[2021-09-11] MEDS: Aspirin Enteric Coated 81 MG Tablet PO SCH (07:59)
[2021-09-11] MEDS: allopurinoL 100 MG TABLET PO SCH ×2 (07:59→21:34)
[2021-09-11] MEDS: predniSONE 20 MG TABLET PO SCH (07:59)
[2021-09-11] MEDS: Metoprolol 100 MG TABLET PO SCH ×2 (07:59→21:34)
[2021-09-11] MEDS: Gabapentin 300 MG CAPSULE PO SCH ×3 (07:59→21:34)
[2021-09-11] MEDS: Azithromycin 250 MG TABLET PO SCH (08:00)
[2021-09-11] MEDS: Isosorbide MONOnitrate (24 HR) 60 MG TAB.ER.24H PO SCH (08:00)
[2021-09-11] MEDS: Cyanocobalamin (B-12) 1,000 MCG TABLET PO SCH (08:00)
[2021-09-11] MEDS: Furosemide 20 MG/2 ML VIAL IVP SCH ×2 (08:00→16:48)
[2021-09-11] MEDS: cefTRIAXone 1,000 MG in Water for inj. (sterile) 10 ML IVP SCH (08:01)
[2021-09-11] MEDS: Insulin LISPRO 300 UNITS/3 ML VIAL SUBQ SCH ×3 (08:03→16:48)
[2021-09-11] MEDS: Fluticasone Propionate Nasal 50 MCG/SPRAY BOTTLE NS SCH (09:42)
[2021-09-11] MEDS: Tiotropium 10 INH DOSE IH SCH (10:52)
[2021-09-11] MEDS: Budesonide/Formoterol 160/4.5 1 PUFF INH IH SCH ×2 (10:53→20:11)
[2021-09-11] MEDS: Pantoprazole 40 MG VIAL IVP SCH (16:48)
[2021-09-11 17:01] LABS: Hematocrit 26.2 % (35.3-44.9); Hemoglobin 7.8 g/dL (11.5-15.4); Mean Corpuscular HGB Conc 29.8 g/dL (31.6-35.5); Mean Corpuscular Hemoglobin 31.6 pg (28.0-33.3); Mean Corpuscular Volume 106.1 fL (83.0-100.0); Mean Platelet Volume 10.3 fL (9.4-12.4); Platelet Count 124 K/mcL (140-400); Red Blood Count 2.47 M/mcL (3.82-4.97); Red Cell Distribution Width 16.9 % (11.5-14.5); White Blood Count 5.9 K/mcL (4.3-11.1)
[2021-09-11 17:11] LABS: Estimated Average Glucose 91 mg/dl; Hemoglobin A1C 4.8 %
[2021-09-12 01:21] LABS: Basophils % 0.1 %; Eosinophils % 0.4 %; Hematocrit 27.2 % (35.3-44.9); Hemoglobin 8.1 g/dL (11.5-15.4); Immature Granulocytes % 0.6 % (0-4); Lymphocytes # 0.7 K/mcL (0.6-4.6); Lymphocytes % 9.6 %; Mean Corpuscular HGB Conc 29.8 g/dL (31.6-35.5); Mean Corpuscular Hemoglobin 31.5 pg (28.0-33.3); Mean Corpuscular Volume 105.8 fL (83.0-100.0); Mean Platelet Volume 10.1 fL (9.4-12.4); Monocytes # 0.4 K/mcL (0.0-1.3); Monocytes % 6.2 %; Neutrophils # 5.9 K/mcL (1.6-8.9); Platelet Count 128 K/mcL (140-400); Red Blood Count 2.57 M/mcL (3.82-4.97); Red Cell Distribution Width 16.9 % (11.5-14.5); Segmented Neutrophils % 83.1 %; White Blood Count 7.1 K/mcL (4.3-11.1)
[2021-09-12 01:43] LABS: Calcium 9.1 mg/dL (8.6-10.3); Potassium 4.9 mEq/L (3.5-5.1)
[2021-09-12] MEDS: Budesonide/Formoterol 160/4.5 1 PUFF INH IH SCH ×2 (07:26→20:10)
[2021-09-12] MEDS: Tiotropium 10 INH DOSE IH SCH (07:26)
[2021-09-12] MEDS: Metoprolol 100 MG TABLET PO SCH ×2 (08:19→20:06)
[2021-09-12] MEDS: Fluticasone Propionate Nasal 50 MCG/SPRAY BOTTLE NS SCH (08:21)
[2021-09-12] MEDS: Insulin LISPRO 300 UNITS/3 ML VIAL SUBQ SCH ×3 (08:21→17:15)
[2021-09-12] MEDS: allopurinoL 100 MG TABLET PO SCH ×2 (08:22→20:06)
[2021-09-12] MEDS: Chlorhexidine Rinse 15 ML MOUTHWASH MM SCH ×2 (08:22→20:06)
[2021-09-12] MEDS: Isosorbide MONOnitrate (24 HR) 60 MG TAB.ER.24H PO SCH (08:22)
[2021-09-12] MEDS: Cyanocobalamin (B-12) 1,000 MCG TABLET PO SCH (08:22)
[2021-09-12] MEDS: Aspirin Enteric Coated 81 MG Tablet PO SCH (08:22)
[2021-09-12] MEDS: Magnesium Oxide 400 MG TABLET PO SCH ×2 (08:22→20:06)
[2021-09-12] MEDS: Gabapentin 300 MG CAPSULE PO SCH ×3 (08:23→20:06)
[2021-09-12] MEDS: cefTRIAXone 1,000 MG in Water for inj. (sterile) 10 ML IVP SCH (08:23)
[2021-09-12] MEDS: Azithromycin 250 MG TABLET PO SCH (08:23)
[2021-09-12] MEDS: predniSONE 20 MG TABLET PO SCH (08:23)
[2021-09-12] MEDS: Pantoprazole 40 MG VIAL IVP SCH (08:23)
[2021-09-12] MEDS ORDERED: Furosemide 20 MG TABLET PO SCH (09:00)
[2021-09-12 09:46] LABS: % Iron Saturation 13 % (15-50); Transferrin 256 mg/dL (200-400)
[2021-09-12] MEDS ORDERED: Benzonatate 100 MG CAPSULE PO PRN (09:53)
[2021-09-12 10:10] LABS: Albumin 3.7 g/dL (3.5-5.7); Albumin/Globulin Ratio 0.9 (1.1-2.2); Bilirubin,Direct 0.2 mg/dL (0.0-0.2); Bilirubin,Indirect 0.4 mg/dL (0.0-1.0); Bilirubin,Total 0.6 mg/dL (0.3-1.0); Globulin 3.9 g/dL (2.4-3.5); Total Protein 7.6 g/dL (6.4-8.9)
[2021-09-12 12:36] LABS: Bilirubin,Urine Negative (Negative); Blood,Urine Moderate (Negative); Clarity,Urine Turbid (Clear); Color,Urine Yellow (Yellow); Glucose,Urine (UA) Normal (Normal); Ketones,Urine Negative (Negative); Leukocyte Esterase,Urine Trace (Negative); Nitrite,Urine Negative (Negative); Protein,Urine 100 mg/dL (Neg-Trace); Specific Gravity,Urine 1.025 (1.010-1.025); Urobilinogen,Urine Normal (Normal)
[2021-09-12 12:40] LABS: Hyaline Casts,Urine Present per lpf (None Seen); Squamous Epithelial Cell,Urine Present per hpf (None-Few)
[2021-09-12 12:41] LABS: Bacteria,Urine Present per hpf (None-Few); RBC,Urine Present per hpf (0-3); Transitional Epi Cells,Urine Present per hpf (None-Few); WBC,Urine Present per hpf (0-3)
[2021-09-12 12:42] LABS: Renal Epithelial Cells,Urine Present per hpf (None-Few)
[2021-09-12] MEDS: Ipratropium/Albuterol Neb 3 ML IH SCH ×2 (15:31→20:10)
[2021-09-12] MEDS ORDERED: Albumin 25% 25gram/100mL 25 GM/100 ML IV.SOLN IVPB ONE (16:42)
[2021-09-12] MEDS: Insulin DETEMIR 100 UNIT/ML X5UNITS SUBQ SCH (20:05)
[2021-09-12] MEDS ORDERED: Insulin DETEMIR 100 UNIT/ML X5UNITS SUBQ SCH (21:00)
[2021-09-13] MEDS: Ipratropium/Albuterol Neb 3 ML IH SCH ×4 (03:57→20:49)
[2021-09-13] MEDS: Chlorhexidine Rinse 15 ML MOUTHWASH MM SCH ×2 (07:46→21:01)
[2021-09-13] MEDS: Insulin LISPRO 300 UNITS/3 ML VIAL SUBQ SCH ×3 (07:47→16:41)
[2021-09-13] MEDS: Insulin DETEMIR 100 UNIT/ML X5UNITS SUBQ SCH ×2 (07:47→21:07)
[2021-09-13] MEDS: cefTRIAXone 1,000 MG in Water for inj. (sterile) 10 ML IVP SCH (07:48)
[2021-09-13] MEDS: Pantoprazole 40 MG VIAL IVP SCH (07:48)
[2021-09-13] MEDS: Cyanocobalamin (B-12) 1,000 MCG TABLET PO SCH (07:49)
[2021-09-13] MEDS: Metoprolol 100 MG TABLET PO SCH ×2 (07:49→21:00)
[2021-09-13] MEDS: Fluticasone Propionate Nasal 50 MCG/SPRAY BOTTLE NS SCH (07:49)
[2021-09-13] MEDS: Aspirin Enteric Coated 81 MG Tablet PO SCH (07:49)
[2021-09-13] MEDS: Magnesium Oxide 400 MG TABLET PO SCH ×2 (07:49→21:01)
[2021-09-13] MEDS: allopurinoL 100 MG TABLET PO SCH ×2 (07:49→21:01)
[2021-09-13] MEDS: Azithromycin 250 MG TABLET PO SCH (07:49)
[2021-09-13] MEDS: Gabapentin 300 MG CAPSULE PO SCH (08:00)
[2021-09-13] MEDS ORDERED: predniSONE 20 MG TABLET PO SCH (09:00)
[2021-09-13] MEDS: Tiotropium 10 INH DOSE IH SCH (09:31)
[2021-09-13] MEDS: Budesonide/Formoterol 160/4.5 1 PUFF INH IH SCH ×2 (09:31→20:49)
[2021-09-13 10:54] LABS: Basophils % 0.1 %; Eosinophils # 0.1 K/mcL (0.0-0.6); Eosinophils % 1.5 %; Hematocrit 26.4 % (35.3-44.9); Hemoglobin 7.7 g/dL (11.5-15.4); Immature Granulocytes % 0.6 % (0-4); Lymphocytes # 0.7 K/mcL (0.6-4.6); Mean Corpuscular HGB Conc 29.2 g/dL (31.6-35.5); Mean Corpuscular Hemoglobin 31.3 pg (28.0-33.3); Mean Corpuscular Volume 107.3 fL (83.0-100.0); Mean Platelet Volume 10.4 fL (9.4-12.4); Monocytes # 0.4 K/mcL (0.0-1.3); Monocytes % 6.1 %; Neutrophils # 5.9 K/mcL (1.6-8.9); Platelet Count 117 K/mcL (140-400); Red Blood Count 2.46 M/mcL (3.82-4.97); Red Cell Distribution Width 16.6 % (11.5-14.5); Segmented Neutrophils % 81.7 %; White Blood Count 7.2 K/mcL (4.3-11.1)
[2021-09-13 11:08] LABS: Calcium 9.3 mg/dL (8.6-10.3); Potassium 4.4 mEq/L (3.5-5.1)
[2021-09-13] MEDS: Gabapentin 100 MG CAPSULE PO SCH ×2 (13:58→21:01)
[2021-09-13] MEDS: *HR* HYDROcodone/Acet 5/325 mg TABLET PO PRN ×2 (13:58→21:01)
[2021-09-14 01:32] LABS: Basophils % 0.2 %; Eosinophils # 0.1 K/mcL (0.0-0.6); Eosinophils % 1.3 %; Hematocrit 25.6 % (35.3-44.9); Hemoglobin 7.8 g/dL (11.5-15.4); Immature Granulocytes % 0.5 % (0-4); Lymphocytes # 0.9 K/mcL (0.6-4.6); Lymphocytes % 13.7 %; Mean Corpuscular HGB Conc 30.5 g/dL (31.6-35.5); Mean Corpuscular Hemoglobin 32.4 pg (28.0-33.3); Mean Corpuscular Volume 106.2 fL (83.0-100.0); Mean Platelet Volume 10.5 fL (9.4-12.4); Monocytes # 0.4 K/mcL (0.0-1.3); Neutrophils # 4.9 K/mcL (1.6-8.9); Platelet Count 118 K/mcL (140-400); Red Blood Count 2.41 M/mcL (3.82-4.97); Red Cell Distribution Width 16.1 % (11.5-14.5); Segmented Neutrophils % 78.3 %; White Blood Count 6.3 K/mcL (4.3-11.1)
[2021-09-14 01:56] LABS: Calcium 9.2 mg/dL (8.6-10.3); Potassium 4.8 mEq/L (3.5-5.1)
[2021-09-14] MEDS: Ipratropium/Albuterol Neb 3 ML IH SCH ×4 (04:34→20:48)
[2021-09-14] MEDS: allopurinoL 100 MG TABLET PO SCH ×2 (08:37→20:11)
[2021-09-14] MEDS: Cyanocobalamin (B-12) 1,000 MCG TABLET PO SCH (08:37)
[2021-09-14] MEDS: Metoprolol 100 MG TABLET PO SCH ×2 (08:37→20:11)
[2021-09-14] MEDS: cefTRIAXone 1,000 MG in Water for inj. (sterile) 10 ML IVP SCH (08:38)
[2021-09-14] MEDS: Gabapentin 100 MG CAPSULE PO SCH ×3 (08:38→20:11)
[2021-09-14] MEDS: Magnesium Oxide 400 MG TABLET PO SCH ×2 (08:38→20:11)
[2021-09-14] MEDS: Aspirin Enteric Coated 81 MG Tablet PO SCH (08:38)
[2021-09-14] MEDS: Pantoprazole 40 MG VIAL IVP SCH (08:38)
[2021-09-14] MEDS: Chlorhexidine Rinse 15 ML MOUTHWASH MM SCH ×2 (08:38→20:11)
[2021-09-14] MEDS: Fluticasone Propionate Nasal 50 MCG/SPRAY BOTTLE NS SCH (08:40)
[2021-09-14] MEDS: Insulin LISPRO 300 UNITS/3 ML VIAL SUBQ SCH ×3 (08:44→17:45)
[2021-09-14] MEDS: Insulin DETEMIR 100 UNIT/ML X5UNITS SUBQ SCH ×2 (09:59→20:11)
[2021-09-14] MEDS: Tiotropium 10 INH DOSE IH SCH (11:03)
[2021-09-14] MEDS: Budesonide/Formoterol 160/4.5 1 PUFF INH IH SCH ×2 (11:04→20:48)
[2021-09-14] MEDS: *HR* HYDROcodone/Acet 5/325 mg TABLET PO PRN (17:10)
[2021-09-14] MEDS: Acetaminophen 325 MG TABLET PO PRN (20:16)
[2021-09-15 01:19] LABS: Basophils % 0.4 %; Eosinophils # 0.2 K/mcL (0.0-0.6); Eosinophils % 2.2 %; Hemoglobin 8.2 g/dL (11.5-15.4); Immature Granulocytes % 0.3 % (0-4); Lymphocytes # 1.1 K/mcL (0.6-4.6); Lymphocytes % 14.1 %; Mean Corpuscular HGB Conc 30.4 g/dL (31.6-35.5); Mean Corpuscular Hemoglobin 32.2 pg (28.0-33.3); Mean Corpuscular Volume 105.9 fL (83.0-100.0); Mean Platelet Volume 10.3 fL (9.4-12.4); Monocytes # 0.5 K/mcL (0.0-1.3); Monocytes % 6.1 %; Platelet Count 126 K/mcL (140-400); Red Blood Count 2.55 M/mcL (3.82-4.97); Segmented Neutrophils % 76.9 %; White Blood Count 7.8 K/mcL (4.3-11.1)
[2021-09-15 01:38] LABS: Calcium 9.4 mg/dL (8.6-10.3); Potassium 4.7 mEq/L (3.5-5.1)
[2021-09-15] MEDS: Ipratropium/Albuterol Neb 3 ML IH SCH ×4 (03:51→20:27)
[2021-09-15] MEDS: Insulin LISPRO 300 UNITS/3 ML VIAL SUBQ SCH ×3 (08:23→16:29)
[2021-09-15] MEDS: Fluticasone Propionate Nasal 50 MCG/SPRAY BOTTLE NS SCH (08:23)
[2021-09-15] MEDS: Pantoprazole 40 MG VIAL IVP SCH (08:23)
[2021-09-15] MEDS: Insulin DETEMIR 100 UNIT/ML X5UNITS SUBQ SCH ×2 (08:23→21:30)
[2021-09-15] MEDS: Metoprolol 100 MG TABLET PO SCH ×2 (08:24→21:29)
[2021-09-15] MEDS: Cyanocobalamin (B-12) 1,000 MCG TABLET PO SCH (08:24)
[2021-09-15] MEDS: Chlorhexidine Rinse 15 ML MOUTHWASH MM SCH ×2 (08:24→21:29)
[2021-09-15] MEDS: Magnesium Oxide 400 MG TABLET PO SCH ×2 (08:24→21:29)
[2021-09-15] MEDS: Gabapentin 100 MG CAPSULE PO SCH ×3 (08:24→21:29)
[2021-09-15] MEDS: Aspirin Enteric Coated 81 MG Tablet PO SCH (08:24)
[2021-09-15] MEDS: allopurinoL 100 MG TABLET PO SCH ×2 (08:24→21:29)
[2021-09-15] MEDS: Budesonide/Formoterol 160/4.5 1 PUFF INH IH SCH ×2 (10:00→20:32)
[2021-09-15] MEDS: Tiotropium 10 INH DOSE IH SCH (10:00)
[2021-09-15] MEDS: *HR* HYDROcodone/Acet 5/325 mg TABLET PO PRN ×2 (16:29→22:30)
[2021-09-16] MEDS: Ipratropium/Albuterol Neb 3 ML IH SCH ×2 (04:07→10:40)
[2021-09-16] MEDS: Gabapentin 100 MG CAPSULE PO SCH (10:14)
[2021-09-16] MEDS: Pantoprazole 40 MG VIAL IVP SCH (10:15)
[2021-09-16] MEDS: Aspirin Enteric Coated 81 MG Tablet PO SCH (10:15)
[2021-09-16] MEDS: Magnesium Oxide 400 MG TABLET PO SCH (10:15)
[2021-09-16] MEDS: Metoprolol 100 MG TABLET PO SCH (10:15)
[2021-09-16] MEDS: Insulin LISPRO 300 UNITS/3 ML VIAL SUBQ SCH (10:15)
[2021-09-16] MEDS: allopurinoL 100 MG TABLET PO SCH (10:15)
[2021-09-16] MEDS: Chlorhexidine Rinse 15 ML MOUTHWASH MM SCH (10:15)
[2021-09-16] MEDS: Cyanocobalamin (B-12) 1,000 MCG TABLET PO SCH (10:15)
[2021-09-16] MEDS: Insulin DETEMIR 100 UNIT/ML X5UNITS SUBQ SCH (10:16)
[2021-09-16] MEDS: *HR* HYDROcodone/Acet 5/325 mg TABLET PO PRN (10:22)
[2021-09-16] MEDS: Fluticasone Propionate Nasal 50 MCG/SPRAY BOTTLE NS SCH (10:38)
[2021-09-16] MEDS: Budesonide/Formoterol 160/4.5 1 PUFF INH IH SCH (10:40)
[2021-09-16] MEDS: Tiotropium 10 INH DOSE IH SCH (10:42)
[2021-09-16 11:31] VITALS: BP 124/57; PULSE 84; TEMP 98.2; O2SAT 91
== END 2021-09-16 13:08 | disposition home or self-care (01) | DRG 291 ==
LOC: 3BNU → SUATTDRO 21:45
PROVIDERS: ADMIT Internal Medicine; ATTEND Family Medicine

== ENCOUNTER 2021-09-22 14:06 | Inpatient (IN) ==
[2021-09-22 15:22] LABS: Basophils % 0.2 %; Eosinophils # 0.1 K/mcL (0.0-0.6); Eosinophils % 2.8 %; Hematocrit 25.2 % (35.3-44.9); Hemoglobin 7.3 g/dL (11.5-15.4); Immature Granulocytes % 0.4 % (0-4); Lymphocytes # 0.7 K/mcL (0.6-4.6); Lymphocytes % 14.5 %; Mean Corpuscular Hemoglobin 32.2 pg (28.0-33.3); Mean Platelet Volume 10.7 fL (9.4-12.4); Monocytes # 0.4 K/mcL (0.0-1.3); Monocytes % 8.5 %; Neutrophils # 3.7 K/mcL (1.6-8.9); Platelet Count 111 K/mcL (140-400); Red Blood Count 2.27 M/mcL (3.82-4.97); Red Cell Distribution Width 16.3 % (11.5-14.5); Segmented Neutrophils % 73.6 %
[2021-09-22 15:40] LABS: Calcium 9.1 mg/dL (8.6-10.3); Potassium 4.5 mEq/L (3.5-5.1)
[2021-09-22 16:01] LABS: Basophilic Stippling 1+ (Not Present); Polychromasia 1+ (Not Present); Stomatocytes 1+ (Not Present)
[2021-09-22 16:02] LABS: Large Platelets Present (Not Present)
[2021-09-22] MEDS ORDERED: 0.9 % Sodium Chloride 250 ML ONE (21:30)
[2021-09-23] MEDS ORDERED: Naloxone 0.4 MG/ML INJ IVP PRN (00:32)
[2021-09-23] MEDS ORDERED: Acetaminophen 325 MG TABLET PO PRN (00:32)
[2021-09-23] MEDS ORDERED: Furosemide 20 MG/2 ML VIAL IVP ONE (00:38)
[2021-09-23] MEDS ORDERED: Dextrose Gel 15 GM/37.5 ML TUBE PO PRN ×2 (00:45)
[2021-09-23] MEDS ORDERED: *HR* Dextrose 50 % in Water (Syg) 50 ML SYRINGE IVP PRN (00:45)
[2021-09-23] MEDS ORDERED: D5% in Water 1,000 ML IVC PRN (00:45)
[2021-09-23] MEDS: Ipratropium/Albuterol Neb 3 ML IH SCH ×7 (02:06→23:52)
[2021-09-23 02:10] LABS: Basophils % 0.2 %; Immature Granulocytes % 0.6 % (0-4)
[2021-09-23 02:12] LABS: Eosinophils # 0.1 K/mcL (0.0-0.6); Eosinophils % 2.8 %; Hematocrit 27.6 % (35.3-44.9); Hemoglobin 8.2 g/dL (11.5-15.4); Lymphocytes # 0.6 K/mcL (0.6-4.6); Lymphocytes % 12.6 %; Mean Corpuscular HGB Conc 29.7 g/dL (31.6-35.5); Mean Corpuscular Hemoglobin 31.8 pg (28.0-33.3); Mean Platelet Volume 10.4 fL (9.4-12.4); Monocytes # 0.4 K/mcL (0.0-1.3); Monocytes % 8.3 %; Neutrophils # 3.7 K/mcL (1.6-8.9); Platelet Count 109 K/mcL (140-400); Red Blood Count 2.58 M/mcL (3.82-4.97); Red Cell Distribution Width 17.6 % (11.5-14.5); Segmented Neutrophils % 75.5 %; White Blood Count 4.9 K/mcL (4.3-11.1)
[2021-09-23] MEDS: Azithromycin 500 MG in 0.9 % Sodium Chloride 250 ML IVPB SCH (02:21)
[2021-09-23 02:26] LABS: VBG HCO3 37 mEq/L (21-27); VBG PCO2 72 mmHg (41-51); VBG PH 7.32 pH Units (7.32-7.42); VBG PO2 58 mmHg (25-50)
[2021-09-23 02:30] LABS: Alanine Aminotransferase 31 Units/L (7-52); Albumin 3.6 g/dL (3.5-5.7); Alkaline Phosphatase 139 Units/L (34-104); Aspartate Amino Transferase 38 Units/L (13-39); BUN/Creatinine Ratio 25 (6-26); Bilirubin,Total 1.2 mg/dL (0.3-1.0); Blood Urea Nitrogen 26 mg/dL (8-23); Calcium 9.1 mg/dL (8.6-10.3); Carbon Dioxide 36 mEq/L (23-29); Chloride 100 mEq/L (98-107); Globulin 3.5 g/dL (2.4-3.5); Glucose 74 mg/dL (70-105); Osmolality,Calculated 293 (280-300); Sodium 140 mEq/L (136-145); Total Protein 7.1 g/dL (6.4-8.9); eGFR For African Americans > 60 (> 60); eGFR For Non-African Americans 51 (> 60)
[2021-09-23 02:31] LABS: Bilirubin,Direct 0.2 mg/dL (0.0-0.2); Bilirubin,Indirect 1.1 mg/dL (0.0-1.0); Bilirubin,Total 1.3 mg/dL (0.3-1.0)
[2021-09-23 02:35] LABS: Iron 116 mcg/dL (50-170)
[2021-09-23 02:36] LABS: Acetaminophen < 10 mcg/mL (10-20); Salicylate < 2.5 mg/dL (15.0-30.0)
[2021-09-23 02:37] LABS: Anisocytosis 1+ (Not Present); Hypochromasia Present (Not Present); Platelet Estimate Normal (Normal)
[2021-09-23 02:49] LABS: Thyroid Stimulating Hormone 4.702 mcIU/mL (0.340-5.600)
[2021-09-23 02:57] LABS: Folate 12.1 ng/mL (3.0-16.0)
[2021-09-23 03:23] LABS: Vitamin B12 > 1500 pg/mL (250-1100)
[2021-09-23 04:10] LABS: Ferritin 15 ng/mL (10-120)
[2021-09-23] MEDS: Insulin LISPRO 300 UNITS/3 ML VIAL SUBQ SCH ×3 (05:11→20:08)
[2021-09-23] MEDS: Tiotropium 10 INH DOSE IH SCH (07:56)
[2021-09-23] MEDS: MethylPREDNISolone 40 MG/ML VIAL IVP SCH ×2 (08:17→17:26)
[2021-09-23 10:33] LABS: ABG Base Excess 12 mEq/L (-2 to 3); ABG HCO3 39 mEq/L (21-27); ABG Oxygen Saturation 95 % (95-98); ABG PCO2 63 mmHg (35-45); ABG PO2 76 mmHg (85-104); ABG TCO2 41 mEq/L (20-26)
[2021-09-23 13:06] LABS: Bilirubin,Urine Negative (Negative); Blood,Urine Negative (Negative); Clarity,Urine Clear (Clear); Color,Urine Yellow (Yellow); Glucose,Urine (UA) Normal (Normal); Ketones,Urine Negative (Negative); Leukocyte Esterase,Urine Negative (Negative); Nitrite,Urine Negative (Negative); PH,Urine 5.5 pH Units (5.0-8.0); Protein,Urine Trace mg/dL (Neg-Trace); Specific Gravity,Urine 1.018 (1.010-1.025); Urobilinogen,Urine Normal (Normal)
[2021-09-23 13:52] LABS: Amphetamine Screen,Urine Negative ng/mL (Cutoff=1000); Barbiturate Screen,Urine Negative ng/mL (Cutoff=200); Benzodiazepines Screen,Urine Negative ng/mL (Cutoff=200); Cannabinoid Screen,Urine Negative ng/mL (Cutoff = 50); Cocaine Screen,Urine Negative ng/mL (Cutoff= 300); Opiate Screen,Urine Positive ng/mL (Cutoff=300); Phencyclidine Screen,Urine Negative ng/mL (Cutoff=25)
[2021-09-23] MEDS: allopurinoL 100 MG TABLET PO SCH (20:07)
[2021-09-23] MEDS: Metoprolol 100 MG TABLET PO SCH (20:07)
[2021-09-23] MEDS: Magnesium Oxide 400 MG TABLET PO SCH (20:07)
[2021-09-23] MEDS ORDERED: *HR* HYDROcodone/Acet 5/325 mg TABLET PO ONE (20:53)
[2021-09-23 21:00] LABS: Adenovirus Not Detected (Not Detect); Bordetella Pertussis Not Detected (Not Detect); Chlamydophila pneumoniae Not Detected (Not Detect); Coronavirus 229E Not Detected (Not Detect); Coronavirus HKU1 Not Detected (Not Detect); Coronavirus NL63 Not Detected (Not Detect); Coronavirus OC43 Not Detected (Not Detect); Human Metapneumovirus Not Detected (Not Detect); Human Rhinovirus/Enterovirus Not Detected (Not Detect); Influenza A Subtype 2009 H1 Not Detected (Not Detect); Influenza B Not Detected (Not Detect); Mycoplasma pneumoniae Not Detected (Not Detect); Parainfluenza Virus 1 Not Detected (Not Detect); Parainfluenza Virus 2 Not Detected (Not Detect); Parainfluenza Virus 3 Not Detected (Not Detect); Parainfluenza Virus 4 Not Detected (Not Detect); Respiratory Syncytial Virus Not Detected (Not Detect); SARS-CoV-2 Not Detected (Not Detect)
[2021-09-23] MEDS ORDERED: NON-FORMULARY MEDICATION 1 EACH EACH (Insulin Glargine,Hum.Rec.Anlog [Lantus Solostar] 100 SQ SCH (21:00)
[2021-09-24] MEDS: Azithromycin 500 MG in 0.9 % Sodium Chloride 250 ML IVPB SCH (00:39)
[2021-09-24 04:06] LABS: Mean Corpuscular Volume 105.5 fL (83.0-100.0)
[2021-09-24 04:08] LABS: Hematocrit 28.9 % (35.3-44.9); Hemoglobin 8.6 g/dL (11.5-15.4); Immature Platelets 3.2 % (1.1-6.1); Mean Corpuscular HGB Conc 29.8 g/dL (31.6-35.5); Mean Corpuscular Hemoglobin 31.4 pg (28.0-33.3); Mean Platelet Volume 10.3 fL (9.4-12.4); Red Blood Count 2.74 M/mcL (3.82-4.97); White Blood Count 5.4 K/mcL (4.3-11.1)
[2021-09-24 04:31] LABS: Albumin 3.5 g/dL (3.5-5.7); Calcium 8.7 mg/dL (8.6-10.3); Globulin 3.6 g/dL (2.4-3.5); Potassium 5.2 mEq/L (3.5-5.1); Total Protein 7.1 g/dL (6.4-8.9)
[2021-09-24] MEDS: Ipratropium/Albuterol Neb 3 ML IH SCH ×2 (04:42→07:21)
[2021-09-24 04:58] LABS: ABG Base Excess 8 mEq/L (-2 to 3); ABG HCO3 33 mEq/L (21-27); ABG Oxygen Saturation 89 % (95-98); ABG PCO2 54 mmHg (35-45); ABG PO2 59 mmHg (85-104); ABG TCO2 35 mEq/L (20-26)
[2021-09-24 07:21] VITALS: BP 178/81; PULSE 85; TEMP 98.3
[2021-09-24] MEDS: Tiotropium 10 INH DOSE IH SCH (07:21)
[2021-09-24 07:27] VITALS: O2SAT 98
[2021-09-24] MEDS: Metoprolol 100 MG TABLET PO SCH (07:38)
[2021-09-24] MEDS: Magnesium Oxide 400 MG TABLET PO SCH (07:38)
[2021-09-24] MEDS: allopurinoL 100 MG TABLET PO SCH (07:38)
[2021-09-24] MEDS: Insulin LISPRO 300 UNITS/3 ML VIAL SUBQ SCH (07:43)
[2021-09-24] MEDS ORDERED: Multivit/Ca/Min/Fe/FA 1 TAB TABLET PO SCH (09:00)
[2021-09-24] MEDS ORDERED: Cyanocobalamin (B-12) 1,000 MCG TABLET PO SCH (09:00)
[2021-09-24] MEDS ORDERED: predniSONE 20 MG TABLET PO SCH (09:00)
[2021-09-24] MEDS ORDERED: Aspirin Enteric Coated 81 MG Tablet PO SCH (09:00)
[2021-09-24] MEDS ORDERED: Gabapentin 100 MG CAPSULE PO SCH (09:00)
[2021-09-24] MEDS ORDERED: Isosorbide MONOnitrate (24 HR) 60 MG TAB.ER.24H PO SCH (09:00)
[2021-09-24] MEDS ORDERED: SODIUM ZIRCONIUM CYCLOSILICATE 5 GM POWD.PACK PO SCH (09:45)
[2021-09-28 07:09] LABS: % Iron Saturation 33 % (15-50); Transferrin 254 mg/dL (200-400)
== END 2021-09-24 10:52 | disposition home health service (06) | DRG 190 ==
LOC: EMEROOARM 14:06 → 3ANU 14:06 → SUATTDRO 21:14 → 3ANU 22:17
PROVIDERS: ADMIT Internal Medicine; ATTEND Internal Medicine

== ENCOUNTER 2022-02-16 16:48 | Inpatient (IN) ==
[2022-02-16] MEDS ORDERED: Naloxone 0.4 MG/ML INJ IVP PRN (23:47)
[2022-02-16] MEDS ORDERED: Melatonin 3 MG TABLET PO PRN (23:47)
[2022-02-17] MEDS ORDERED: Acetaminophen 325 MG TABLET PO PRN (00:04)
[2022-02-17] MEDS ORDERED: Naloxone 0.4 MG/ML INJ IVP PRN (00:10)
[2022-02-17] MEDS ORDERED: D5% in Water 1,000 ML IVC PRN (00:12)
[2022-02-17] MEDS ORDERED: Dextrose 4 GM Chewable Tablets PO PRN ×2 (00:12)
[2022-02-17] MEDS ORDERED: *HR* Dextrose 50 % in Water (Syg) 50 ML SYRINGE ONE (00:18)
[2022-02-17] MEDS: *HR* Dextrose 50 % in Water (Syg) 50 ML SYRINGE IVP PRN ×3 (00:22→04:22)
[2022-02-17 00:56] LABS: Basophils % 0.2 %; Eosinophils # 0.3 K/mcL (0.0-0.6); Eosinophils % 4.6 %; Hematocrit 26.2 % (35.3-44.9); Hemoglobin 7.8 g/dL (11.5-15.4); Immature Granulocytes % 0.3 % (0-4); Lymphocytes # 0.8 K/mcL (0.6-4.6); Mean Corpuscular HGB Conc 29.8 g/dL (31.6-35.5); Mean Corpuscular Volume 107.4 fL (83.0-100.0); Mean Platelet Volume 10.2 fL (9.4-12.4); Monocytes # 0.4 K/mcL (0.0-1.3); Monocytes % 6.6 %; Neutrophils # 4.5 K/mcL (1.6-8.9); Platelet Count 108 K/mcL (140-400); Red Blood Count 2.44 M/mcL (3.82-4.97); Red Cell Distribution Width 15.8 % (11.5-14.5); Segmented Neutrophils % 75.3 %; White Blood Count 5.9 K/mcL (4.3-11.1)
[2022-02-17 01:03] LABS: INR 1.3; Prothrombin Time 14.6 Seconds (9.4-12.1)
[2022-02-17 01:05] LABS: Activated Partial Thrombo Time 33.4 Seconds (26.0-36.0)
[2022-02-17 01:11] LABS: Alanine Aminotransferase 11 Units/L (7-52); Albumin 3.4 g/dL (3.5-5.7); Albumin/Globulin Ratio 0.9 (1.1-2.2); Alkaline Phosphatase 112 Units/L (34-104); Aspartate Amino Transferase 16 Units/L (13-39); BUN/Creatinine Ratio 26 (6-26); Blood Urea Nitrogen 27 mg/dL (8-23); Calcium 8.9 mg/dL (8.6-10.3); Carbon Dioxide 38 mEq/L (23-29); Chloride 93 mEq/L (98-107); Glucose 105 mg/dL (70-105); Osmolality,Calculated 289 (280-300); Potassium 4.3 mEq/L (3.5-5.1); Sodium 137 mEq/L (136-145); Total Protein 7.4 g/dL (6.4-8.9); eGFR For African Americans > 60 (> 60); eGFR For Non-African Americans 54 (> 60)
[2022-02-17 01:31] LABS: ABG Base Excess 11 mEq/L (-2 to 3); ABG HCO3 38 mEq/L (21-27); ABG Oxygen Saturation 92 % (95-98); ABG PCO2 65 mmHg (35-45); ABG PH 7.37 pH Units (7.32-7.45); ABG PO2 68 mmHg (85-104); ABG TCO2 40 mEq/L (20-26)
[2022-02-17 02:25] LABS: % Iron Saturation 12 % (15-50); Iron 41 mcg/dL (50-170); Transferrin 236 mg/dL (203-362)
[2022-02-17 02:44] LABS: Ferritin 33 ng/mL (10-120)
[2022-02-17 02:49] LABS: Folate 11.4 ng/mL (3.0-16.0)
[2022-02-17] MEDS ORDERED: *HR* Heparin 5,000 UNIT/ML VIAL SQ SCH (06:00)
[2022-02-17] MEDS: Insulin LISPRO 300 UNITS/3 ML VIAL SUBQ SCH ×3 (06:04→17:11)
[2022-02-17] MEDS ORDERED: Furosemide 40 MG/4 ML VIAL IVP SCH ×2 (09:00→21:00)
[2022-02-17 09:53] LABS: Adenovirus Not Detected (Not Detect); Bordetella Pertussis Not Detected (Not Detect); Chlamydophila pneumoniae Not Detected (Not Detect); Coronavirus 229E Not Detected (Not Detect); Coronavirus HKU1 Not Detected (Not Detect); Coronavirus NL63 Not Detected (Not Detect); Coronavirus OC43 Not Detected (Not Detect); Human Metapneumovirus Not Detected (Not Detect); Human Rhinovirus/Enterovirus Not Detected (Not Detect); Influenza A Subtype 2009 H1 Not Detected (Not Detect); Influenza B Not Detected (Not Detect); Mycoplasma pneumoniae Not Detected (Not Detect); Parainfluenza Virus 1 Not Detected (Not Detect); Parainfluenza Virus 2 Not Detected (Not Detect); Parainfluenza Virus 3 Not Detected (Not Detect); Parainfluenza Virus 4 Not Detected (Not Detect); Respiratory Syncytial Virus Not Detected (Not Detect); SARS-CoV-2 Not Detected (Not Detect)
[2022-02-17] MEDS ORDERED: Lactulose Oral Soln 20 GM/30 ML UDC PO ONE (10:36)
[2022-02-17] MEDS ORDERED: Ipratropium/Albuterol Neb 3 ML IH PRN (10:38)
[2022-02-17] MEDS ORDERED: Perflutren Lipid Microsphere 1.3 ML in 0.9 % Sodium Chloride 8.7 ML IVP PRN (10:48)
[2022-02-17] MEDS: Azithromycin 500 MG in D5% in Water 250 ML IVPB SCH (11:15)
[2022-02-17] MEDS: cefTRIAXone 1,000 MG in Water for inj. (sterile) 10 ML IVP SCH (11:15)
[2022-02-17 13:58] LABS: Hematocrit 28.6 % (35.3-44.9); Hemoglobin 8.8 g/dL (11.5-15.4); Mean Corpuscular HGB Conc 30.8 g/dL (31.6-35.5); Mean Corpuscular Hemoglobin 33.3 pg (28.0-33.3); Mean Corpuscular Volume 108.3 fL (83.0-100.0); Mean Platelet Volume 10.3 fL (9.4-12.4); Platelet Count 113 K/mcL (140-400); Red Blood Count 2.64 M/mcL (3.82-4.97); Red Cell Distribution Width 15.7 % (11.5-14.5); White Blood Count 6.6 K/mcL (4.3-11.1)
[2022-02-17] MEDS: Gabapentin 100 MG CAPSULE PO SCH (20:49)
[2022-02-17] MEDS: Insulin DETEMIR 100 UNIT/ML X5UNITS SUBQ SCH (20:49)
[2022-02-17] MEDS: *HR* HYDROcodone/Acet 5/325 mg TABLET PO PRN (20:50)
[2022-02-17] MEDS: Magnesium Oxide 400 MG TABLET PO SCH (20:50)
[2022-02-17] MEDS: Ondansetron 4 MG/2 ML VIAL IVP PRN (20:57)
[2022-02-18] MEDS: Insulin LISPRO 300 UNITS/3 ML VIAL SUBQ SCH ×4 (00:14→17:54)
[2022-02-18 02:03] LABS: Basophils % 0.2 %; Eosinophils # 0.2 K/mcL (0.0-0.6); Hematocrit 27.2 % (35.3-44.9); Hemoglobin 8.2 g/dL (11.5-15.4); Immature Granulocytes % 0.6 % (0-4); Lymphocytes # 0.7 K/mcL (0.6-4.6); Lymphocytes % 12.7 %; Mean Corpuscular HGB Conc 30.1 g/dL (31.6-35.5); Mean Corpuscular Hemoglobin 32.2 pg (28.0-33.3); Mean Corpuscular Volume 106.7 fL (83.0-100.0); Mean Platelet Volume 10.3 fL (9.4-12.4); Monocytes # 0.4 K/mcL (0.0-1.3); Monocytes % 6.9 %; Neutrophils # 4.1 K/mcL (1.6-8.9); Platelet Count 108 K/mcL (140-400); Red Blood Count 2.55 M/mcL (3.82-4.97); Red Cell Distribution Width 15.7 % (11.5-14.5); Segmented Neutrophils % 76.6 %; White Blood Count 5.4 K/mcL (4.3-11.1)
[2022-02-18 02:21] LABS: Albumin 3.3 g/dL (3.5-5.7); Albumin/Globulin Ratio 0.8 (1.1-2.2); Bilirubin,Total 0.9 mg/dL (0.3-1.0); Calcium 8.9 mg/dL (8.6-10.3); Globulin 4.1 g/dL (2.4-3.5); Potassium 4.3 mEq/L (3.5-5.1); Total Protein 7.4 g/dL (6.4-8.9)
[2022-02-18] MEDS ORDERED: Cyanocobalamin (B-12) 1,000 MCG TABLET PO SCH (09:00)
[2022-02-18] MEDS ORDERED: Furosemide 40 MG/4 ML VIAL IVP SCH (09:00)
[2022-02-18] MEDS: Magnesium Oxide 400 MG TABLET PO SCH ×2 (09:52→20:55)
[2022-02-18] MEDS: Cyanocobalamin (B-12) 1,000 MCG TABLET PO SCH (09:52)
[2022-02-18] MEDS: Aspirin Enteric Coated 81 MG Tablet PO SCH (09:52)
[2022-02-18] MEDS: Gabapentin 100 MG CAPSULE PO SCH ×3 (09:53→20:54)
[2022-02-18] MEDS: cefTRIAXone 1,000 MG in Water for inj. (sterile) 10 ML IVP SCH (09:54)
[2022-02-18] MEDS: Insulin DETEMIR 100 UNIT/ML X5UNITS SUBQ SCH ×2 (10:04→21:00)
[2022-02-18] MEDS: Tiotropium 10 INH DOSE IH SCH (10:13)
[2022-02-18] MEDS: Iron Sucrose Complex 200 MG in 0.9 % Sodium Chloride 100 ML IVPB SCH (10:42)
[2022-02-18] MEDS: Ondansetron 4 MG/2 ML VIAL IVP PRN (10:54)
[2022-02-18] MEDS: *HR* HYDROcodone/Acet 5/325 mg TABLET PO PRN ×3 (10:55→22:25)
[2022-02-18] MEDS: Azithromycin 500 MG in D5% in Water 250 ML IVPB SCH (11:20)
[2022-02-18 13:42] LABS: ABG Base Excess 13 mEq/L (-2 to 3); ABG HCO3 40 mEq/L (21-27); ABG Oxygen Saturation 90 % (95-98); ABG PCO2 62 mmHg (35-45); ABG PH 7.41 pH Units (7.32-7.45); ABG PO2 60 mmHg (85-104); ABG TCO2 41 mEq/L (20-26)
[2022-02-19] MEDS: *HR* LORazepam 1 MG TABLET PO PRN (00:42)
[2022-02-19 01:13] LABS: Basophils % 0.2 %; Eosinophils # 0.2 K/mcL (0.0-0.6); Eosinophils % 3.9 %; Hemoglobin 8.2 g/dL (11.5-15.4); Immature Granulocytes % 0.2 % (0-4); Lymphocytes # 0.8 K/mcL (0.6-4.6); Lymphocytes % 14.7 %; Mean Corpuscular HGB Conc 30.4 g/dL (31.6-35.5); Mean Corpuscular Hemoglobin 32.9 pg (28.0-33.3); Mean Corpuscular Volume 108.4 fL (83.0-100.0); Mean Platelet Volume 10.3 fL (9.4-12.4); Monocytes # 0.4 K/mcL (0.0-1.3); Monocytes % 7.2 %; Neutrophils # 4.2 K/mcL (1.6-8.9); Platelet Count 109 K/mcL (140-400); Red Blood Count 2.49 M/mcL (3.82-4.97); Red Cell Distribution Width 15.6 % (11.5-14.5); Segmented Neutrophils % 73.8 %; White Blood Count 5.7 K/mcL (4.3-11.1)
[2022-02-19] MEDS: Insulin LISPRO 300 UNITS/3 ML VIAL SUBQ SCH ×6 (01:32→21:07)
[2022-02-19 01:35] LABS: Calcium 8.7 mg/dL (8.6-10.3); Potassium 4.6 mEq/L (3.5-5.1)
[2022-02-19] MEDS ORDERED: Ondansetron ODT 4 MG TAB.RAPDIS PO PRN (07:13)
[2022-02-19] MEDS ORDERED: Furosemide 40 MG/4 ML VIAL IVP SCH (09:00)
[2022-02-19] MEDS: Tiotropium 10 INH DOSE IH SCH (09:04)
[2022-02-19] MEDS: Cyanocobalamin (B-12) 1,000 MCG TABLET PO SCH (09:39)
[2022-02-19] MEDS: Aspirin Enteric Coated 81 MG Tablet PO SCH (09:39)
[2022-02-19] MEDS: allopurinoL 100 MG TABLET PO SCH ×2 (09:39→21:08)
[2022-02-19] MEDS: Insulin DETEMIR 100 UNIT/ML X5UNITS SUBQ SCH ×2 (09:39→21:06)
[2022-02-19] MEDS: Magnesium Oxide 400 MG TABLET PO SCH ×2 (09:39→21:08)
[2022-02-19] MEDS: Gabapentin 100 MG CAPSULE PO SCH ×3 (09:39→21:08)
[2022-02-19] MEDS: *HR* HYDROcodone/Acet 5/325 mg TABLET PO PRN ×2 (09:46→16:32)
[2022-02-19] MEDS: Iron Sucrose Complex 200 MG in 0.9 % Sodium Chloride 100 ML IVPB SCH (09:48)
[2022-02-19] MEDS: cefTRIAXone 1,000 MG in Water for inj. (sterile) 10 ML IVP SCH (11:00)
[2022-02-19] MEDS: Azithromycin 500 MG in D5% in Water 250 ML IVPB SCH (11:01)
[2022-02-19] MEDS: Albumin 25% 25gram/100mL 25 GM/100 ML IV.SOLN IVPB SCH (16:20)
[2022-02-19] MEDS: Ondansetron 4 MG/2 ML VIAL IVP PRN (18:58)
[2022-02-20] MEDS: Albumin 25% 25gram/100mL 25 GM/100 ML IV.SOLN IVPB SCH ×3 (00:15→16:15)
[2022-02-20 07:30] LABS: Hemoglobin 7.5 g/dL (11.5-15.4); Mean Corpuscular Hemoglobin 32.2 pg (28.0-33.3); Mean Corpuscular Volume 107.3 fL (83.0-100.0); Mean Platelet Volume 10.6 fL (9.4-12.4); Platelet Count 101 K/mcL (140-400); Red Blood Count 2.33 M/mcL (3.82-4.97); Red Cell Distribution Width 15.3 % (11.5-14.5); White Blood Count 4.5 K/mcL (4.3-11.1)
[2022-02-20] MEDS: Magnesium Oxide 400 MG TABLET PO SCH ×2 (08:47→21:18)
[2022-02-20] MEDS: Aspirin Enteric Coated 81 MG Tablet PO SCH (08:47)
[2022-02-20] MEDS: *HR* HYDROcodone/Acet 5/325 mg TABLET PO PRN ×3 (08:47→18:58)
[2022-02-20] MEDS: allopurinoL 100 MG TABLET PO SCH ×2 (08:48→21:18)
[2022-02-20] MEDS: Cyanocobalamin (B-12) 1,000 MCG TABLET PO SCH (08:48)
[2022-02-20] MEDS: Gabapentin 100 MG CAPSULE PO SCH ×3 (08:48→21:18)
[2022-02-20] MEDS: Insulin LISPRO 300 UNITS/3 ML VIAL SUBQ SCH ×4 (08:56→21:19)
[2022-02-20] MEDS: Insulin DETEMIR 100 UNIT/ML X5UNITS SUBQ SCH ×2 (08:57→21:19)
[2022-02-20 09:12] LABS: Calcium 9.1 mg/dL (8.6-10.3); Potassium 4.9 mEq/L (3.5-5.1)
[2022-02-20] MEDS: Tiotropium 10 INH DOSE IH SCH (10:38)
[2022-02-20] MEDS: cefTRIAXone 1,000 MG in Water for inj. (sterile) 10 ML IVP SCH (11:25)
[2022-02-20] MEDS: Azithromycin 250 MG TABLET PO SCH (11:25)
[2022-02-20] MEDS: Iron Sucrose Complex 200 MG in 0.9 % Sodium Chloride 100 ML IVPB SCH (11:25)
[2022-02-20 14:41] LABS: Bilirubin,Urine Negative (Negative); Blood,Urine Large (Negative); Clarity,Urine Clear (Clear); Color,Urine Yellow (Yellow); Glucose,Urine (UA) Normal (Normal); Ketones,Urine Negative (Negative); Leukocyte Esterase,Urine Negative (Negative); Mucus,Urine Few per lpf (None-Few); Nitrite,Urine Negative (Negative); PH,Urine 6.5 pH Units (5.0-8.0); Protein,Urine Trace mg/dL (Neg-Trace); RBC,Urine TNTC per hpf (0-3); Specific Gravity,Urine 1.021 (1.010-1.025); Urobilinogen,Urine Normal (Normal); WBC,Urine 0-3 per hpf (0-3)
[2022-02-20] MEDS: Lactulose Oral Soln 20 GM/30 ML UDC PO PRN (17:38)
[2022-02-20] MEDS: predniSONE 20 MG TABLET PO SCH (17:38)
[2022-02-20] MEDS: Budesonide/Formoterol 160/4.5 1 PUFF INH IH SCH (20:11)
[2022-02-20] MEDS: *HR* LORazepam 1 MG TABLET PO PRN (23:13)
[2022-02-21] MEDS: Albumin 25% 25gram/100mL 25 GM/100 ML IV.SOLN IVPB SCH ×3 (00:25→15:10)
[2022-02-21 06:08] LABS: Calcium 9.2 mg/dL (8.6-10.3); Potassium 5.9 mEq/L (3.5-5.1)
[2022-02-21] MEDS ORDERED: Insulin Human Regular 10 UNIT in 0.9 % Sodium Chloride 10 ML IV ONE (07:07)
[2022-02-21] MEDS ORDERED: Calcium Gluconate 1gm/50mL 1 GM/50 ML BAG IVPB ONE (07:07)
[2022-02-21] MEDS ORDERED: SODIUM ZIRCONIUM CYCLOSILICATE 5 GM POWD.PACK PO STA (07:08)
[2022-02-21] MEDS: predniSONE 20 MG TABLET PO SCH (07:31)
[2022-02-21] MEDS: Aspirin Enteric Coated 81 MG Tablet PO SCH (07:31)
[2022-02-21] MEDS: Gabapentin 100 MG CAPSULE PO SCH ×3 (07:31→20:55)
[2022-02-21] MEDS: Magnesium Oxide 400 MG TABLET PO SCH ×2 (07:31→20:55)
[2022-02-21] MEDS: allopurinoL 100 MG TABLET PO SCH ×2 (07:32→20:55)
[2022-02-21] MEDS: Cyanocobalamin (B-12) 1,000 MCG TABLET PO SCH (07:32)
[2022-02-21] MEDS: Insulin LISPRO 300 UNITS/3 ML VIAL SUBQ SCH ×6 (07:32→20:56)
[2022-02-21] MEDS: Budesonide/Formoterol 160/4.5 1 PUFF INH IH SCH ×2 (07:36→20:43)
[2022-02-21] MEDS: Tiotropium 10 INH DOSE IH SCH (07:36)
[2022-02-21] MEDS: Insulin DETEMIR 100 UNIT/ML X5UNITS SUBQ SCH ×2 (08:44→20:56)
[2022-02-21 09:33] LABS: Basophils % 0.2 %; Eosinophils % 0.2 %; Mean Platelet Volume 10.5 fL (9.4-12.4); Red Cell Distribution Width 14.8 % (11.5-14.5)
[2022-02-21 09:35] LABS: Hematocrit 23.8 % (35.3-44.9); Hemoglobin 7.3 g/dL (11.5-15.4); Immature Granulocytes % 0.7 % (0-4); Immature Platelets 3.6 % (1.1-6.1); Lymphocytes # 0.3 K/mcL (0.6-4.6); Mean Corpuscular HGB Conc 30.7 g/dL (31.6-35.5); Mean Corpuscular Hemoglobin 33.2 pg (28.0-33.3); Mean Corpuscular Volume 108.2 fL (83.0-100.0); Monocytes # 0.1 K/mcL (0.0-1.3); Neutrophils # 3.6 K/mcL (1.6-8.9); Segmented Neutrophils % 89.9 %
[2022-02-21 09:43] LABS: Platelet Count 90 K/mcL (140-400)
[2022-02-21] MEDS: cefTRIAXone 1,000 MG in Water for inj. (sterile) 10 ML IVP SCH (09:44)
[2022-02-21] MEDS: Azithromycin 250 MG TABLET PO SCH (09:44)
[2022-02-21 10:30] LABS: ABG Base Excess 5 mEq/L (-2 to 3); ABG HCO3 32 mEq/L (21-27); ABG Oxygen Saturation 90 % (95-98); ABG PCO2 61 mmHg (35-45); ABG PH 7.33 pH Units (7.32-7.45); ABG PO2 65 mmHg (85-104); ABG TCO2 34 mEq/L (20-26)
[2022-02-21] MEDS: Furosemide 40 MG TABLET PO SCH (11:56)
[2022-02-21] MEDS ORDERED: 0.9 % Sodium Chloride 250 ML IVC SCH (12:15)
[2022-02-21] MEDS: *HR* HYDROcodone/Acet 5/325 mg TABLET PO PRN (15:10)
[2022-02-21 17:03] LABS: Potassium 5.2 mEq/L (3.5-5.1)
[2022-02-21] MEDS ORDERED: Insulin LISPRO 300 UNITS/3 ML VIAL SUBQ ONE (17:10)
[2022-02-21] MEDS ORDERED: Insulin DETEMIR 100 UNIT/ML X5UNITS SUBQ SCH (21:00)
[2022-02-21 23:09] LABS: Calcium 9.4 mg/dL (8.6-10.3); Magnesium 2.5 mg/dL (1.6-2.6); Potassium 4.6 mEq/L (3.5-5.1)
[2022-02-22 02:20] LABS: Basophils % 0.2 %; Eosinophils % 0.4 %; Hematocrit 23.9 % (35.3-44.9); Hemoglobin 7.9 g/dL (11.5-15.4); Immature Granulocytes % 0.8 % (0-4); Immature Platelets 4.3 % (1.1-6.1); Lymphocytes # 0.5 K/mcL (0.6-4.6); Lymphocytes % 10.3 %; Mean Corpuscular HGB Conc 33.1 g/dL (31.6-35.5); Mean Corpuscular Hemoglobin 34.1 pg (28.0-33.3); Mean Platelet Volume 10.3 fL (9.4-12.4); Monocytes # 0.3 K/mcL (0.0-1.3); Monocytes % 5.9 %; Neutrophils # 4.3 K/mcL (1.6-8.9); Platelet Count 100 K/mcL (140-400); Red Blood Count 2.32 M/mcL (3.82-4.97); Red Cell Distribution Width 15.7 % (11.5-14.5); Segmented Neutrophils % 82.4 %; White Blood Count 5.2 K/mcL (4.3-11.1)
[2022-02-22 02:35] LABS: Calcium 9.7 mg/dL (8.6-10.3); Potassium 4.5 mEq/L (3.5-5.1)
[2022-02-22 02:52] LABS: Albumin 4.4 g/dL (3.5-5.7); Albumin/Globulin Ratio 1.3 (1.1-2.2); Bilirubin,Total 0.9 mg/dL (0.3-1.0); Calcium 9.6 mg/dL (8.6-10.3); Globulin 3.3 g/dL (2.4-3.5); Potassium 4.5 mEq/L (3.5-5.1); Total Protein 7.7 g/dL (6.4-8.9)
[2022-02-22] MEDS: Budesonide/Formoterol 160/4.5 1 PUFF INH IH SCH ×2 (07:45→20:15)
[2022-02-22] MEDS: Tiotropium 10 INH DOSE IH SCH (07:45)
[2022-02-22] MEDS: Furosemide 40 MG TABLET PO SCH (08:35)
[2022-02-22] MEDS: predniSONE 20 MG TABLET PO SCH (08:35)
[2022-02-22] MEDS: Aspirin Enteric Coated 81 MG Tablet PO SCH (08:35)
[2022-02-22] MEDS: allopurinoL 100 MG TABLET PO SCH ×2 (08:36→19:26)
[2022-02-22] MEDS: Magnesium Oxide 400 MG TABLET PO SCH ×2 (08:36→19:27)
[2022-02-22] MEDS: Insulin LISPRO 300 UNITS/3 ML VIAL SUBQ SCH ×7 (08:36→20:34)
[2022-02-22] MEDS: Insulin DETEMIR 100 UNIT/ML X5UNITS SUBQ SCH (08:36)
[2022-02-22] MEDS: Gabapentin 100 MG CAPSULE PO SCH ×3 (08:37→19:26)
[2022-02-22] MEDS: Cyanocobalamin (B-12) 1,000 MCG TABLET PO SCH (08:47)
[2022-02-22] MEDS: *HR* HYDROcodone/Acet 5/325 mg TABLET PO PRN ×2 (08:49→13:15)
[2022-02-22] MEDS: Lactulose Oral Soln 20 GM/30 ML UDC PO PRN (08:54)
[2022-02-22] MEDS ORDERED: Sennosides 8.6 MG TABLET PO PRN (09:46)
[2022-02-22] MEDS: cefTRIAXone 1,000 MG in Water for inj. (sterile) 10 ML IVP SCH (11:17)
[2022-02-22] MEDS ORDERED: Insulin DETEMIR 100 UNIT/ML X5UNITS SUBQ SCH (21:00)
[2022-02-23 02:20] LABS: Calcium 9.8 mg/dL (8.6-10.3); Magnesium 2.2 mg/dL (1.6-2.6); Phosphorous 3.9 mg/dL (2.7-4.5); Potassium 4.9 mEq/L (3.5-5.1)
[2022-02-23] MEDS: *HR* HYDROcodone/Acet 5/325 mg TABLET PO PRN ×2 (06:22→22:32)
[2022-02-23] MEDS: Budesonide/Formoterol 160/4.5 1 PUFF INH IH SCH ×2 (07:27→20:06)
[2022-02-23] MEDS: Tiotropium 10 INH DOSE IH SCH (07:27)
[2022-02-23] MEDS: Furosemide 40 MG TABLET PO SCH (07:49)
[2022-02-23] MEDS: predniSONE 20 MG TABLET PO SCH (07:49)
[2022-02-23] MEDS: Gabapentin 100 MG CAPSULE PO SCH ×3 (07:49→21:22)
[2022-02-23] MEDS: Aspirin Enteric Coated 81 MG Tablet PO SCH (07:49)
[2022-02-23] MEDS: levoFLOXacin 750 MG TABLET PO SCH (07:49)
[2022-02-23] MEDS: Magnesium Oxide 400 MG TABLET PO SCH ×2 (07:50→21:22)
[2022-02-23] MEDS: Cyanocobalamin (B-12) 1,000 MCG TABLET PO SCH (07:50)
[2022-02-23] MEDS: Insulin LISPRO 300 UNITS/3 ML VIAL SUBQ SCH ×7 (07:50→21:27)
[2022-02-23] MEDS: allopurinoL 100 MG TABLET PO SCH ×2 (07:50→21:22)
[2022-02-23] MEDS: Lactulose Oral Soln 20 GM/30 ML UDC PO PRN (08:03)
[2022-02-23] MEDS: Insulin DETEMIR 100 UNIT/ML X5UNITS SUBQ SCH ×2 (11:04→21:27)
[2022-02-23] MEDS ORDERED: Insulin Human Regular 8 UNIT in 0.9 % Sodium Chloride 10 ML IV ONE (17:39)
[2022-02-24] MEDS: Ondansetron 4 MG/2 ML VIAL IVP PRN (01:09)
[2022-02-24] MEDS: Tiotropium 10 INH DOSE IH SCH (07:28)
[2022-02-24] MEDS: Budesonide/Formoterol 160/4.5 1 PUFF INH IH SCH (07:28)
[2022-02-24 07:50] VITALS: BP 154/83; PULSE 83; TEMP 97.6; O2SAT 90
[2022-02-24] MEDS: allopurinoL 100 MG TABLET PO SCH (08:42)
[2022-02-24] MEDS: Aspirin Enteric Coated 81 MG Tablet PO SCH (08:42)
[2022-02-24] MEDS: Insulin LISPRO 300 UNITS/3 ML VIAL SUBQ SCH ×4 (08:42→11:56)
[2022-02-24] MEDS: levoFLOXacin 750 MG TABLET PO SCH (08:42)
[2022-02-24] MEDS: Furosemide 40 MG TABLET PO SCH (08:43)
[2022-02-24] MEDS: Gabapentin 100 MG CAPSULE PO SCH (08:44)
[2022-02-24] MEDS: predniSONE 20 MG TABLET PO SCH (08:44)
[2022-02-24] MEDS: Magnesium Oxide 400 MG TABLET PO SCH (08:44)
[2022-02-24] MEDS: Cyanocobalamin (B-12) 1,000 MCG TABLET PO SCH (08:44)
[2022-02-24] MEDS ORDERED: Insulin DETEMIR 100 UNIT/ML X5UNITS SUBQ SCH (09:00)
[2022-02-24] MEDS: Lactulose Oral Soln 20 GM/30 ML UDC PO PRN (09:02)
[2022-02-24 11:00] LABS: Estimated Average Glucose 111 mg/dl; Hemoglobin A1C 5.5 %
[2022-02-24] MEDS: *HR* HYDROcodone/Acet 5/325 mg TABLET PO PRN (11:58)
== END 2022-02-24 14:36 | disposition home health service (06) | DRG 291 ==
LOC: 2ANU → SUATTDRO 23:06
PROVIDERS: ADMIT Internal Medicine; ATTEND Internal Medicine

== ENCOUNTER 2022-04-08 15:09 | Inpatient (IN) ==
[2022-04-08] MEDS ORDERED: Iopamidol - 370 500 ML MLS IVP ONE (15:32)
[2022-04-08 15:57] LABS: Basophils % 0.3 %; Eosinophils # 0.2 K/mcL (0.0-0.6); Eosinophils % 2.3 %; Hematocrit 23.8 % (35.3-44.9); Hemoglobin 7.1 g/dL (11.5-15.4); Immature Granulocytes % 0.9 % (0-4); Lymphocytes # 0.8 K/mcL (0.6-4.6); Lymphocytes % 12.5 %; Mean Corpuscular HGB Conc 29.8 g/dL (31.6-35.5); Mean Corpuscular Hemoglobin 33.3 pg (28.0-33.3); Mean Corpuscular Volume 111.7 fL (83.0-100.0); Mean Platelet Volume 10.4 fL (9.4-12.4); Monocytes # 0.4 K/mcL (0.0-1.3); Monocytes % 5.9 %; Neutrophils # 5.2 K/mcL (1.6-8.9); Nucleated Red Blood Cells 0.3 /100 WBC (0); Platelet Count 102 K/mcL (140-400); Red Blood Count 2.13 M/mcL (3.82-4.97); Red Cell Distribution Width 18.6 % (11.5-14.5); Segmented Neutrophils % 78.1 %; White Blood Count 6.6 K/mcL (4.3-11.1)
[2022-04-08] MEDS ORDERED: Furosemide 40 MG/4 ML VIAL IVP ONE (16:01)
[2022-04-08 16:03] LABS: VBG HCO3 33 mEq/L (21-27); VBG PCO2 72 mmHg (41-51); VBG PH 7.27 pH Units (7.32-7.42); VBG PO2 96 mmHg (25-50)
[2022-04-08 16:16] LABS: Anisocytosis 1+ (Not Present); Hypochromasia Present (Not Present); Macrocytosis Present (Not Present); Platelet Estimate Decreased (Normal)
[2022-04-08] MEDS ORDERED: Furosemide 20 MG/2 ML VIAL IVP ONE (16:17)
[2022-04-08 16:20] LABS: Alanine Aminotransferase 16 Units/L (7-52); Albumin 3.6 g/dL (3.5-5.7); Albumin/Globulin Ratio 0.9 (1.1-2.2); Alkaline Phosphatase 122 Units/L (34-104); Aspartate Amino Transferase 24 Units/L (13-39); BUN/Creatinine Ratio 35 (6-26); Bilirubin,Direct 0.2 mg/dL (0.0-0.2); Bilirubin,Indirect 0.8 mg/dL (0.0-1.0); Blood Urea Nitrogen 80 mg/dL (8-23); Calcium 8.9 mg/dL (8.6-10.3); Carbon Dioxide 33 mEq/L (23-29); Chloride 97 mEq/L (98-107); Globulin 3.9 g/dL (2.4-3.5); Glucose 137 mg/dL (70-105); Osmolality,Calculated 306 (280-300); Potassium 4.6 mEq/L (3.5-5.1); Sodium 135 mEq/L (136-145); Total Protein 7.5 g/dL (6.4-8.9); eGFR For African Americans 26 (> 60); eGFR For Non-African Americans 21 (> 60)
[2022-04-08 16:51] LABS: Troponin I < 0.03 ng/mL (< 0.04)
[2022-04-08 16:58] LABS: Amphetamine Screen,Urine Negative ng/mL (Cutoff=1000); Barbiturate Screen,Urine Negative ng/mL (Cutoff=200); Benzodiazepines Screen,Urine Negative ng/mL (Cutoff=200); Cannabinoid Screen,Urine Negative ng/mL (Cutoff = 50); Cocaine Screen,Urine Negative ng/mL (Cutoff= 300); Opiate Screen,Urine Positive ng/mL (Cutoff=300); Phencyclidine Screen,Urine Negative ng/mL (Cutoff=25)
[2022-04-08 17:15] LABS: Influenza A PCR Negative (Negative); Influenza B PCR Negative (Negative); Resp. Syncytial Virus PCR Negative (Negative)
[2022-04-08 17:20] LABS: SARS-CoV-2 by PCR (In House) Negative (Negative)
[2022-04-08] MEDS ORDERED: Ipratropium/Albuterol Neb 3 ML IH ONE (18:32)
[2022-04-08 19:05] LABS: VBG HCO3 33 mEq/L (21-27); VBG PCO2 75 mmHg (41-51); VBG PH 7.24 pH Units (7.32-7.42); VBG PO2 92 mmHg (25-50)
[2022-04-08] MEDS ORDERED: Ondansetron 4 MG/2 ML VIAL IVP PRN (20:00)
[2022-04-08] MEDS ORDERED: Naloxone 0.4 MG/ML INJ IVP PRN (20:00)
[2022-04-08] MEDS ORDERED: *HR* Dextrose 50 % in Water (Syg) 50 ML SYRINGE IVP PRN (20:05)
[2022-04-08] MEDS ORDERED: Dextrose Gel 15 GM/37.5 ML TUBE PO PRN ×2 (20:05)
[2022-04-08] MEDS ORDERED: D5% in Water 1,000 ML IVC PRN (20:05)
[2022-04-08] MEDS ORDERED: Albuterol 2.5 MG/3 ML NEBULIZER IH PRN (20:07)
[2022-04-08] MEDS ORDERED: polyethylene glycoL 3350 17 GM POWD.PACK PO PRN (20:09)
[2022-04-08] MEDS ORDERED: Sennosides/Docusate Sodium TABLET PO PRN (20:09)
[2022-04-08 22:01] LABS: Hematocrit 22.6 % (35.3-44.9); Hemoglobin 6.7 g/dL (11.5-15.4); Immature Platelets 4.1 % (1.1-6.1); Mean Corpuscular HGB Conc 29.6 g/dL (31.6-35.5); Mean Corpuscular Hemoglobin 33.3 pg (28.0-33.3); Mean Corpuscular Volume 112.4 fL (83.0-100.0); Mean Platelet Volume 10.3 fL (9.4-12.4); Red Blood Count 2.01 M/mcL (3.82-4.97); Red Cell Distribution Width 18.6 % (11.5-14.5); White Blood Count 5.6 K/mcL (4.3-11.1)
[2022-04-08 22:07] LABS: INR 1.2; Prothrombin Time 13.1 Seconds (9.4-12.1)
[2022-04-08] MEDS ORDERED: 0.9 % Sodium Chloride 500 ML ONE (22:18)
[2022-04-08] MEDS: Ipratropium/Albuterol Neb 3 ML IH SCH (22:20)
[2022-04-08 22:26] LABS: ABG Base Excess 5 mEq/L (-2 to 3); ABG HCO3 33 mEq/L (21-27); ABG Oxygen Saturation 97 % (95-98); ABG PCO2 70 mmHg (35-45); ABG PH 7.27 pH Units (7.32-7.45); ABG PO2 104 mmHg (85-104); ABG TCO2 35 mEq/L (20-26); Blood Gas VT 500 cc
[2022-04-08] MEDS ORDERED: 0.9 % Sodium Chloride 250 ML IVC SCH (22:30)
[2022-04-08] MEDS: Nystatin POWDER 30 GM BOTTLE TP SCH (22:35)
[2022-04-08] MEDS: Azithromycin 500 MG in 0.9 % Sodium Chloride 250 ML IVPB SCH (22:35)
[2022-04-09 02:00] LABS: ABG Base Excess 5 mEq/L (-2 to 3); ABG HCO3 32 mEq/L (21-27); ABG Oxygen Saturation 95 % (95-98); ABG PCO2 64 mmHg (35-45); ABG PH 7.31 pH Units (7.32-7.45); ABG PO2 85 mmHg (85-104); ABG TCO2 34 mEq/L (20-26); Blood Gas VT 500 cc
[2022-04-09] MEDS: Ipratropium/Albuterol Neb 3 ML IH SCH ×4 (04:12→23:08)
[2022-04-09 04:56] LABS: Hepatitis B Surface Antigen Nonreactive (Nonreactive)
[2022-04-09 05:25] LABS: Hepatitis C Virus Antibody Nonreactive (Nonreactive)
[2022-04-09 05:26] LABS: Hepatitis A Antibody IgM Nonreactive (Nonreactive); Hepatitis B Core IgM Nonreactive (Nonreactive)
[2022-04-09 05:42] LABS: Hemoglobin 6.7 g/dL (11.5-15.4); Mean Platelet Volume 10.7 fL (9.4-12.4); Red Cell Distribution Width 18.7 % (11.5-14.5)
[2022-04-09 05:43] LABS: Hematocrit 22.4 % (35.3-44.9); Immature Platelets 3.4 % (1.1-6.1); Mean Corpuscular HGB Conc 29.9 g/dL (31.6-35.5); Mean Corpuscular Hemoglobin 33.5 pg (28.0-33.3); White Blood Count 4.8 K/mcL (4.3-11.1)
[2022-04-09 06:20] LABS: Folate 13.9 ng/mL (3.0-16.0)
[2022-04-09] MEDS: Insulin LISPRO 300 UNITS/3 ML VIAL SUBQ SCH ×3 (06:36→12:00)
[2022-04-09 06:52] LABS: Albumin 3.4 g/dL (3.5-5.7); Albumin/Globulin Ratio 0.9 (1.1-2.2); Bilirubin,Total 0.9 mg/dL (0.3-1.0); Calcium 8.9 mg/dL (8.6-10.3); Globulin 3.7 g/dL (2.4-3.5); Magnesium 1.9 mg/dL (1.6-2.6); Phosphorous 4.2 mg/dL (2.7-4.5); Potassium 4.3 mEq/L (3.5-5.1); Total Protein 7.1 g/dL (6.4-8.9)
[2022-04-09] MEDS: Furosemide 40 MG/4 ML VIAL IVP SCH (08:34)
[2022-04-09] MEDS ORDERED: predniSONE 20 MG TABLET PO SCH (09:00)
[2022-04-09 11:14] LABS: ABG Base Excess 8 mEq/L (-2 to 3); ABG HCO3 35 mEq/L (21-27); ABG Oxygen Saturation 99 % (95-98); ABG PCO2 62 mmHg (35-45); ABG PH 7.35 pH Units (7.32-7.45); ABG PO2 135 mmHg (85-104); ABG TCO2 37 mEq/L (20-26); Blood Gas Modality BiLevel; Blood Gas VT 500 cc
[2022-04-09] MEDS: Nystatin POWDER 30 GM BOTTLE TP SCH ×3 (16:39→21:49)
[2022-04-09] MEDS: MethylPREDNISolone 40 MG/ML VIAL IVP SCH (16:39)
[2022-04-09] MEDS: Azithromycin 500 MG in 0.9 % Sodium Chloride 250 ML IVPB SCH (21:48)
[2022-04-10] MEDS: Insulin LISPRO 300 UNITS/3 ML VIAL SUBQ SCH ×6 (01:37→20:41)
[2022-04-10] MEDS: MethylPREDNISolone 40 MG/ML VIAL IVP SCH ×4 (01:37→23:32)
[2022-04-10 01:46] LABS: Basophils % 0.2 %; Red Cell Distribution Width 18.7 % (11.5-14.5)
[2022-04-10 01:48] LABS: Hematocrit 26.3 % (35.3-44.9); Immature Platelets 2.3 % (1.1-6.1); Lymphocytes # 0.3 K/mcL (0.6-4.6); Lymphocytes % 7.2 %; Mean Corpuscular HGB Conc 30.4 g/dL (31.6-35.5); Mean Corpuscular Hemoglobin 33.3 pg (28.0-33.3); Mean Corpuscular Volume 109.6 fL (83.0-100.0); Monocytes # 0.1 K/mcL (0.0-1.3); Monocytes % 1.5 %; Neutrophils # 3.6 K/mcL (1.6-8.9); Segmented Neutrophils % 90.1 %
[2022-04-10 01:52] LABS: Platelet Count 89 K/mcL (140-400)
[2022-04-10 02:05] LABS: Calcium 9.5 mg/dL (8.6-10.3); Magnesium 1.9 mg/dL (1.6-2.6); Potassium 4.8 mEq/L (3.5-5.1)
[2022-04-10] MEDS: Ipratropium/Albuterol Neb 3 ML IH SCH ×4 (04:33→23:02)
[2022-04-10] MEDS: Furosemide 40 MG/4 ML VIAL IVP SCH (08:48)
[2022-04-10] MEDS: Nystatin POWDER 30 GM BOTTLE TP SCH ×3 (08:49→20:31)
[2022-04-10] MEDS ORDERED: Insulin DETEMIR 100 UNIT/ML X5UNITS SUBQ SCH (13:15)
[2022-04-10] MEDS ORDERED: Insulin LISPRO 300 UNITS/3 ML VIAL SUBQ ONE (17:30)
[2022-04-10] MEDS: Azithromycin 500 MG in 0.9 % Sodium Chloride 250 ML IVPB SCH (20:33)
[2022-04-10] MEDS: Magnesium Oxide 400 MG TABLET PO SCH (20:36)
[2022-04-10] MEDS: allopurinoL 100 MG TABLET PO SCH (20:36)
[2022-04-10] MEDS: Gabapentin 100 MG CAPSULE PO SCH (20:37)
[2022-04-10] MEDS: Insulin DETEMIR 100 UNIT/ML X5UNITS SUBQ SCH (20:41)
[2022-04-10] MEDS: Budesonide/Formoterol 160/4.5 1 PUFF INH IH SCH (23:03)
[2022-04-10] MEDS: Melatonin 3 MG TABLET PO PRN (23:41)
[2022-04-11] MEDS ORDERED: *HR* LORazepam 2 MG/ML VIAL IVP ONE (02:59)
[2022-04-11 03:06] LABS: Immature Granulocytes % 0.7 % (0-4); Mean Corpuscular Volume 106.4 fL (83.0-100.0); Segmented Neutrophils % 91.5 %
[2022-04-11 03:08] LABS: Hematocrit 26.5 % (35.3-44.9); Hemoglobin 8.2 g/dL (11.5-15.4); Immature Platelets 2.2 % (1.1-6.1); Lymphocytes # 0.3 K/mcL (0.6-4.6); Lymphocytes % 5.4 %; Mean Corpuscular HGB Conc 30.9 g/dL (31.6-35.5); Mean Corpuscular Hemoglobin 32.9 pg (28.0-33.3); Monocytes # 0.1 K/mcL (0.0-1.3); Monocytes % 2.4 %; Neutrophils # 5.2 K/mcL (1.6-8.9); Platelet Count 94 K/mcL (140-400); Red Blood Count 2.49 M/mcL (3.82-4.97); Red Cell Distribution Width 17.7 % (11.5-14.5); White Blood Count 5.7 K/mcL (4.3-11.1)
[2022-04-11 03:32] LABS: Calcium 9.4 mg/dL (8.6-10.3); Magnesium 1.9 mg/dL (1.6-2.6); Potassium 4.5 mEq/L (3.5-5.1)
[2022-04-11] MEDS: Ipratropium/Albuterol Neb 3 ML IH SCH ×4 (04:38→22:41)
[2022-04-11] MEDS: Insulin LISPRO 300 UNITS/3 ML VIAL SUBQ SCH ×7 (08:50→20:20)
[2022-04-11] MEDS: Aspirin Enteric Coated 81 MG Tablet PO SCH (08:51)
[2022-04-11] MEDS: Isosorbide MONOnitrate (24 HR) 60 MG TAB.ER.24H PO SCH (08:51)
[2022-04-11] MEDS: MethylPREDNISolone 40 MG/ML VIAL IVP SCH (08:51)
[2022-04-11] MEDS: Nystatin POWDER 30 GM BOTTLE TP SCH ×3 (08:52→20:36)
[2022-04-11] MEDS: allopurinoL 100 MG TABLET PO SCH ×2 (08:52→20:22)
[2022-04-11] MEDS: Furosemide 40 MG TABLET PO SCH (08:52)
[2022-04-11] MEDS: Gabapentin 100 MG CAPSULE PO SCH ×3 (08:52→20:21)
[2022-04-11] MEDS: Magnesium Oxide 400 MG TABLET PO SCH ×2 (08:52→20:22)
[2022-04-11] MEDS: Insulin DETEMIR 100 UNIT/ML X5UNITS SUBQ SCH ×2 (08:54→20:21)
[2022-04-11] MEDS: Acetaminophen 325 MG TABLET PO PRN ×3 (08:57→21:42)
[2022-04-11] MEDS: Budesonide/Formoterol 160/4.5 1 PUFF INH IH SCH ×2 (10:35→22:41)
[2022-04-11] MEDS: Azithromycin 500 MG in 0.9 % Sodium Chloride 250 ML IVPB SCH (20:16)
[2022-04-11] MEDS: Melatonin 3 MG TABLET PO PRN (20:21)
[2022-04-12] MEDS: Acetaminophen 325 MG TABLET PO PRN ×2 (03:45→10:31)
[2022-04-12] MEDS: Ipratropium/Albuterol Neb 3 ML IH SCH ×2 (04:05→10:41)
[2022-04-12 07:05] LABS: Immature Granulocytes % 0.4 % (0-4); Immature Platelets 1.7 % (1.1-6.1); Lymphocytes # 0.4 K/mcL (0.6-4.6); Lymphocytes % 7.7 %; Mean Corpuscular HGB Conc 30.8 g/dL (31.6-35.5); Mean Corpuscular Hemoglobin 33.2 pg (28.0-33.3); Mean Corpuscular Volume 107.9 fL (83.0-100.0); Monocytes # 0.4 K/mcL (0.0-1.3); Monocytes % 6.7 %; Neutrophils # 4.9 K/mcL (1.6-8.9); Red Blood Count 2.41 M/mcL (3.82-4.97); Segmented Neutrophils % 85.2 %; White Blood Count 5.7 K/mcL (4.3-11.1)
[2022-04-12 07:13] LABS: Platelet Count 82 K/mcL (140-400)
[2022-04-12 07:42] VITALS: TEMP 97.9
[2022-04-12 07:49] LABS: Calcium 9.7 mg/dL (8.6-10.3); Magnesium 1.9 mg/dL (1.6-2.6); Potassium 4.4 mEq/L (3.5-5.1)
[2022-04-12] MEDS: Gabapentin 100 MG CAPSULE PO SCH ×2 (08:05→11:58)
[2022-04-12] MEDS: Furosemide 40 MG TABLET PO SCH (08:05)
[2022-04-12] MEDS: Magnesium Oxide 400 MG TABLET PO SCH (08:05)
[2022-04-12] MEDS: Aspirin Enteric Coated 81 MG Tablet PO SCH (08:05)
[2022-04-12] MEDS: allopurinoL 100 MG TABLET PO SCH (08:05)
[2022-04-12] MEDS: Isosorbide MONOnitrate (24 HR) 60 MG TAB.ER.24H PO SCH (08:10)
[2022-04-12] MEDS: Insulin DETEMIR 100 UNIT/ML X5UNITS SUBQ SCH (08:12)
[2022-04-12] MEDS: Insulin LISPRO 300 UNITS/3 ML VIAL SUBQ SCH ×4 (08:13→12:00)
[2022-04-12] MEDS ORDERED: PrednisoLONE Oral Soln 15 MG/5 ML UDC PO SCH (09:00)
[2022-04-12 10:24] VITALS: BP 138/63; PULSE 67
[2022-04-12] MEDS: Nystatin POWDER 30 GM BOTTLE TP SCH (10:32)
[2022-04-12] MEDS: Budesonide/Formoterol 160/4.5 1 PUFF INH IH SCH (10:41)
[2022-04-12 10:46] VITALS: O2SAT 95
== END 2022-04-12 13:10 | disposition home or self-care (01) | DRG 291 ==
LOC: EMEROOARM 15:09 → 3NENU 15:09 → SUATTDRO 04-09 16:42
PROVIDERS: ADMIT Internal Medicine; ATTEND Hospitalist

== ENCOUNTER 2022-06-29 11:23 | Observation (INO) ==
[2022-06-29 12:36] LABS: Hemoglobin 8.4 g/dL (11.5-15.4); Immature Granulocytes % 0.4 % (0-4); Mean Corpuscular Volume 112.9 fL (83.0-100.0); Red Cell Distribution Width 15.9 % (11.5-14.5)
[2022-06-29 12:39] LABS: Basophils % 0.4 %; Eosinophils # 0.1 K/mcL (0.0-0.6); Eosinophils % 1.8 %; Hematocrit 28.9 % (35.3-44.9); Lymphocytes # 0.8 K/mcL (0.6-4.6); Lymphocytes % 13.9 %; Mean Corpuscular HGB Conc 29.1 g/dL (31.6-35.5); Mean Corpuscular Hemoglobin 32.8 pg (28.0-33.3); Mean Platelet Volume 10.5 fL (9.4-12.4); Monocytes # 0.5 K/mcL (0.0-1.3); Monocytes % 8.3 %; Neutrophils # 4.1 K/mcL (1.6-8.9); Red Blood Count 2.56 M/mcL (3.82-4.97); Segmented Neutrophils % 75.2 %; White Blood Count 5.5 K/mcL (4.3-11.1)
[2022-06-29 12:40] LABS: Platelet Count 97 K/mcL (140-400)
[2022-06-29 12:56] LABS: Troponin I < 0.03 ng/mL (< 0.04)
[2022-06-29 13:06] LABS: Anisocytosis 1+ (Not Present); Macrocytosis Present (Not Present); Platelet Estimate Decreased (Normal)
[2022-06-29 13:13] LABS: Influenza A PCR Negative (Negative); Influenza B PCR Negative (Negative); Resp. Syncytial Virus PCR Negative (Negative)
[2022-06-29 13:23] LABS: SARS-CoV-2 by PCR (In House) Negative (Negative)
[2022-06-29 13:32] LABS: BUN/Creatinine Ratio 21 (6-26); Blood Urea Nitrogen 37 mg/dL (8-23); Calcium 8.6 mg/dL (8.6-10.3); Carbon Dioxide 30 mEq/L (23-29); Chloride 101 mEq/L (98-107); Glucose 58 mg/dL (70-105); Osmolality,Calculated 294 (280-300); Potassium 4.4 mEq/L (3.5-5.1); Sodium 139 mEq/L (136-145)
[2022-06-29 14:01] LABS: Alanine Aminotransferase 23 Units/L (7-52); Albumin 3.8 g/dL (3.5-5.7); Albumin/Globulin Ratio 0.9 (1.1-2.2); Alkaline Phosphatase 151 Units/L (34-104); Aspartate Amino Transferase 45 Units/L (13-39); Bilirubin,Direct 0.3 mg/dL (0.0-0.2); Bilirubin,Indirect 0.9 mg/dL (0.0-1.0); Bilirubin,Total 1.2 mg/dL (0.3-1.0); Globulin 4.3 g/dL (2.4-3.5); Total Protein 8.1 g/dL (6.4-8.9)
[2022-06-29] MEDS ORDERED: Metoclopramide 10 MG/2 ML VIAL IVP ONE (14:59)
[2022-06-29] MEDS ORDERED: Furosemide 40 MG/4 ML VIAL IVP ONE (15:12)
[2022-06-29] MEDS ORDERED: Nitroglycerin 0.4 MG TAB.SUBL SL STA (15:12)
[2022-06-29] MEDS ORDERED: Ipratropium/Albuterol Neb 3 ML IH PRN (17:39)
[2022-06-29] MEDS ORDERED: Naloxone 0.4 MG/ML INJ IVP PRN (17:39)
[2022-06-29] MEDS ORDERED: Furosemide 40 MG/4 ML VIAL IVP SCH (18:00)
[2022-06-29] MEDS ORDERED: *HR* Dextrose 50 % in Water (Syg) 50 ML SYRINGE IVP PRN (18:22)
[2022-06-29] MEDS ORDERED: Dextrose Gel 15 GM/37.5 ML TUBE PO PRN ×2 (18:22)
[2022-06-29] MEDS ORDERED: D5% in Water 1,000 ML IVC PRN (18:22)
[2022-06-29] MEDS ORDERED: Ondansetron 4 MG/2 ML VIAL IVP ONE (19:16)
[2022-06-29] MEDS ORDERED: Insulin LISPRO 300 UNITS/3 ML VIAL SUBQ SCH (21:00)
[2022-06-30] MEDS: MethylPREDNISolone 40 MG/ML VIAL IVP SCH ×3 (00:36→17:01)
[2022-06-30 04:27] LABS: Basophils % 0.3 %; Mean Corpuscular Volume 110.4 fL (83.0-100.0)
[2022-06-30 04:30] LABS: Eosinophils % 1.1 %; Hematocrit 27.6 % (35.3-44.9); Hemoglobin 8.3 g/dL (11.5-15.4); Immature Granulocytes % 0.5 % (0-4); Immature Platelets 3.4 % (1.1-6.1); Lymphocytes # 0.5 K/mcL (0.6-4.6); Lymphocytes % 12.5 %; Mean Corpuscular HGB Conc 30.1 g/dL (31.6-35.5); Mean Corpuscular Hemoglobin 33.2 pg (28.0-33.3); Mean Platelet Volume 10.3 fL (9.4-12.4); Monocytes # 0.1 K/mcL (0.0-1.3); Monocytes % 3.5 %; Neutrophils # 3.1 K/mcL (1.6-8.9); Red Cell Distribution Width 15.8 % (11.5-14.5); Segmented Neutrophils % 82.1 %; White Blood Count 3.8 K/mcL (4.3-11.1)
[2022-06-30 04:34] LABS: Platelet Count 77 K/mcL (140-400)
[2022-06-30 04:46] LABS: Calcium 8.8 mg/dL (8.6-10.3); Magnesium 2.1 mg/dL (1.6-2.6); Potassium 4.8 mEq/L (3.5-5.1)
[2022-06-30 05:02] LABS: Platelet Estimate Decreased (Normal)
[2022-06-30] MEDS ORDERED: Insulin LISPRO 300 UNITS/3 ML VIAL SUBQ SCH (07:30)
[2022-06-30] MEDS ORDERED: Metoprolol 100 MG TABLET PO SCH (09:00)
[2022-06-30] MEDS: Budesonide/Formoterol 160/4.5 1 PUFF INH IH SCH ×2 (10:08→21:10)
[2022-06-30] MEDS: Aspirin Enteric Coated 81 MG Tablet PO SCH (10:21)
[2022-06-30] MEDS: Azithromycin 250 MG TABLET PO SCH (10:22)
[2022-06-30] MEDS: Furosemide 40 MG/4 ML VIAL IVP SCH ×2 (10:22→17:01)
[2022-06-30] MEDS: *HR* HYDROcodone/Acet 5/325 mg TABLET PO PRN ×2 (17:02→21:36)
[2022-06-30] MEDS ORDERED: *HR* LORazepam 1 MG TABLET PO PRN (17:43)
[2022-06-30] MEDS ORDERED: Ondansetron ODT 4 MG TAB.RAPDIS PO PRN (17:43)
[2022-06-30] MEDS: Magnesium Oxide 400 MG TABLET PO SCH (21:36)
[2022-06-30] MEDS: allopurinoL 100 MG TABLET PO SCH (21:36)
[2022-06-30] MEDS: Gabapentin 100 MG CAPSULE PO SCH (21:36)
[2022-07-01] MEDS: *HR* HYDROcodone/Acet 5/325 mg TABLET PO PRN ×2 (06:03→11:01)
[2022-07-01] MEDS: MethylPREDNISolone 40 MG/ML VIAL IVP SCH (06:03)
[2022-07-01 06:06] LABS: Hematocrit 25.5 % (35.3-44.9); Hemoglobin 7.8 g/dL (11.5-15.4); Immature Granulocytes % 0.3 % (0-4); Mean Corpuscular HGB Conc 30.6 g/dL (31.6-35.5)
[2022-07-01 06:07] LABS: Immature Platelets 3.9 % (1.1-6.1); Lymphocytes # 0.3 K/mcL (0.6-4.6); Lymphocytes % 8.4 %; Mean Corpuscular Hemoglobin 33.1 pg (28.0-33.3); Mean Corpuscular Volume 108.1 fL (83.0-100.0); Mean Platelet Volume 10.4 fL (9.4-12.4); Monocytes # 0.1 K/mcL (0.0-1.3); Monocytes % 4.2 %; Neutrophils # 2.7 K/mcL (1.6-8.9); Red Blood Count 2.36 M/mcL (3.82-4.97); Red Cell Distribution Width 15.3 % (11.5-14.5); Segmented Neutrophils % 87.1 %; White Blood Count 3.1 K/mcL (4.3-11.1)
[2022-07-01 06:08] LABS: Platelet Count 70 K/mcL (140-400)
[2022-07-01 07:04] LABS: Calcium 8.7 mg/dL (8.6-10.3); Magnesium 2.1 mg/dL (1.6-2.6); Phosphorous 4.1 mg/dL (2.7-4.5); Potassium 4.6 mEq/L (3.5-5.1)
[2022-07-01] MEDS: Budesonide/Formoterol 160/4.5 1 PUFF INH IH SCH ×2 (07:42→20:27)
[2022-07-01] MEDS: Aspirin Enteric Coated 81 MG Tablet PO SCH (09:16)
[2022-07-01] MEDS: Isosorbide MONOnitrate (24 HR) 60 MG TAB.ER.24H PO SCH (09:16)
[2022-07-01] MEDS: allopurinoL 100 MG TABLET PO SCH ×2 (09:16→22:00)
[2022-07-01] MEDS: Gabapentin 100 MG CAPSULE PO SCH ×4 (09:16→22:42)
[2022-07-01] MEDS: Azithromycin 250 MG TABLET PO SCH (09:16)
[2022-07-01] MEDS: Magnesium Oxide 400 MG TABLET PO SCH ×2 (09:17→22:00)
[2022-07-01] MEDS: Furosemide 40 MG/4 ML VIAL IVP SCH ×2 (09:17→18:35)
[2022-07-01] MEDS: Insulin LISPRO 300 UNITS/3 ML VIAL SUBQ SCH ×3 (09:17→18:36)
[2022-07-01] MEDS ORDERED: Insulin Human Regular 5 UNIT in 0.9 % Sodium Chloride 10 ML IV ONE (12:18)
[2022-07-01] MEDS ORDERED: Insulin DETEMIR 100 UNIT/ML X5UNITS SUBQ SCH (21:00)
[2022-07-02] MEDS: Budesonide/Formoterol 160/4.5 1 PUFF INH IH SCH (07:43)
[2022-07-02 08:21] LABS: Eosinophils % 0.2 %; Hematocrit 27.3 % (35.3-44.9); Hemoglobin 8.3 g/dL (11.5-15.4); Immature Granulocytes % 0.4 % (0-4); Lymphocytes # 0.6 K/mcL (0.6-4.6); Lymphocytes % 11.9 %; Mean Corpuscular HGB Conc 30.4 g/dL (31.6-35.5); Mean Corpuscular Hemoglobin 32.5 pg (28.0-33.3); Mean Corpuscular Volume 107.1 fL (83.0-100.0); Mean Platelet Volume 10.1 fL (9.4-12.4); Monocytes # 0.4 K/mcL (0.0-1.3); Monocytes % 8.4 %; Neutrophils # 4.1 K/mcL (1.6-8.9); Red Blood Count 2.55 M/mcL (3.82-4.97); Red Cell Distribution Width 15.3 % (11.5-14.5); Segmented Neutrophils % 79.1 %
[2022-07-02 08:23] LABS: Platelet Count 91 K/mcL (140-400); White Blood Count 5.2 K/mcL (4.3-11.1)
[2022-07-02 08:40] LABS: Calcium 9.2 mg/dL (8.6-10.3); Potassium 4.2 mEq/L (3.5-5.1)
[2022-07-02] MEDS ORDERED: predniSONE 20 MG TABLET PO SCH (09:00)
[2022-07-02] MEDS ORDERED: Insulin DETEMIR 100 UNIT/ML X5UNITS SUBQ SCH (09:00)
[2022-07-02] MEDS: allopurinoL 100 MG TABLET PO SCH (09:13)
[2022-07-02] MEDS: Magnesium Oxide 400 MG TABLET PO SCH (09:13)
[2022-07-02] MEDS: Aspirin Enteric Coated 81 MG Tablet PO SCH (09:13)
[2022-07-02] MEDS: Gabapentin 100 MG CAPSULE PO SCH ×2 (09:13→12:44)
[2022-07-02] MEDS: Isosorbide MONOnitrate (24 HR) 60 MG TAB.ER.24H PO SCH (09:13)
[2022-07-02] MEDS: Furosemide 40 MG/4 ML VIAL IVP SCH (09:14)
[2022-07-02] MEDS: Insulin LISPRO 300 UNITS/3 ML VIAL SUBQ SCH ×4 (09:14→12:45)
[2022-07-02] MEDS: Azithromycin 250 MG TABLET PO SCH (09:14)
[2022-07-02 11:36] VITALS: BP 104/58; PULSE 86; TEMP 98.3; O2SAT 97
== END 2022-07-02 13:03 | disposition home or self-care (01) ==
LOC: EMEROOARM 11:23 → 2ANU 11:23 → SUATTDRO 17:19 → 2ANU 18:17
PROVIDERS: ADMIT Internal Medicine; ATTEND Internal Medicine